=== PATIENT | female | born 1945 | race Caucasian/White ===

== ENCOUNTER → 2017-11-12 | Outpatient (CLI) | payer BC ==
[~2017-11-12] MED LIST: ASPCH81X PO; CALC500T25 PO; CHOL100010 PO; FAMO20TA11 PO; GLUC1500 PO; LISI20TA3 PO; METO50TA16 PO; MOUTLIQ79 PO; OMEG12006 PO; RSTOPS OP; SIMV40TA2 PO
[2017-11-12 13:15] VITALS: BP 150/72; PULSE 60; TEMP 36.4; O2SAT 93
--- NOTE | 2017-11-12 16:39 | Radiation Oncology Follow-Up ---
Radiation Oncology Follow-Up Date of Visit Nov 12, 2017. Reason For Visit 6 month follow up Radiation Completion Date APBI - 04/25/15 Diagnosis (1) Carcinoma in situ of breast Status: Acute Onset Date: 02/09/2015 Stage: 0 Permanent Comment: Abnormal right breast mammogram 12/30/2014 Status post stereotactic biopsy 02/09/2015 revealing DCIS Estrogen receptor positive and progesterone receptor positive Status post right partial mastectomy 03/10/2015 Stage [id number] Status post completion of radiation therapy 04/25/2015 utilizing accelerated partial breast treatment. Received 3850 cGy Last Edited By: Irene Jimenes on May 24, 2015 14:21 History of Present Illness Ms. Ortega has a history of breast cancer. The patient's mother in her late 70s with a history of breast cancer treated with mastectomy. She from a pancreatic cancer. She has been followed with screening mammograms and her most recent was on 12/30/2014. In the right breast a clustered fine pleomorphic linear branching calcifications were present at the 3 o'clock position. Additional views were recommended. On 01/12/2015 a digital diagnostic and magnification view images were taken. This showed greater than 10 clustered pleomorphic, linear and branching calcifications in the upper inner quadrant posteriorly. This was given a BI-RADS Category 4C. On 2014 patient underwent a stereotactic guided biopsy of the right breast lesion. 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 Estrogen receptors were positive (100%, strong intensity) . Progesterone receptors were positive (5%, strong intensity). The size of the DCIS was 1 cm in greatest dimension. Case: [id number]. Patient was seen by Dr. Chon Becerra who discussed treatment options with the patient. The patient opted to proceed with breast conserving therapy. Therefore on 03/10/2015 the patient underwent a needle localized right partial mastectomy. The partial mastectomy specimen confirmed residual ductal carcinoma in situ, solid with comedo necrosis and nuclear grade 3 of 3. The extent of DCIS was estimated at 1.5 cm. The margins were uninvolved by DCIS. The DCIS extended to within 0.6 cm at the superior margin, 0.6 cm of the deep margin and 1 cm from the medial margin. Microcalcifications were present associated with DCIS. No invasive carcinoma was identified. The staging was pTis pNx. Case: [id number]. We were asked to see the patient in referral to discuss with her the role of adjuvant radiation. She return to our office and underwent a CT simulation. She was found to be a good candidate for accelerated partial breast therapy. Interim History She been doing well over the past 6 months. She denies any changes to her breast. She has noted no masses or tenderness and no change of the axilla. She has had no swelling of her arm. She is up-to-date on mammography. She had been a patient of . He has now retired. She is requesting that we order and schedule her follow-up mammography. She had been having her mammograms in [place]. She lives in [place]. She would like to have her mammograms closer to home. Allergies Coded Allergies: No Known Allergies (Unverified , 04/07/15) Home Medications Scheduled Aspirin (Aspirin Chewable), 81 MG PO DAILY Calcium Carbonate (Calcium), 1 TAB PO DAILY Cholecalciferol (Vitamin D), 1,000 INTER.UNIT PO DAILY Cyclosporine (Restasis Eye Drops), 1 DROP OP BID Famotidine (Pepcid), 20 MG PO BID Enfoigrqbqo-Kebkwzfgrdk-Xyh C- (Glucosamine Chondroitin 1), 1 CAP PO BIDM Lisinopril (Prinivil), 1 TAB PO DAILY Metoprolol Tartrate (Lopressor) (Lopressor), 1 TAB PO BID Mouthwashes (Biotene Dry Mouth Mouthwa), 1 APPLN PO 2-3 times daily [place]-3 Fatty Acids ([place] 3), 1 CAP PO BID Simvastatin (Zocor), 40 MG PO QPM Review of Systems Gastrointestinal: Symptoms: WNL Oral: Symptoms: No Problems Respiratory: Symptoms: WNL, SOB With Exertion Other Respiratory: "I run out of air" Urinary: Symptoms: WNL Skin: Symptoms: No Problems Breast: Right Upper Arm Measurement: 25.0 Right Mid Arm Measurement: 23.4 Right Wrist Measurement: 15.1 Left Upper Arm Measurement: 26.0 Left Mid Arm Measurement: 22.8 Left Wrist Measurement: 14.9 Arm Dominence: Right Physical Exam Vital Signs Date Time Temp Pulse Resp B/P (MAP) Pulse Ox O2 Delivery O2 Flow Rate FiO2 11/12/17 13:15 36.4 60 16 150/72 93 Fatigue: None General Appearance: no apparent distress Eyes: normal inspection, EOMI ENT: normal ENT inspection, hearing grossly normal Neck: no adenopathy, thyroid normal Respiratory/Chest: lungs clear, no respiratory distress, no accessory muscle use Breast: Breast examination reveals well-healed incision of the the right breast. There are no masses or tenderness and no axillary adenopathy. She has no skin retractions or nipple changes. Using the Laurens score of cosmesis she has an excellent outcome. The left breast showed no masses or tenderness and no axillary adenopathy. Cardiovascular: regular rate, rhythm, no gallop, no murmur Extremities: non-tender, normal inspection, no pedal edema Neurologic/Psychiatric: no motor/sensory deficits, alert, + depressed affect ( Discussed bereavement. Recently lost her .) Skin: warm/dry Pain Management Patient Reports Pain: No Initial Pain Intensity: 0.0 Pain Management Plan She denies pain therefore requires no pain management. Laboratory Laboratory Results: not applicable Pathology Pathology Results: not applicable Imaging Imaging Studies: were reviewed Imaging Comments She had a mammogram on January 03, 2017. This was performed at [facility]. No evidence of breast malignancy. A diagnostic mammogram is recommended in 12 months. BI-RADS Category 2. Assessment & Plan Plan: Continue with yearly mammography. An order has been written and we are going to call [facility]. She would like to have her mammograms there. She will continue follow-up with her primary care provider. We asked her to return to our office in 1 year. She may call if she has any questions or concerns in the interim. Total Time In Follow-Up I spent 20 minutes speaking to the patient in performing examination. I spent 15 minutes reviewing information and completing this note. Copy To Shannan Block PA-C Problem Qualifiers (1) Carcinoma in situ of breast: Carcinoma in situ of breast type: intraductal Laterality: right Qualified Codes: D05.11 - Intraductal carcinoma in situ of right breast
== END | disposition home or self-care (01) ==
LOC: C.ONC 13:09
PROVIDERS: ATTEND Physician Assistant Medical
DX: Z08 Encounter for follow-up examination after completed treatment for malignant neoplasm (principal); Z92.3 Personal history of irradiation; Z86.000 Personal history of in-situ neoplasm of breast

== ENCOUNTER → 2018-01-01 | Day surgery (SDC) | payer BC ==
[2017-12-23 10:19] VITALS: Ht 162.6 cm; Wt 56.8 kg
[~2018-01-01] VITALS: Ht 162.6 cm; Wt 56.8 kg
[~2018-01-01] MED LIST changes: +AMLO-110 PO; +CALC-51 PO; -CALC500T25 PO; +CYCL0.052 OP; +GLYCOPYRROLATE INJ 0.2 MG/ML VIAL ONE; +LIDOCAINE HCL 2% 2 ML VIAL (20MG/ML) ONE; -LISI20TA3 PO; +LSN40 PO; +MULT-506 PO; +PRAV20TA PO; +PROPOFOL IV EMULSION 10 MG/ML 20 ML VIAL ONE; -RSTOPS OP; -SIMV40TA2 PO
--- NOTE | 2018-01-01 13:36 | Endo History and Physical ---
History & Physical Date of Service: January 01, 2018. Chief Complaint: Hx polyps, abnl CEA Referring Physician: Dr Woody History of Present Illness For colonoscopy Past Medical History Angioplasty/Stent, Osteoporosis, Arthritis, Cancer, High Cholesterol, Heart Disease, Syncopal Episodes, Hypertension Past Surgical History Hx Cardiac Surgery: Yes (CARDIAC STENT X 1 10 YRS AGO) Hx Internal Defibrillator: No Hx Pacemaker: No Hx Abdominal Surgery: No Hx of Implantable Prosthesis: No Hx Cancer Surgery: Yes (REMOVED R BREAST TUMOR) Hx Thoracic Surgery: No Hx Orthopedic: No Hx Urinary Tract Surgery: No Family History None Social History Smoking Status: Former Smoker Hx Substance Use: No Hx Alcohol Use: Yes (Occasional Glass of Wine ) Allergies Coded Allergies: No Known Allergies (Unverified , 12/23/17) Current Medications Reported Home Medications Medications Dose Route/Sig Max Daily Dose Days Date Category Norvasc (Amlodipine Besylate) 5 Mg Tab 5 Mg PO QAM 12/23/17 Reported Pravachol (Pravastatin Sodium) 20 Mg Tab 40 Mg PO QAM 12/23/17 Reported Multivitamin (Multivitamins) Tab 1 Tab PO DAILY 12/23/17 Reported Restasis (Cyclosporine (Ophth)) 0.05 % Emu 1 Drops OP BID 30 12/23/17 Reported Vitamin D (Cholecalciferol) 1,000 Unit Tab 1 Tab PO DAILY 12/23/17 Reported Lisinopril 40 Mg Tab 1 Tab PO QAM 12/23/17 Reported Calcium (Calcium Carbonate-Vitamin D) 1 Tab Tab 1,000 Mg PO DAILY 12/23/17 Reported Biotene Dry Mouth Mouthwa (Mouthwashes) 1 Liq Liq 1 Appln PO 2-3 TIMES DAILY 04/07/15 Reported Aspirin Chewable (Aspirin) 81 Mg Chew 81 Mg PO DAILY 04/07/15 Reported [place] 3 ([place]-3 Fatty Acids) 1 Cap Cap 1 Cap PO BID 04/07/15 Reported Glucosamine Chondroitin 1 (Rktojwiwdlp-Jzttipbkzjk-Eaj C-) 1 Cap Cap 1 Cap PO BIDM 04/07/15 Reported Lopressor (Metoprolol Tartrate) 50 Mg Tab 1 Tab PO BID 30 04/07/15 Reported Pepcid (Famotidine) 20 Mg Tab 20 Mg PO BID 04/07/15 Reported Vital Signs Weight (Kilograms): 56.82 Height (Feet): 5 Height (Inches): 4 Physical Exam General Appearance: + thin Respiratory/Chest: Respiratory effort: no dyspnea Cardiovascular: Heart Auscultation: RRR Abdomen: Inspection & Palpation: soft Assessment and Plan Hx polyps for colonoscopy
--- NOTE | 2018-01-01 14:06 | Discharge Instructions ---
Endoscopy Patient Instructions Date / Procedure(s) Performed January 01, 2018. Colonoscopy Allergy Information Coded Allergies: No Known Allergies (Unverified , 12/23/17) Discharge Date / Findings January 01, 2018. Cecal erosions Medication Instructions Restart Stopped Medication(s): resume meds Reported Home Medications Medications Dose Route/Sig Max Daily Dose Days Date Category Norvasc (Amlodipine Besylate) 5 Mg Tab 5 Mg PO QAM 12/23/17 Reported Pravachol (Pravastatin Sodium) 20 Mg Tab 40 Mg PO QAM 12/23/17 Reported Multivitamin (Multivitamins) Tab 1 Tab PO DAILY 12/23/17 Reported Restasis (Cyclosporine (Ophth)) 0.05 % Emu 1 Drops OP BID 30 12/23/17 Reported Vitamin D (Cholecalciferol) 1,000 Unit Tab 1 Tab PO DAILY 12/23/17 Reported Lisinopril 40 Mg Tab 1 Tab PO QAM 12/23/17 Reported Calcium (Calcium Carbonate-Vitamin D) 1 Tab Tab 1,000 Mg PO DAILY 12/23/17 Reported Biotene Dry Mouth Mouthwa (Mouthwashes) 1 Liq Liq 1 Appln PO 2-3 TIMES DAILY 04/07/15 Reported Aspirin Chewable (Aspirin) 81 Mg Chew 81 Mg PO DAILY 04/07/15 Reported [place] 3 ([place]-3 Fatty Acids) 1 Cap Cap 1 Cap PO BID 04/07/15 Reported Glucosamine Chondroitin 1 (Vldmepccztq-Bvzxetcvovu-Dti C-) 1 Cap Cap 1 Cap PO BIDM 04/07/15 Reported Lopressor (Metoprolol Tartrate) 50 Mg Tab 1 Tab PO BID 30 04/07/15 Reported Pepcid (Famotidine) 20 Mg Tab 20 Mg PO BID 04/07/15 Reported Provider Instructions Activity Restrictions - No exercising or heavy lifting for 24 hours. - Do not drink alcohol the day of the procedure. - Do not drive a car or operate machinery until the day after the procedure. - Do not make any important decisions or sign important papers in 24 hours after the procedure. Following Day: - Return to full activity which may include returning to work/school. Diet Start your diet with liquids and light foods (jello, soup, juice, toast). Then eat your usual diet if not nauseated. Treatment For Common After Affects For mild abdominal pain, bloating, or excessive gas: - Rest - Eat lightly - Lie on right side Follow-Up Information Follow-up with as scheduled Anesthesia Information What You Should Know You have had a procedure that required some medicine to reduce anxiety and discomfort. This treatment is called moderate sedation. After receiving the treatment, you may be sleepy, but you will be able to breathe on your own. The effects of the treatment may last for several hours. Follow these instructions along with Activity/Diet recommendations noted above: * Do NOT do anything where dizziness or clumsiness would be dangerous. * Rest quietly at home today, then you can be up and about tomorrow. * Have a responsible person stay with you the rest of today. * You may have had an I.V. today. If so, you may take the dressing off later today. Recommendations Call your doctor if: * Trouble breathing * Continuous vomiting for more than 24 hours * Temperature above 101 degrees * Severe abdominal pain or bloating * Pain not relieved by pain medicine ordered * There is increased drainage or redness from any incision * A large amount of rectal bleeding greater than 2-3 tablespoons. (If you had a polyp/s removed or have hemorrhoids, a small amount of blood - from the rectum is to be expected.) * You have any unanswered questions or concerns. IN THE EVENT OF A SERIOUS EMERGENCY, GO TO THE NEAREST EMERGENCY ROOM Your discharge instructions were prepared by provider Jong Benson. Patient Instructions Signature Page Nannette Ortega Patient (or Guardian) Signature/Date: I have read and understand the instructions given to me by my caregivers. Caregiver/RN/Doctor Signature/Date: The above-named patient and/or guardian has received patient instructions on this date. + Original Patient Signature Page (only) stays with chart. Please make copy for patient.
--- NOTE | 2018-01-01 14:10 | GI REPORT ---
Patient Name: Nannette Ortega Procedure Date: 01/01/2018 1:32 PM Date of : 1945 Admit Type: Outpatient Age: 72 Gender: Female Attending MD: Jong Benson MD Procedure: Colonoscopy Providers: Jong Benson MD Referring MD: Jong Benson MD Indications: Personal history of colonic polyps, Elevated CEA Medicines: Propofol total dose 140 mg IV, Lidocaine 40 mg IV Complications: No immediate complications. Estimated Blood Loss: Estimated blood loss: none. Procedure: Pre-Anesthesia Assessment: - Prior to the procedure, a History and Physical was performed, and patient medications, allergies and sensitivities were reviewed. The patient's tolerance of previous anesthesia was reviewed. - The risks and benefits of the procedure and the sedation options and risks were discussed with the patient. All questions were answered and informed consent was obtained. After I obtained informed consent, the scope was passed under direct vision. Throughout the procedure, the patient's blood pressure, pulse, and oxygen saturations were monitored continuously. The On-site loaner was introduced through the anus and advanced to the terminal ileum. The colonoscopy was performed without difficulty. The patient tolerated the procedure well. The quality of the bowel preparation was good. Findings: A few localized non-bleeding erosions from aspirin were found in the cecum. No stigmata of recent bleeding were seen. The terminal ileum appeared normal. Impression: - A few erosions in the cecum. - The examined portion of the ileum was normal. - No specimens collected. Recommendation: - Discharge patient to home (ambulatory). - Continue present medications. - Repeat colonoscopy in 5 years for surveillance. - Return to primary care physician PRN. Jong Benson M.D. Jong Benson MD 01/01/2018 2:10:21 PM This report has been signed electronically. Note Initiated On: 01/01/2018 1:32 PM Number of Addenda: 0 I attest to the content of the Intraoperative Record and orders documented therein, exceptions below {[id number]}
--- NOTE | 2018-01-01 14:29 | Anesthesiology Progress Note ---
Anesthesia Post Op Note Date & Time January 01, 2018 at 14:28 Vital Signs Pain Intensity: 0 Vital Signs Past 12 Hours Date Time Temp Pulse Resp B/P (MAP) Pulse Ox O2 Delivery O2 Flow Rate FiO2 01/01/18 13:38 36.5 56 16 112/58 (76) 98 Room Air Notes Mental Status: alert / awake / arousable, participated in evaluation Pt Amnestic to Procedure: Yes Nausea / Vomiting: adequately controlled Pain: adequately controlled Airway Patency, RR, SpO2: stable & adequate BP & HR: stable & adequate Hydration State: stable & adequate Anesthetic Complications: no major complications apparent The patient is awake and her vital signs are stable in recovery.
[2018-01-01 14:40] VITALS: BP 148/72; PULSE 65; O2SAT 100
== END | disposition home or self-care (01) ==
LOC: C.GI 12:59
PROVIDERS: ATTEND Internal Medicine Gastroenterology
DX: Z86.010 Personal history of colon polyps (principal); R97.0 Elevated carcinoembryonic antigen [CEA]; K63.89 Other specified diseases of intestine; I10 Essential (primary) hypertension; Z85.3 Personal history of malignant neoplasm of breast; Z79.899 Other long term (current) drug therapy; Z87.891 Personal history of nicotine dependence; Z79.82 Long term (current) use of aspirin

== ENCOUNTER → 2018-01-21 | Outpatient (CLI) | payer BC ==
[~2018-01-21] MED LIST changes: -GLYCOPYRROLATE INJ 0.2 MG/ML VIAL ONE; -LIDOCAINE HCL 2% 2 ML VIAL (20MG/ML) ONE; -PROPOFOL IV EMULSION 10 MG/ML 20 ML VIAL ONE
--- NOTE | 2018-01-21 13:17 | Discharge Instructions ---
Discharge Instructions Procedure Procedure Date: January 21, 2018. Reason for visit: Clustered Calcs Right Breast, Hx R Breast Ca. Discharge Discharge Date: January 21, 2018. Discharge Diagnosis: post right breast stereotactic guided biopsy Medications Restart Stopped Medication(s): May restart Aspirin and fish oil tomorrow Instructions Activity Recommendations: Additional Limitations (see below) Return to School/Work: no limitations Recommended Home Diet: No Limitations Provider Instructions: ACTIVITY RECOMMENDATIONS: * No lifting, pushing, pulling or exercising the affected side for three days. RETURN TO SCHOOL/WORK: * You may return to work/school after the procedure, but do not perform any strenuous activities for 24 to 48 hours. MEDICATIONS: * Tylenol (two 325 mg) every four to six hours if needed for mild pain (if not allergic to Tylenol). DIET: * Resume previous diet. SPECIAL CARE INSTRUCTIONS: * Keep biopsy site dry for 24 hours. May shower after 24 hours, but do not soak (bathe) incision. * May remove Tegaderm (plastic patch) tomorrow AFTER showering. * Leave the steri-strips on for one week. Allow the steri-strips to fall off by themselves. If not off after one week, you may remove them. You may place a Bandaid crosswise over the strips, if desired. * Apply ice 10 minutes on and 10 minutes off as needed. * Wear a bra at bedtime to sleep more comfortably for 2-3 days. * Your referring physician should have the results after approximately 5 to 7 business days. * Call for unusual bleeding, fever, drainage, etc or if you have any questions call [phone] during normal business hours or after hours call Dr Marie, . FOLLOW UP VISIT: Follow-up with Referring Physician as scheduled. Allergies Coded Allergies: No Known Allergies (Unverified , 12/23/17) Jose Enrique Doll Recommendations: Call your doctor if: * Temperature above 101 degrees * Pain not relieved by pain medicine ordered * There is increased drainage or redness from any incision * You have any unanswered questions or concerns. Your Doctors Instructions noted above were prepared by provider Angela Marie. Patient Signature Section: Patient Instructions Signature Page Nannette Ortega Patient (or Guardian) Signature/Date: I have read and understand the instructions given to me by my caregivers. Caregiver/RN/Doctor Signature/Date: The above-named patient and/or guardian has received patient instructions on this date. + Original Patient Signature Page (only) stays with chart. Please make copy for patient.
--- NOTE | 2018-01-22 14:20 | MAMMOGRAPHY REPORT ---
STEREOTACTIC GUIDED BIOPSY RIGHT BREAST: 01/21/2018 CLINICAL HISTORY: Indeterminate clustered microcalcifications in the 12:00 right breast. Patient pre sents for stereotactic guided biopsy. She has a history of right breast DCIS diagnosed in 2014, stat us post breast conservation treatment. COMPARISON: Comparison is made to exam dated: Bilateral diagnostic mammography including right spot c ompression tomosynthesis and spot magnification views dated 01/06/2018, previous screening mammograms d ated 01/03/2017, specimen radiograph and needle localization performed 03/10/2015, stereotactic guided ri t breast biopsy dated 02/09/2015. PATIENT CONSENT: After explaining the risks, benefits and alternatives of the procedure to the patien t, informed consent was obtained both verbally and in writing. Specific risks include: Bleeding, inf ection, puncture of adjacent structure, pain, nontarget biopsy, sampling error, metal allergy and med ication reaction. PROCEDURE DESCRIPTION: A time-out was performed and the right breast was confirmed as the site of bio psy. The patient was placed prone on the stereotactic biopsy table and the breast was placed in CC fr om above compression. A tomosynthesis neon glass blower image of the right breast was obtained which demonstrates the clustered calcifications in question and they were targeted utilizing the coordinates obtained b y the computer. The skin was prepped with Betadine. 1% Lidocaine with and without epinipherine was ad ministered as local anesthesia. A small skin incision was made. Through the incision, the needle was inserted to the depth determined by the computer. 10 samples were obtained using a [employer] 9-gau FilmLoop vacuum-assisted biopsy device. The specimen radiograph demonstrated several medical sales representative microca lcifications, therefore, a metallic marker was placed at the biopsy site. There was no immediate comp lication. Hemostasis was achieved after several minutes of manual compression. The samples were sent to pathology in two appropriately labeled containers, "with calcifications" and "without calcificati ons". All of the samples were obtained from the same single biopsy site. Postprocedure CC and ML views of the right breast were obtained. There is a new dumbbell-shaped bio psy marker clip and no significant hematoma in the 12:00 middle one third of the right breast at the site of the biopsied microcalcifications based on the postprocedure right MLO view there are 3 cm of inferior displacement of the biopsy marker clip in relation to the air pocket denoting the biopsy cav ity, likely secondary to according affect. IMPRESSION: STEREOTACTIC GUIDED BIOPSY Status post right breast stereotactic tomosynthesis guided biopsy of clustered micro calcifications i n the 12:00 right breast, with biopsy marker placed at the site. The patient will receive notification of the biopsy results from her referring physician. Angela Marie M.D. ay/:01/21/2018 13:58:27 Nursing Tech: Ramya MAYO)(M), [facility]
--- NOTE | 2018-01-22 14:24 | MAMMOGRAPHY REPORT ---
UNILATERAL RIGHT DIGITAL DIAGNOSTIC MAMMOGRAM TOMOSYNTHESIS: 01/21/2018 CLINICAL HISTORY: 72-year-old woman status post right breast stereotactic guided biopsy of clustered micro calcifications in the 12:00 axis. She has a history of right breast DCIS diagnosed in 2015, [facility] post breast conservation treatment. Please refer to the report from right breast stereotactic tomosynthesis guided biopsy performed at e same time for full detail. IMPRESSION: POST PROCEDURE IMAGING FOR MARKER PLACEMENT Please refer to the report from right breast stereotactic tomosynthesis guided biopsy performed at e same time for full detail. Approximately 10% of breast cancers are not detected with mammography. A negative mammographic report should not delay biopsy if a clinically suggestive mass is present. Angela Marie M.D. ay/:01/21/2018 13:54:29 Ice Guard Tester: Ramya ANDERSON(Blanca)([place]), [facility] BI-RADS Code: Post Procedure Imaging For Marker Placement
== END | disposition home or self-care (01) ==
LOC: C.MAMM 12:35
PROVIDERS: ATTEND Physician Assistant Medical
DX: R92.0 Mammographic microcalcification found on diagnostic imaging of breast (principal); Z85.3 Personal history of malignant neoplasm of breast

== ENCOUNTER 2022-08-22 10:39 | Inpatient (IN) ==
--- NOTE | 2022-08-22 10:43 | Emergency Department Note ---
Impression & Plan Acute hyperkalemia, Dementia, Agitation, Acute dehydration, Acute renal failure (ARF) ED Provider Note NAME: CHANA ROSA AGE: 77 SEX: F : 1945 ARRIVES VIA: Ambulance INFORMANT: Patient, ED PROVIDER(S): Chip Will MD Chief Complaint: Lethargy, weakness HPI: Patient presents due to concern for the above symptoms and is presenting from [facility]. Is been ongoing for the last 24 to 48 hours. The patient does have an history of prior dementia. No reported falls or trauma the patient has had increasing lethargy confusion and weakness from her baseline. Patient denies any current symptoms although occasionally will complain of pain but is unable to explain where. Again no reported trauma. History may be limited given the patient's prior history of dementia. Patient's BSG was in the 1 teens. No additional exacerbating or remitting factors. ROS: See HPI for pertinent positives and negatives. A total of 10 systems were reviewed and otherwise negative. May be limited given the patient's history of dementia Past medical history: See below Surgical history: See below Social history: See below Physical Exam: GENERAL: NAD, wearing a mask, non-toxic. Wearing glasses. EYE EXAM: Normal conjunctiva. PERRL, no anisocoria and EOM's grossly intact w/o pain. Head: Normocephalic atraumatic. NECK: Supple, no nuchal rigidity, no adenopathy, non-tender. No signs of meningismus. FROM of the neck with good chin to chest and neck extension. No stridor. No TTP or midline step-offs. LUNGS: Clear to auscultation. Normal chest wall mechanics. HEART: NSR, no MRG. ABDOMEN: Abdomen soft, non-tender, normo-active bowel sounds, no masses, no rebound or guarding. BACK: No CVA TTP. No obvious rashes or bruising. SKIN: No rashes and no bruising. UPPER EXTREMITIES: Upper extremities are grossly normal. No TTP or obvious deformity. LOWER EXTREMITIES: Grossly normal, no edema. No TTP or obvious deformity. NEURO EXAM: Awake and alert can follow some basic commands, cranial nerves II- XII grossly intact, normal speech, moves all 4 extremities. Differential diagnoses: Infection, dehydration, metabolic abnormality, hypo/hyperglycemia, electrolyte disturbance, anemia, hypoxia, cardiac sources, intracerebral event, toxicologic, neurologic, as well as other pathologies. Course: Patient was seen and evaluated the bedside. Full history physical exam was performed. EKG interpreted by me Sinus bradycardia, rate of 59, normal intervals normal axis no ST elevations. No significant change from comparison December 03, 2021. Imaging Studies: See Below Cardiac monitoring: An order was placed for continuous cardiac monitoring. The monitor shows a rate of 62 with sinus rhythm. MDM: Patient presents due to concern for confusion and weakness. Blood work is obtained along with a CT of the head. The patient's blood work showed normal white counts with anemia hemoglobin 9.7. Platelet count is unremarkable. The patient does have an initial potassium of 6.7. Patient was ordered 2 g of calcium gluconate, 10 of IV insulin and 2 A of dextrose as well as albuterol 10 mg to be nebulized. The patient given her dementia thought that she was able to leave and removed an IV. This did delay care. A subsequent IV was placed medications were given. I did ensure the patient did receive 2 A of dextrose. Patient was having increasing agitation did pull out her second IV. The patient was given Zyprexa IM 5 mg. Repeat BMP was pending. Viral panel is negative. Repeat BMP shows potassium of 5.7. I did speak with the on-call hospitalist AUDELIA Tapia and the patient was admitted by Dr. Schmitz. CT of the head was obtained and unremarkable. The patient did have screening chest x-ray as well as bilateral hip x-rays which were negative. The patient did have a CT that pelvis Noncon given patient's acute renal failure showed no urinary calculi or hydro-. Trace bilateral perinephric stranding. Given this patient was ordered Rocephin. No bowel obstruction. Critical Care: I have personally spent 77 minutes of critical care time in direct management of this patient. This includes bedside care, interpretation of diagnostic studies, and testing, discussion with consultants, patient, and family members, and other require inpatient management activities. This 77 minutes is in excess of all separately billable procedures. Past Med/Surg History Medical History Acute kidney injury 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) Dementia Depression GERD (gastroesophageal reflux disease) HTN (hypertension) Hypertension Mixed dyslipidemia Vertigo Surgical History History of cataract surgery Family History Mother Aortic aneurysm, ruptured Breast cancer Skin cancer Pancreatic cancer Father Lung cancer Social History Smoking Status: Former smoker Preferred Language: Latvian Communication Ability: Impaired Upholstery Technician Required: No Beliefs That Will Affect Care: None Current Living Situation: Personal Care Facility Feels Safe at Home: Yes Allergies Allergies Allergy/AdvReac Type Severity Reaction Status Date / Time No Known Allergies Allergy Verified 08/22/22 15:35 Home Meds Home Medications Medication Instructions Recorded Confirmed aspirin 81 mg tablet,delayed 81 mg PO DAILY 06/08/19 08/22/22 release cholecalciferol (vitamin D3) 25 1,000 units PO DAILY 06/08/19 08/22/22 mcg (1,000 unit) capsule lisinopril 40 mg tablet 40 mg PO DAILY #90 tabs 06/08/19 08/22/22 atorvastatin 40 mg tablet 40 mg PO DAILY 04/01/20 08/22/22 calcium carbonate 600 mg calcium 300 mg PO TID 04/01/20 08/22/22 (1,500 mg) tablet cyclosporine 0.05 % eye drops 1 drops ophthalmic (eye) Q12H 04/01/20 08/22/22 (Restasis MultiDose) fluticasone propionate 50 2 sprays intranasal QPM 04/01/20 08/22/22 mcg/actuation nasal spray,suspension (Flonase Allergy Relief) sertraline 25 mg tablet 25 mg PO HS 04/01/20 08/22/22 [id number] C-Mn 500 2 cap PO DAILY 05/31/21 08/22/22 mg-400 mg capsule saliva substitute combo no.9 1 ea mucous membrane BID 05/31/21 08/22/22 (Biotene Dry Mouth Oral Rinse mouthwash) metoprolol tartrate 50 mg tablet 25 mg PO BID 06/05/21 08/22/22 quetiapine 25 mg tablet 25 mg PO HS 12/03/21 08/22/22 acetaminophen 325 mg tablet 650 mg PO Q6 PRN Fever Or Pain 08/22/22 08/22/22 food supplemt, lactose-reduced 1 - 2 ea PO DAILY 08/22/22 08/22/22 guaifenesin 600 mg tablet, 600 mg PO BID PRN cough/congestion 08/22/22 08/22/22 extended release 12 hr (Mucinex) multivitamin (Daily-Marleny tablet) 1 tab PO DAILY 08/22/22 08/22/22 omega-3 fatty acids 500 mg capsule 1,000 mg PO QAM 08/22/22 08/22/22 omeprazole 20 mg capsule,delayed 20 mg PO DAILY 08/22/22 08/22/22 release Previous Rx's Medication Instructions Recorded ketoconazole 2 % shampoo 1 applic topical .COMPLEX #120 mL 08/11/21 rivastigmine 4.6 mg/24 hour 4.6 mg transdermal DAILY #30 ea 11/17/21 transdermal patch betamethasone dipropionate 0.05 % 1 applic topical DAILY #60 mL 06/01/22 lotion Results & Data (ED) Vital Signs Vital Signs - 24 hr 08/22/22 10:49 08/22/22 10:49 08/22/22 10:49 Temperature 36.7 C Temperature Source Axillary Pulse Rate 56 L Pulse Rate [Apical] Pulse Rate from SpO2 Sensor Pulse Rhythm Regular Pulse Rhythm [Apical] Pulse Strength Normal Respiratory Rate 18 18 Respiratory Effort / Characteristics Non-Labored Non-Labored Respiratory Depth Normal Normal Respiratory Pattern Regular Regular Blood Pressure 128/54 L Blood Pressure [Left Arm] Blood Pressure Mean 78 Blood Pressure Mean [Left Arm] Blood Pressure Position Lying Blood Pressure Position [Left Arm] Pulse Oximetry 100 Oxygen Delivery Method Room Air Room Air Oxygen Flow Rate 0 Sepsis Recent Fever Within 48 Hours No Sepsis New/Unexplained Change in Mental Status No Sepsis Action Taken by Nursing No Action Required 08/22/22 11:07 08/22/22 10:49 08/22/22 10:54 Temperature Temperature Source Pulse Rate 56 L 56 L Pulse Rate [Apical] Pulse Rate from SpO2 Sensor 56 L Pulse Rhythm Regular Pulse Rhythm [Apical] Pulse Strength Respiratory Rate 18 25 H Respiratory Effort / Characteristics Respiratory Depth Respiratory Pattern Blood Pressure 128/54 L Blood Pressure [Left Arm] Blood Pressure Mean 78 Blood Pressure Mean [Left Arm] Blood Pressure Position Blood Pressure Position [Left Arm] Pulse Oximetry 100 99 Oxygen Delivery Method Room Air Oxygen Flow Rate Sepsis Recent Fever Within 48 Hours Sepsis New/Unexplained Change in Mental Status Sepsis Action Taken by Nursing 08/22/22 10:54 08/22/22 11:00 08/22/22 11:30 Temperature Temperature Source Pulse Rate 60 58 L 61 Pulse Rate [Apical] Pulse Rate from SpO2 Sensor 61 55 L 61 Pulse Rhythm Pulse Rhythm [Apical] Pulse Strength Respiratory Rate 30 H 14 25 H Respiratory Effort / Characteristics Respiratory Depth Respiratory Pattern Blood Pressure Blood Pressure [Left Arm] Blood Pressure Mean Blood Pressure Mean [Left Arm] Blood Pressure Position Blood Pressure Position [Left Arm] Pulse Oximetry 96 99 100 Oxygen Delivery Method Oxygen Flow Rate Sepsis Recent Fever Within 48 Hours Sepsis New/Unexplained Change in Mental Status Sepsis Action Taken by Nursing 08/22/22 11:48 08/22/22 12:57 08/22/22 12:59 Temperature Temperature Source Pulse Rate Pulse Rate [Apical] Pulse Rate from SpO2 Sensor 69 Pulse Rhythm Pulse Rhythm [Apical] Pulse Strength Respiratory Rate 24 Respiratory Effort / Characteristics Respiratory Depth Respiratory Pattern Blood Pressure 90/39 L Blood Pressure [Left Arm] Blood Pressure Mean 56 Blood Pressure Mean [Left Arm] Blood Pressure Position Blood Pressure Position [Left Arm] Pulse Oximetry 100 Oxygen Delivery Method Oxygen Flow Rate Sepsis Recent Fever Within 48 Hours Sepsis New/Unexplained Change in Mental Status Sepsis Action Taken by Nursing 08/22/22 13:00 08/22/22 13:00 08/22/22 14:46 Temperature Temperature Source Pulse Rate Pulse Rate [Apical] 82 Pulse Rate from SpO2 Sensor 69 Pulse Rhythm Pulse Rhythm [Apical] Regular Pulse Strength Respiratory Rate 18 Respiratory Effort / Characteristics Non-Labored Respiratory Depth Normal Respiratory Pattern Regular Blood Pressure 96/48 L Blood Pressure [Left Arm] 115/57 L Blood Pressure Mean 64 Blood Pressure Mean [Left Arm] 76 Blood Pressure Position Blood Pressure Position [Left Arm] Lying Pulse Oximetry 98 98 Oxygen Delivery Method Room Air Oxygen Flow Rate Sepsis Recent Fever Within 48 Hours Sepsis New/Unexplained Change in Mental Status Sepsis Action Taken by Care Home Medications Current Medication List: was personally reviewed by me Laboratory Data Attestation: I reviewed the patient's lab results. Result diagrams: 08/23/22 04:45 08/23/22 04:45 Lab Results 08/22/22 08/22/22 08/22/22 Range/Units 10:55 10:55 10:55 WBC 6.09 (4.8-10.8) K/ul RBC 3.10 L (3.93-5.22) M/uL Hgb 9.7 L (12.0-16.0) g/dl Hct 29.2 L (34.1-44.9) % MCV 94.2 (80.0-100.0) fL MCH 31.3 (25.0-34.0) pg MCHC 33.2 (32.0-36.0) g/dL RDW Std Deviation 47.6 H (36.4-46.3) fL RDW Coeff of Javier 13.8 (11.5-14.5) % Plt Count 207 (130-400) K/uL MPV 10.5 (9.4-12.3) fL Immature Gran % (Auto) 0.5 % Neut % (Auto) 71.2 % Lymph % (Auto) 14.9 % [place] % (Auto) 9.7 % Eos % (Auto) 3.0 % Baso % (Auto) 0.7 % Neut # (Auto) 4.34 (1.4-6.5) K/uL Lymph # (Auto) 0.91 L (1.2-3.4) K/uL [place] # (Auto) 0.59 (0.24-0.82) K/uL Eos # (Auto) 0.18 (0-0.50) K/uL Baso # (Auto) 0.04 (0-0.2) K/uL Immature Gran # (Auto) 0.03 H (0.00-0.02) K/uL Sodium 135 L (136-145) mmol/L Potassium 6.7 H* (3.5-5.1) mmol/L Chloride 110 H (98-107) mmol/L Carbon Dioxide 17 L (21-32) mmol/L Anion Gap 8 (3-11) BUN 73 H (6-23) mg/dl Creatinine 3.54 H (0.6-1.2) mg/dl Est Cr Clr Drug Dosing 11.2 ml/min Est GFR ( Amer) 13.7 ml/min Est GFR (Non-Af Amer) 11.9 ml/min BUN/Creatinine Ratio 20.6 H (10-20) Glucose 125 H (70-99(Fasting)) mg/dl POC Glucose (70-99) mg/dl Calcium 9.6 (8.5-10.1) mg/dl Total Bilirubin 0.3 (0.2-1.0) mg/dl AST 18 (13-39) U/L ALT 13 (7-52) U/L Alkaline Phosphatase 80 (34-104) U/L Troponin I High Sens 2.9 (0-14) pg/ml Total Protein 7.3 (6.0-8.3) gm/dl Albumin 3.8 (3.4-5.0) gm/dl Globulin 3.5 (2.5-4.0) gm/dl Albumin/Globulin Ratio 1.1 (0.9-2) TSH 2.267 (0.300-4.500) uIu/ml Urine Color Urine Appearance (Clear) Urine pH (4.5-7.5) Ur Specific Hooper (1.000-1.030) Urine Protein (Negative) Urine Glucose (UA) (Negative) Urine Ketones (Negative) Urine Blood (Negative) Urine Nitrite (Negative) Urine Bilirubin (Negative) Urine Urobilinogen (Negative) Ur Leukocyte Esterase (Negative) Urine WBC (Auto) (0-5) /hpf Urine RBC (Auto) (0-4) /hpf U Hyaline Cast (Auto) (0-5) /lpf U Epithel Cells (Auto) (0-5) /lpf Urine Bacteria (Auto) (Negative) Ur Renal Epithelial Cell (0-5) /lpf Urine Osmolality (500-800) mOsm/kg Ur Random Creatinine mg/dl U Random Total Protein (0-11.9) mg/dl Ur Random Sodium mmol/L Protein/Creatinin Ratio (0-0.2) Adenovirus (PCR) (NotDetected) B. pertussis DNA (PCR) (NotDetected) B.parapertussis DNA PCR (NotDetected) C. pneumoniae DNA (PCR) (NotDetected) Coronavirus OC43 (PCR) (NotDetected) Coronavirus HKU1 (PCR) (NotDetected) Coronavirus 229E (PCR) (NotDetected) SARS-CoV-2 (PCR) (NotDetected) Coronavirus NL63 (PCR) (NotDetected) Human Metapneumovir PCR (NotDetected) Influenza Type A (PCR) (NotDetected) Influenza Type B (PCR) (NotDetected) M. pneumoniae (PCR) (NotDetected) Parainfluenza 1 (PCR) (NotDetected) Parainfluenza 2 (PCR) (NotDetected) Parainfluenza 3 (PCR) (NotDetected) Parainfluenza 4 (PCR) (NotDetected) RSV (PCR) (NotDetected) Entero/Rhino (PCR) (NotDetected) 08/22/22 08/22/22 08/22/22 Range/Units 11:10 11:10 11:10 WBC (4.8-10.8) K/ul RBC (3.93-5.22) M/uL Hgb (12.0-16.0) g/dl Hct (34.1-44.9) % MCV (80.0-100.0) fL MCH (25.0-34.0) pg MCHC (32.0-36.0) g/dL RDW Std Deviation (36.4-46.3) fL RDW Coeff of Javier (11.5-14.5) % Plt Count (130-400) K/uL MPV (9.4-12.3) fL Immature Gran % (Auto) % Neut % (Auto) % Lymph % (Auto) % [place] % (Auto) % Eos % (Auto) % Baso % (Auto) % Neut # (Auto) (1.4-6.5) K/uL Lymph # (Auto) (1.2-3.4) K/uL [place] # (Auto) (0.24-0.82) K/uL Eos # (Auto) (0-0.50) K/uL Baso # (Auto) (0-0.2) K/uL Immature Gran # (Auto) (0.00-0.02) K/uL Sodium (136-145) mmol/L Potassium (3.5-5.1) mmol/L Chloride (98-107) mmol/L Carbon Dioxide (21-32) mmol/L Anion Gap (3-11) BUN (6-23) mg/dl Creatinine (0.6-1.2) mg/dl Est Cr Clr Drug Dosing ml/min Est GFR ( Amer) ml/min Est GFR (Non-Af Amer) ml/min BUN/Creatinine Ratio (10-20) Glucose (70-99(Fasting)) mg/dl POC Glucose (70-99) mg/dl Calcium (8.5-10.1) mg/dl Total Bilirubin (0.2-1.0) mg/dl AST (13-39) U/L ALT (7-52) U/L Alkaline Phosphatase (34-104) U/L Troponin I High Sens (0-14) pg/ml Total Protein (6.0-8.3) gm/dl Albumin (3.4-5.0) gm/dl Globulin (2.5-4.0) gm/dl Albumin/Globulin Ratio (0.9-2) TSH (0.300-4.500) uIu/ml Urine Color Yellow Urine Appearance Clear (Clear) Urine pH 6.5 (4.5-7.5) Ur Specific Hooper 1.014 (1.000-1.030) Urine Protein Negative (Negative) Urine Glucose (UA) Negative (Negative) Urine Ketones Negative (Negative) Urine Blood Negative (Negative) Urine Nitrite Negative (Negative) Urine Bilirubin Negative (Negative) Urine Urobilinogen Negative (Negative) Ur Leukocyte Esterase 3+ H (Negative) Urine WBC (Auto) 10-30 H (0-5) /hpf Urine RBC (Auto) 0-4 (0-4) /hpf U Hyaline Cast (Auto) 1-5 (0-5) /lpf U Epithel Cells (Auto) >30 H (0-5) /lpf Urine Bacteria (Auto) Negative (Negative) Ur Renal Epithelial Cell 0-5 (0-5) /lpf Urine Osmolality 431 L (500-800) mOsm/kg Ur Random Creatinine mg/dl U Random Total Protein (0-11.9) mg/dl Ur Random Sodium mmol/L Protein/Creatinin Ratio (0-0.2) Adenovirus (PCR) Not Detected (NotDetected) B. pertussis DNA (PCR) Not Detected (NotDetected) B.parapertussis DNA PCR Not Detected (NotDetected) C. pneumoniae DNA (PCR) Not Detected (NotDetected) Coronavirus OC43 (PCR) Not Detected (NotDetected) Coronavirus HKU1 (PCR) Not Detected (NotDetected) Coronavirus 229E (PCR) Not Detected (NotDetected) SARS-CoV-2 (PCR) Not Detected (NotDetected) Coronavirus NL63 (PCR) Not Detected (NotDetected) Human Metapneumovir PCR Not Detected (NotDetected) Influenza Type A (PCR) Not Detected (NotDetected) Influenza Type B (PCR) Not Detected (NotDetected) M. pneumoniae (PCR) Not Detected (NotDetected) Parainfluenza 1 (PCR) Not Detected (NotDetected) Parainfluenza 2 (PCR) Not Detected (NotDetected) Parainfluenza 3 (PCR) Not Detected (NotDetected) Parainfluenza 4 (PCR) Not Detected (NotDetected) RSV (PCR) Not Detected (NotDetected) Entero/Rhino (PCR) Not Detected (NotDetected) 08/22/22 08/22/22 08/22/22 Range/Units 11:10 14:10 14:26 WBC (4.8-10.8) K/ul RBC (3.93-5.22) M/uL Hgb (12.0-16.0) g/dl Hct (34.1-44.9) % MCV (80.0-100.0) fL MCH (25.0-34.0) pg MCHC (32.0-36.0) g/dL RDW Std Deviation (36.4-46.3) fL RDW Coeff of Javier (11.5-14.5) % Plt Count (130-400) K/uL MPV (9.4-12.3) fL Immature Gran % (Auto) % Neut % (Auto) % Lymph % (Auto) % [place] % (Auto) % Eos % (Auto) % Baso % (Auto) % Neut # (Auto) (1.4-6.5) K/uL Lymph # (Auto) (1.2-3.4) K/uL [place] # (Auto) (0.24-0.82) K/uL Eos # (Auto) (0-0.50) K/uL Baso # (Auto) (0-0.2) K/uL Immature Gran # (Auto) (0.00-0.02) K/uL Sodium 139 (136-145) mmol/L Potassium 5.7 H (3.5-5.1) mmol/L Chloride 115 H (98-107) mmol/L Carbon Dioxide 17 L (21-32) mmol/L Anion Gap 7 (3-11) BUN 74 H (6-23) mg/dl Creatinine 3.20 H D (0.6-1.2) mg/dl Est Cr Clr Drug Dosing 12.4 ml/min Est GFR ( Amer) 15.5 ml/min Est GFR (Non-Af Amer) 13.4 ml/min BUN/Creatinine Ratio 23.1 H (10-20) Glucose 37 L* (70-99(Fasting)) mg/dl POC Glucose 86 (70-99) mg/dl Calcium 9.4 (8.5-10.1) mg/dl Total Bilirubin (0.2-1.0) mg/dl AST (13-39) U/L ALT (7-52) U/L Alkaline Phosphatase (34-104) U/L Troponin I High Sens (0-14) pg/ml Total Protein (6.0-8.3) gm/dl Albumin (3.4-5.0) gm/dl Globulin (2.5-4.0) gm/dl Albumin/Globulin Ratio (0.9-2) TSH (0.300-4.500) uIu/ml Urine Color Urine Appearance (Clear) Urine pH (4.5-7.5) Ur Specific Hooper (1.000-1.030) Urine Protein (Negative) Urine Glucose (UA) (Negative) Urine Ketones (Negative) Urine Blood (Negative) Urine Nitrite (Negative) Urine Bilirubin (Negative) Urine Urobilinogen (Negative) Ur Leukocyte Esterase (Negative) Urine WBC (Auto) (0-5) /hpf Urine RBC (Auto) (0-4) /hpf U Hyaline Cast (Auto) (0-5) /lpf U Epithel Cells (Auto) (0-5) /lpf Urine Bacteria (Auto) (Negative) Ur Renal Epithelial Cell (0-5) /lpf Urine Osmolality (500-800) mOsm/kg Ur Random Creatinine 83.1 mg/dl U Random Total Protein 22.9 H (0-11.9) mg/dl Ur Random Sodium 29 mmol/L Protein/Creatinin Ratio 0.3 H (0-0.2) Adenovirus (PCR) (NotDetected) B. pertussis DNA (PCR) (NotDetected) B.parapertussis DNA PCR (NotDetected) C. pneumoniae DNA (PCR) (NotDetected) Coronavirus OC43 (PCR) (NotDetected) Coronavirus HKU1 (PCR) (NotDetected) Coronavirus 229E (PCR) (NotDetected) SARS-CoV-2 (PCR) (NotDetected) Coronavirus NL63 (PCR) (NotDetected) Human Metapneumovir PCR (NotDetected) Influenza Type A (PCR) (NotDetected) Influenza Type B (PCR) (NotDetected) M. pneumoniae (PCR) (NotDetected) Parainfluenza 1 (PCR) (NotDetected) Parainfluenza 2 (PCR) (NotDetected) Parainfluenza 3 (PCR) (NotDetected) Parainfluenza 4 (PCR) (NotDetected) RSV (PCR) (NotDetected) Entero/Rhino (PCR) (NotDetected) Administered Medications Fluticasone Propionate (Fluticasone Propionate Na Spr 16 Gm Btl) 2 sprays ECHO QPM [facility] Stop: 09/21/22 20:59 Last Admin: 08/22/22 20:15 Dose: 2 sprays Documented By: NABILA Sodium Bicarbonate 150 meq/ (Dextrose) 1,150 mls @ 75 mls/hr IV .[id number] [facility] Stop: 08/23/22 18:29 Last Admin: 08/23/22 05:17 Dose: 75 mls/hr Documented By: Infusion: 08/23/22 05:17 Dose: 75 mls/hr Documented By: Admin: 08/22/22 20:30 Dose: 75 mls/hr Documented By: NABILA Metoprolol Tartrate (Metoprolol Tartrate 25 Mg Tab) 25 mg PO BID [facility] Stop: 09/21/22 20:59 Last Admin: 08/23/22 08:34 Dose: 25 mg Documented By: Admin: 08/22/22 21:12 Dose: 25 mg Documented By: NABILA Miscellaneous (*Betamethasone*Order Awaiting Action) 1 each N/A QS [facility] Stop: 09/22/22 00:00 Last Admin: 08/23/22 08:33 Dose: Not Given Documented By: Admin: 08/23/22 00:16 Dose: Not Given Documented By: NABILA Powell (*Restasis*Order Awaiting Action) 1 each N/A QS [facility] Stop: 09/22/22 00:00 Last Admin: 08/23/22 08:33 Dose: Not Given Documented By: Admin: 08/23/22 00:16 Dose: Not Given Documented By: NABILA Powell (*Rivastigmine*Order Awaiting Action) 1 each N/A QS [facility] Stop: 09/22/22 00:00 Last Admin: 08/23/22 08:33 Dose: Not Given Documented By: Admin: 08/23/22 00:17 Dose: Not Given Documented By: NABILA Olanzapine (Olanzapine Zydis 5 Mg Orally Dis. Tab) 2.5 mg PO Q12 PRN PRN Reason: Agitation Stop: 09/21/22 17:25 Last Admin: 08/22/22 20:17 Dose: 2.5 mg Documented By: NABILA Quetiapine Fumarate (Quetiapine Fumarate 25 Mg Tablet) 25 mg PO [facility] Stop: 09/21/22 20:59 Last Admin: 08/22/22 20:16 Dose: 25 mg Documented By: NABILA Sertraline HCl (Sertraline Hcl 50 Mg Tablet) 25 mg PO [facility] Stop: 09/21/22 20:59 Last Admin: 08/22/22 20:16 Dose: 25 mg Documented By: NABILA Discontinued Medications Albuterol (Albuterol 0.083% Nebu Soln 3 Ml Vial) 10 mg NEB NOW STA; Protocol Stop: 08/22/22 11:58 Last Admin: 08/22/22 14:12 Dose: 10 mg Documented By: Dextrose (Dextrose 50% 50 Ml Syringe) 50 ml IV NOW ONE Stop: 08/22/22 11:58 Last Admin: 08/22/22 12:45 Dose: 50 ml Documented By: HOWARD Dextrose (Dextrose 50% 50 Ml Syringe) 50 ml IV NOW STA Stop: 08/22/22 11:58 Last Admin: 08/22/22 12:45 Dose: 50 ml Documented By: HOWARD Dextrose (Dextrose 50% 50 Ml Syringe) 50 ml IV NOW ONE Stop: 08/22/22 15:58 Last Admin: 08/22/22 16:04 Dose: 50 ml Documented By: MMZ Sodium Chloride (Nss 1000ml) 1,000 mls @ 999 mls/hr IV .Q1H1M [facility] Stop: 08/22/22 12:15 Last Infusion: 08/22/22 13:11 Dose: 0 mls/hr Documented By: Admin: 08/22/22 11:23 Dose: 999 mls/hr Documented By: SR Calcium Gluconate () 1,000 mg in 60 mls @ 240 mls/hr IV NOW STA Stop: 08/22/22 12:11 Last Infusion: 08/22/22 13:14 Dose: 0 mls/hr Documented By: Admin: 08/22/22 12:45 Dose: 240 mls/hr Documented By: KEYONW Sodium Chloride (Nss 1000ml) 1,000 mls @ 999 mls/hr IV .Q1H1M ONE Stop: 08/22/22 14:39 Last Infusion: 08/22/22 18:52 Dose: 0 mls/hr Documented By: Admin: 08/22/22 15:09 Dose: 999 mls/hr Documented By: SR Ceftriaxone Sodium (Rocephin) 2,000 mg in 70 mls @ 140 mls/hr IV NOW STA Stop: 08/22/22 14:27 Last Infusion: 08/22/22 16:09 Dose: 0 mls/hr Documented By: Admin: 08/22/22 15:08 Dose: 140 mls/hr Documented By: SR Calcium Gluconate 1,000 mg/ (Dextrose) 60 mls @ 240 mls/hr IV NOW ONE Stop: 08/22/22 17:06 Last Infusion: 08/22/22 18:52 Dose: 0 mls/hr Documented By: Admin: 08/22/22 18:00 Dose: 240 mls/hr Documented By: MMZ Sodium Bicarbonate 150 meq/ (Dextrose) 1,150 mls @ 999 mls/hr IV .Q1H10M [facility] Stop: 08/22/22 18:30 Last Infusion: 08/22/22 20:30 Dose: 0 mls/hr Documented By: Admin: 08/22/22 20:14 Dose: 999 mls/hr Documented By: BRA Insulin Human Regular (Novolin-R Insulin Per Unit Charge) 10 units IV NOW STA Stop: 08/22/22 11:58 Last Admin: 08/22/22 12:45 Dose: 10 units Documented By: HOWARD Co-signed By: THOR Olanzapine (Olanzapine 10 Mg/2.1 Ml Sdv) 5 mg IM NOW STA Stop: 08/22/22 13:39 Last Admin: 08/22/22 13:43 Dose: 5 mg Documented By: Olanzapine (Olanzapine 10 Mg/2.1 Ml Sdv) 2.5 mg IM NOW STA Stop: 08/22/22 20:47 Last Admin: 08/22/22 20:58 Dose: 2.5 mg Documented By: NABILA Imaging Data Radiologist's Impression: Chest X-Ray 08/22/22 11:07 XR chest 1V portable CLINICAL HISTORY: weakness COMPARISON STUDY: Chest radiograph December 03, 2021. FINDINGS: Lung volumes are normal. Lungs are clear. There is no pneumothorax or pleural effusion. Cardiac size is normal. Mediastinal contours are normal. There is no evidence for pulmonary edema. Mild interstitial thickening is unchanged and likely chronic IMPRESSION: No acute cardiopulmonary findings. No significant change in appearance of the chest. Interstitial thickening, likely chronic. ACT 112: Negative or not required by law. Electronically signed by: Yuval Arredondo M.D. 08/22/2022 11:[address] 08/22/22 11:07 CT OF THE HEAD WITHOUT CONTRAST CLINICAL HISTORY: Confusion. COMPARISON STUDY: Head CT December 03, 2021 and MRI of the brain June 21, 2017. TECHNIQUE: Helical axial images of the head were obtained without IV contrast. Automated exposure control was utilized for the study. A dose lowering technique was utilized adhering to the principles of ALARA. FINDINGS: No acute intracranial hemorrhage, midline shift or mass effect is present. The bladder hypodensity suggests small vessel disease. The appearance of brain is unchanged. The ventricular system is unremarkable. The basal cisterns are patent. No extra-axial collections are present. There are no findings to suggest acute dural sinus thrombosis or acute territorial infarct. No significant calvarial abnormalities are present. Visualized portions of the sinuses and mastoid air cells are clear. Multiple sites of venous gas are noted. IMPRESSION: No acute intracranial findings. ACT 112: Negative or not required by law. Electronically signed by: Yuval Arredondo M.D. 08/22/2022 1:32 PM Hip/Pelvis X-Ray 08/22/22 11:07 XR hips DASHAWN 1v w pelvis CLINICAL HISTORY: ?fall COMPARISON: Pelvis radiograph December 04, 2021. FINDINGS: Sacroiliac joints and symphysis pubis are intact. There is no acute fracture within the pelvis or hips. Hip joint spaces are preserved. IMPRESSION: No acute fracture within the pelvis or hips. ACT 112: Negative or not required by law. Electronically signed by: Yuval Arredondo M.D. 08/22/2022 11:42 AM Abdomen/Pelvis CT 08/22/22 11:59 CT OF THE ABDOMEN AND PELVIS WITHOUT CONTRAST CLINICAL HISTORY: Acute renal failure. COMPARISON STUDY: No previous studies for comparison. TECHNIQUE: Axial images of the abdomen and pelvis were obtained without IV cont rast. Images were reviewed in the axial, sagittal, and coronal planes. Automated exposure control was utilized for the study. A dose lowering technique was utilized adhering to the principles of ALARA. FINDINGS: Postoperative findings within the right breast are noted. This exam is mildly compromised by artifact. No pneumatosis, free air or portal venous gas is present. A 1.2 cm water attenuation lateral segment hepatic lesion favors a cyst. There is no biliary or pancreatic ductal dilatation dictation. Unenhanced images of the spleen, adrenal glands and pancreas are unremarkable. There is no hydronephrosis. No urinary calculi are present. There is trace bilateral perinephric stranding. There is no evidence for a bowel obstruction. No ascites or lymphadenopathy is present. There are no acute fractures within the visualized skeletal structures. Moderate plaque of the abdominal aorta and branch vessels is present. IMPRESSION: 1. No urinary calculi or hydronephrosis. Trace bilateral perinephric stranding which could be correlated with urinalysis. 2. No acute process within the abdomen or pelvis on unenhanced exam. Exam mildly compromised by artifact. 3. No bowel obstruction. ACT 112: Negative or not required by law. Electronically signed by: Yuval Arredondo M.D. 08/22/2022 1:38 PM Discharge Plan Visit Data Chief Complaint: Confusion Stated Complaint: AMS ED Provider: Chip Will Discharge Problem: Acute hyperkalemia, Dementia, Agitation, Acute dehydration, Acute renal failure (ARF) Patient Disposition: Admitted As Inpatient Discharge Instructions Interventions: ED Discharge Assessment Last Done: 08/22/22 17:44
[2022-08-22] MEDS ORDERED: SODIUM CHLORIDE 0.9% 1000ML 1,000 ML IV SCH (11:15)
[2022-08-22 11:27] LABS: Basophils # (auto) 0.04 K/uL (0-0.2); Basophils % (auto) 0.7 %; Eosinophils # (auto) 0.18 K/uL (0-0.50); Hematocrit (blood only) 29.2 % (34.1-44.9); Hemoglobin 9.7 g/dl (12.0-16.0); Immature Granulocytes # (auto) 0.03 K/uL (0.00-0.02); Immature Granulocytes % (auto) 0.5 %; Lymphocytes # (auto) 0.91 K/uL (1.2-3.4); Lymphocytes % (auto) 14.9 %; Mean Corpuscular Hemoglobin 31.3 pg (25.0-34.0); Mean Corpuscular Hgb Conc 33.2 g/dL (32.0-36.0); Mean Corpuscular Volume 94.2 fL (80.0-100.0); Mean Platelet Volume 10.5 fL (9.4-12.3); Monocytes # (auto) 0.59 K/uL (0.24-0.82); Monocytes % (auto) 9.7 %; Neutrophils # (auto) 4.34 K/uL (1.4-6.5); Neutrophils % (auto) 71.2 %; Platelet Count 207 K/uL (130-400); RDW Coefficient of Variation 13.8 % (11.5-14.5); RDW Standard Deviation 47.6 fL (36.4-46.3); White Blood Count 6.09 K/ul (4.8-10.8)
[2022-08-22 11:30] LABS: Appearance Urine Clear (Clear); Bacteria Urine Automated Negative (Negative); Bilirubin Urine Negative (Negative); Blood Urine Negative (Negative); Color Urine Yellow; Epithelial Cell Urine Auto >30 /lpf (0-5); Glucose Urine UA Negative (Negative); Ketones Urine Negative (Negative); Leukocyte Esterase Urine 3+ (Negative); Nitrite Urine Negative (Negative); Protein Urine Negative (Negative); RBC Urine Automated 0-4 /hpf (0-4); Specific Gravity Urine 1.014 (1.000-1.030); Urobilinogen Urine Negative (Negative); pH Urine 6.5 (4.5-7.5)
--- NOTE | 2022-08-22 11:42 | XRay Report ---
XR chest 1V portable CLINICAL HISTORY: weakness COMPARISON STUDY: Chest radiograph December 03, 2021. FINDINGS: Lung volumes are normal. Lungs are clear. There is no pneumothorax or pleural effusion. Car diac size is normal. Mediastinal contours are normal. There is no evidence for pulmonary edema. Mild interstitial thickening is unchanged and likely chronic IMPRESSION: No acute cardiopulmonary findings. No significant change in appearance of the chest. Int erstitial thickening, likely chronic. ACT 112: Negative or not required by law. Electronically signed by: Yuval Arredondo M.D. 08/22/2022 11:41 AM
--- NOTE | 2022-08-22 11:43 | XRay Report ---
XR hips DASHAWN 1v w pelvis CLINICAL HISTORY: ?fall COMPARISON: Pelvis radiograph December 04, 2021. FINDINGS: Sacroiliac joints and symphysis pubis are intact. There is no acute fracture within the pe lvis or hips. Hip joint spaces are preserved. IMPRESSION: No acute fracture within the pelvis or hips. ACT 112: Negative or not required by law. Electronically signed by: Yuval Arredondo M.D. 08/22/2022 11:42 AM
[2022-08-22 11:44] LABS: Renal Epithelial Cells Urine 0-5 /lpf (0-5)
[2022-08-22 11:50] LABS: Albumin Globulin Ratio 1.1 (0.9-2); Albumin Level 3.8 gm/dl (3.4-5.0); BUN Creatinine Ratio 20.6 (10-20); Bilirubin,Total 0.3 mg/dl (0.2-1.0); Calcium 9.6 mg/dl (8.5-10.1); Creatinine Clr Calc Pharmacy 11.2 ml/min; Est GFR (African American) 13.7 ml/min; Est GFR (Non-African American) 11.9 ml/min; Globulin 3.5 gm/dl (2.5-4.0); Potassium 6.7 mmol/L (3.5-5.1); Total Protein 7.3 gm/dl (6.0-8.3); Troponin I High Sensitivity 2.9 pg/ml (0-14)
[2022-08-22] MEDS ORDERED: DEXTROSE 50% 50 ML SYRINGE IV STA (11:57)
[2022-08-22] MEDS ORDERED: ALBUTEROL 0.083% NEBU SOLN 3 ML VIAL NEB STA (11:57)
[2022-08-22] MEDS ORDERED: NovoLIN-R INSULIN PER UNIT CHARGE IV STA (11:57)
[2022-08-22] MEDS ORDERED: CALCIUM GLUCONATE 1,000 MG/60 ML BAG IV STA (11:57)
[2022-08-22] MEDS ORDERED: DEXTROSE 50% 50 ML SYRINGE IV ONE ×2 (11:57→15:57)
[2022-08-22 12:30] LABS: Adenovirus PCR Not Detected (NotDetected); Bordetella parapertussis PCR Not Detected (NotDetected); Bordetella pertussis PCR Not Detected (NotDetected); Chlamydia pneumoniae PCR Not Detected (NotDetected); Coronavirus 229E PCR Not Detected (NotDetected); Coronavirus CoV-2 (COVID19)PCR Not Detected (NotDetected); Coronavirus HKU1 PCR Not Detected (NotDetected); Coronavirus NL63 PCR Not Detected (NotDetected); Coronavirus OC43PCR Not Detected (NotDetected); Human Metapneumovirus PCR Not Detected (NotDetected); Influenza A PCR Not Detected (NotDetected); Influenza B PCR Not Detected (NotDetected); Mycoplasma pneumoniae PCR Not Detected (NotDetected); Parainfluenza Virus 1 PCR Not Detected (NotDetected); Parainfluenza Virus 2 PCR Not Detected (NotDetected); Parainfluenza Virus 3 PCR Not Detected (NotDetected); Parainfluenza Virus 4 PCR Not Detected (NotDetected); Respiratory Syncytial VirusPCR Not Detected (NotDetected); Rhinovirus/Enterovirus PCR Not Detected (NotDetected)
--- NOTE | 2022-08-22 13:34 | CT Scan Report ---
CT OF THE HEAD WITHOUT CONTRAST CLINICAL HISTORY: Confusion. COMPARISON STUDY: Head CT December 03, 2021 and MRI of the brain June 21, 2017. TECHNIQUE: Helical axial images of the head were obtained without IV contrast. Automated exposure con trol was utilized for the study. A dose lowering technique was utilized adhering to the principles o f ALARA. FINDINGS: No acute intracranial hemorrhage, midline shift or mass effect is present. The bladder hypo density suggests small vessel disease. The appearance of brain is unchanged. The ventricular system i s unremarkable. The basal cisterns are patent. No extra-axial collections are present. There are no f indings to suggest acute dural sinus thrombosis or acute territorial infarct. No significant calvaria l abnormalities are present. Visualized portions of the sinuses and mastoid air cells are clear. Mult iple sites of venous gas are noted. IMPRESSION: No acute intracranial findings. ACT 112: Negative or not required by law. Electronically signed by: Yuval Arredondo M.D. 08/22/2022 1:32 PM
[2022-08-22] MEDS ORDERED: OLANZapine 10 MG/2.1 ML SDV IM STA ×2 (13:38→20:46)
[2022-08-22] MEDS ORDERED: SODIUM CHLORIDE 0.9% 1000ML 1,000 ML IV ONE (13:39)
--- NOTE | 2022-08-22 13:40 | CT Scan Report ---
CT OF THE ABDOMEN AND PELVIS WITHOUT CONTRAST CLINICAL HISTORY: Acute renal failure. COMPARISON STUDY: No previous studies for comparison. TECHNIQUE: Axial images of the abdomen and pelvis were obtained without IV contrast. Images were revi ewed in the axial, sagittal, and coronal planes. Automated exposure control was utilized for the chon dy. A dose lowering technique was utilized adhering to the principles of ALARA. FINDINGS: Postoperative findings within the right breast are noted. This exam is mildly compromised b y artifact. No pneumatosis, free air or portal venous gas is present. A 1.2 cm water attenuation late ral segment hepatic lesion favors a cyst. There is no biliary or pancreatic ductal dilatation dictati on. Unenhanced images of the spleen, adrenal glands and pancreas are unremarkable. There is no hydron ephrosis. No urinary calculi are present. There is trace bilateral perinephric stranding. There is no evidence for a bowel obstruction. No ascites or lymphadenopathy is present. There are no acute fract ures within the visualized skeletal structures. Moderate plaque of the abdominal aorta and branch ves sels is present. IMPRESSION: 1. No urinary calculi or hydronephrosis. Trace bilateral perinephric stranding which could be correla deanne with urinalysis. 2. No acute process within the abdomen or pelvis on unenhanced exam. Exam mildly compromised by artif act. 3. No bowel obstruction. ACT 112: Negative or not required by law. Electronically signed by: Yuval Arredondo M.D. 08/22/2022 1:38 PM
[2022-08-22] MEDS ORDERED: cefTRIAXone SODIUM 2,000 MG/70 ML BAG IV STA (13:58)
--- NOTE | 2022-08-22 14:54 | History & Physical Report ---
Date of Service August 22, 2022 Assessment & Plan (1) Acute kidney injury: (2) Dementia: (3) HTN (hypertension): (4) GERD (gastroesophageal reflux disease): (5) Depression: Plan 77-year-old presents from long-term retirement with altered mental status. Potassium 6.7, creatinine 3.54. Baseline creatinine from -1.[address] on HCO3 gtt as recommended by Nephrology. Acute kidney injury: Dehydration: Abdominal CT negative Creatinine 6.7; received 10 units insulin, 2 g calcium gluconate and dextrose x2; repeat BMP creatinine 5.7; additional 1 g calcium ordered Baseline creatinine per resident's home 02/22/2022 creatinine 1.20, K+ 4.6 baseline hold all nephrotoxic medications Q6 BMP; recheck at 2300 Nephrology consult placed; D5W + HCO3 150mEq 500mL bolus followed by 75mL/hour x 10 hours. Dementia with behavioral disturbance: Per resident home overall decline since January both cognitively and functionally Patient is able to ambulate and eat independently at baseline, but unsure on in take Resident home indicates patient is becoming more incontinent and having decreased oral intake Fast score up to 6c Takes rivastigmine; continue Takes Seroquel nightly related to behavioral disturbance; consider increasing dose based on her progression HTN: Takes Metoprolol and Lisinopril; hold Lisinopril for now as nephrotoxic GERD: Takes Omeprazole; continue Depression: Takes Sertraline; continue Disposition: PCP: Janet Zuluaga/Dr. Kendrick CODE STATUS: DNR/DNI Next of Kin: Shannon Christianson (niece) [phone] VTE prophylaxis: Teds and SCDs for now I personally was able to review all current laboratory work and diagnostic images obtained in the ED. Additionally, I was able to review the patients past medication reconciliation and history with direct visualization in the patients chart. Plan of care was collaborated with Dr. Schmitz. Please see her addendum for further details. History of Present Illness Chief Complaint: Confusion Primary Care Provider: JUANA KENDRICK Ms. Ortega is a 77-year-old female that was transferred to [facility] from [facility] after experiencing some altered mental status that was noticed by staff. It is unclear whether or not she had a fall. Additional past medical history includes HTN, HLD, senile degeneration of the brain, and ductal carcinoma in situ of breast. In the ED, K+ was 6.7, creatinine 3.54 (baseline in [facility] from a few years ago 1.2-1.3). Patient received 10 units insulin, dextrose x2 and 2 g IV calcium gluconate. Head CT was negative, chest x-ray negative, hip/pelvic CT negative, abdominal CT without SBO and otherwise unremarkable. Patient quite restless in the ED received 1 dose IM Zyprexa prior to admission and was placed on soft mitt restraints as she was causing self-harm by pulling out multiple IVs. Patient sister is at bedside at the moment and I was able to speak with her. Additionally I was able to speak with the residents home health clinician Janay who stated that at baseline the patient is ambulatory however has declined both cognitively and functionally over the last 6 months. She does eat independently but overall intake has been decreased. She has become more incontinent of urine lately. Patient does look at me when her name is spoken however is not able to participate in any meaningful conversation including decision making or CODE STATUS. Patient's POA/brother just had a stroke and is currently inpatient at the [facility] and POA has been transitioned to the patients nieceShannon ([phone]) .who I was able to speak with on the phone. She stated that over the last 6 months she has generally declined. She does think that she has a living well but is going to look for it tomorrow. She stated that patient would not want her aerobic measures taken in the event of cardiac or respiratory arrest; will reflect DNR/DNI. Repeat BNP shows downward trend of potassium 5.7, creatinine 3.20. Will administer an additional gram of calcium gluconate. Discussed on the phone with nephrology who suggested a HCO3 drip with a 500 mL bolus followed by maintenance of 75 mL/h until the morning. Will recheck BMP at 2300. Anticipate that MYKEL is related to dehydration due to over all progression of dementia. Patient will be admitted for further evaluation and management. PLease see A/P for further details. Allergies Allergy/AdvReac Type Severity Reaction Status Date / Time No Known Allergies Allergy Verified 08/22/22 15:35 Home Medications Medication Instructions Recorded Confirmed Type aspirin 81 mg tablet,delayed 81 mg PO DAILY 06/08/19 08/22/22 History release cholecalciferol (vitamin D3) 25 1,000 units PO DAILY 06/08/19 08/22/22 History mcg (1,000 unit) capsule lisinopril 40 mg tablet 40 mg PO DAILY #90 tabs 06/08/19 08/22/22 History atorvastatin 40 mg tablet 40 mg PO DAILY 04/01/20 08/22/22 History calcium carbonate 600 mg calcium 300 mg PO TID 04/01/20 08/22/22 History (1,500 mg) tablet cyclosporine 0.05 % eye drops 1 drops ophthalmic (eye) Q12H 04/01/20 08/22/22 History (Restasis MultiDose) fluticasone propionate 50 2 sprays intranasal QPM 04/01/20 08/22/22 History mcg/actuation nasal spray,suspension (Flonase Allergy Relief) sertraline 25 mg tablet 25 mg PO HS 04/01/20 08/22/22 History [id number] C-Mn 500 2 cap PO DAILY 05/31/21 08/22/22 History mg-400 mg capsule saliva substitute combo no.9 1 ea mucous membrane BID 05/31/21 08/22/22 History (Biotene Dry Mouth Oral Rinse mouthwash) metoprolol tartrate 50 mg tablet 25 mg PO BID 06/05/21 08/22/22 History ketoconazole 2 % shampoo 1 applic topical .COMPLEX #120 mL 08/11/21 08/22/22 Rx rivastigmine 4.6 mg/24 hour 4.6 mg transdermal DAILY #30 ea 11/17/21 08/22/22 Rx transdermal patch quetiapine 25 mg tablet 25 mg PO HS 12/03/21 08/22/22 History betamethasone dipropionate 0.05 % 1 applic topical DAILY #60 mL 06/01/22 08/22/22 Rx lotion acetaminophen 325 mg tablet 650 mg PO Q6 PRN Fever Or Pain 08/22/22 08/22/22 History food supplemt, lactose-reduced 1 - 2 ea PO DAILY 08/22/22 08/22/22 History guaifenesin 600 mg tablet, 600 mg PO BID PRN cough/congestion 08/22/22 08/22/22 History extended release 12 hr (Mucinex) multivitamin (Daily-Marleny tablet) 1 tab PO DAILY 08/22/22 08/22/22 History omega-3 fatty acids 500 mg capsule 1,000 mg PO QAM 08/22/22 08/22/22 History omeprazole 20 mg capsule,delayed 20 mg PO DAILY 08/22/22 08/22/22 History release Past Med/Surg History Medical History Acute kidney injury 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) Dementia Depression GERD (gastroesophageal reflux disease) HTN (hypertension) Hypertension Mixed dyslipidemia Vertigo Surgical History History of cataract surgery Family History Mother Aortic aneurysm, ruptured Breast cancer Skin cancer Pancreatic cancer Father Lung cancer Social History Smoking Status: Former smoker Preferred Language: Sami Communication Ability: Impaired Gate Watchman Required: No Beliefs That Will Affect Care: None Current Living Situation: Personal Care Facility Feels Safe at Home: Yes Review of Systems Review of Systems: Unobtainable due to cognitive status Physical Exam Physical Exam: Neuro: AAOx1, PERRLA, no aphagia, memory changes, CNII-XII grossly intact HEENT: head normocephalic, moist mucus membranes CV: S1/S2, (-) M/G/R, (-) edema, cap refill < 3 seconds Resp: Lungs CTA in all sheets. On RA GI: Abdomen S/NT/ND, Ax4 bowel sounds, (-) CVA tenderness Musculoskeletal: Does not follow those commands Skin: (-) rashes , (-) erythema. Psych: euthymic mood Results & Data Results & Data ([facility]) Vital Signs (Past 12 Hours) Vital Signs Temp Pulse Pulse Resp BP BP Pulse Ox 08/22/22 14:46 82 18 115/57 L 98 08/22/22 13:00 98 08/22/22 13:00 96/48 L 08/22/22 12:59 100 08/22/22 12:57 90/39 L 08/22/22 11:48 24 08/22/22 11:30 61 25 H 100 08/22/22 11:00 58 L 14 99 08/22/22 10:54 60 30 H 96 08/22/22 10:54 128/54 L 08/22/22 10:49 56 L 25 H 99 08/22/22 11:07 56 L 18 100 08/22/22 10:49 18 08/22/22 10:49 08/22/22 10:49 36.7 C 56 L 18 128/54 L 100 O2 Del Method O2 Flow Rate 08/22/22 14:46 Room Air 08/22/22 13:00 08/22/22 13:00 08/22/22 12:59 08/22/22 12:57 08/22/22 11:48 08/22/22 11:30 08/22/22 11:00 08/22/22 10:54 08/22/22 10:54 08/22/22 10:49 08/22/22 11:07 Room Air 08/22/22 10:49 08/22/22 10:49 Room Air 0 08/22/22 10:49 Room Air Laboratory Results Short CBC 08/22/22 Range/Units 10:55 WBC 6.09 (4.8-10.8) K/ul Hgb 9.7 L (12.0-16.0) g/dl Hct 29.2 L (34.1-44.9) % Plt Count 207 (130-400) K/uL BMP 08/22/22 10:55 Sodium 135 L Potassium 6.7 H* Chloride 110 H Carbon Dioxide 17 L BUN 73 H Creatinine 3.54 H Glucose 125 H Calcium 9.6 Liver Function 08/22/22 Range/Units 10:55 Total Bilirubin 0.3 (0.2-1.0) mg/dl AST 18 (13-39) U/L ALT 13 (7-52) U/L Alkaline Phosphatase 80 (34-104) U/L Albumin 3.8 (3.4-5.0) gm/dl Urine 08/22/22 Range/Units 11:10 Urine Color Yellow Urine Appearance Clear (Clear) Urine pH 6.5 (4.5-7.5) Ur Specific [place] 1.014 (1.000-1.030) Urine Protein Negative (Negative) Urine Glucose (UA) Negative (Negative) Diagnostic Findings Chest X-Ray 08/22/22 11:07 XR chest 1V portable CLINICAL HISTORY: weakness COMPARISON STUDY: Chest radiograph December 03, 2021. FINDINGS: Lung volumes are normal. Lungs are clear. There is no pneumothorax or pleural effusion. Cardiac size is normal. Mediastinal contours are normal. There is no evidence for pulmonary edema. Mild interstitial thickening is unchanged and likely chronic IMPRESSION: No acute cardiopulmonary findings. No significant change in appearance of the chest. Interstitial thickening, likely chronic. ACT 112: Negative or not required by law. Electronically signed by: Yuval Arredondo M.D. 08/22/2022 11:[address] 08/22/22 11:07 CT OF THE HEAD WITHOUT CONTRAST CLINICAL HISTORY: Confusion. COMPARISON STUDY: Head CT December 03, 2021 and MRI of the brain June 21, 2017. TECHNIQUE: Helical axial images of the head were obtained without IV contrast. Automated exposure control was utilized for the study. A dose lowering technique was utilized adhering to the principles of ALARA. FINDINGS: No acute intracranial hemorrhage, midline shift or mass effect is present. The bladder hypodensity suggests small vessel disease. The appearance of brain is unchanged. The ventricular system is unremarkable. The basal cisterns are patent. No extra-axial collections are present. There are no findings to suggest acute dural sinus thrombosis or acute territorial infarct. No significant calvarial abnormalities are present. Visualized portions of the sinuses and mastoid air cells are clear. Multiple sites of venous gas are noted. IMPRESSION: No acute intracranial findings. ACT 112: Negative or not required by law. Electronically signed by: Yuval Arredondo M.D. 08/22/2022 1:32 PM Hip/Pelvis X-Ray 08/22/22 11:07 XR hips DASHAWN 1v w pelvis CLINICAL HISTORY: ?fall COMPARISON: Pelvis radiograph December 04, 2021. FINDINGS: Sacroiliac joints and symphysis pubis are intact. There is no acute fracture within the pelvis or hips. Hip joint spaces are preserved. IMPRESSION: No acute fracture within the pelvis or hips. ACT 112: Negative or not required by law. Electronically signed by: Yuval Arredondo M.D. 08/22/2022 11:42 AM Abdomen/Pelvis CT 08/22/22 11:59 CT OF THE ABDOMEN AND PELVIS WITHOUT CONTRAST CLINICAL HISTORY: Acute renal failure. COMPARISON STUDY: No previous studies for comparison. TECHNIQUE: Axial images of the abdomen and pelvis were obtained without IV contrast. Images were reviewed in the axial, sagittal, and coronal planes. Automated exposure control was utilized for the study. A dose lowering te chnique was utilized adhering to the principles of ALARA. FINDINGS: Postoperative findings within the right breast are noted. This exam is mildly compromised by artifact. No pneumatosis, free air or portal venous gas is present. A 1.2 cm water attenuation lateral segment hepatic lesion favors a cyst. There is no biliary or pancreatic ductal dilatation dictation. Unenhanced images of the spleen, adrenal glands and pancreas are unremarkable. There is no hydronephrosis. No urinary calculi are present. There is trace bilateral perinephric stranding. There is no evidence for a bowel obstruction. No ascites or lymphadenopathy is present. There are no acute fractures within the visualized skeletal structures. Moderate plaque of the abdominal aorta and branch vessels is present. IMPRESSION: 1. No urinary calculi or hydronephrosis. Trace bilateral perinephric stranding which could be correlated with urinalysis. 2. No acute process within the abdomen or pelvis on unenhanced exam. Exam mildly compromised by artifact. 3. No bowel obstruction. ACT 112: Negative or not required by law. Electronically signed by: Yuval Arredondo M.D. 08/22/2022 1:38 PM Code Status & VTE Plan Code Status DNR/DNI in the event of cardiac or respiratory arrest VTE Prophylaxis Plan VTE Prophylaxis will be ordered: Yes Supervising Physician Co-Signing Physician Notes The patient is 77-year-old female who is a transfer from [facility] after experiencing altered mental status. It appears from the history that she had a gradual decline. Sister at the bedside says that she had her to her home for Thanksgiving and she was not oriented to place or time and frequently required a repeat of each conversation because her short-term memory was impaired. It is not clear if she has been eating or not. She arrived with a potassium of 6.7 and a creatinine of 3.54. She received insulin, dextrose and calcium for treatment of hyperkalemia. As a result of insulin she became hypoglycemic with a glucose of 37; this was treated and improved to 138. Repeat potassium was 5.7. For the kidney dysfunction she received IV fluids. She was combative and removing medical devices so was placed on restraints and given olanzapine. This worked temporarily. She was continually placed on mitts for restraint in the ER which were somewhat unsuccessful as she could remove them fairly easily. On physical exam she was intermittently able to follow instructions and was oriented to self only. She did not understand where she was nor did she know the year. She could not reiterate where she lived. She was in no acute distress but would focus and fixate on doing something such as getting her mitts off. Cardiac exam revealed S1-S2 with no murmurs gallops or rubs. She had no evidence of peripheral edema and was clinically euvolemic. Lungs were clear to auscultation bilaterally. She had a abdomen that was soft nontender nondistended. She had no gross focal deficits from a neurologic or muscular standpoint. Skin was warm and dry. Work-up in the ER revealed a CBC with normal white blood cell count and a H&H of 9.7/29.2. This is down from December H&H of 11.8/35.1. Platelets were within normal limits. BMP revealed a sodium of 135, potassium 6.7, chloride of 110, bicarb of 17, normal anion gap of 8, BUN of 73, creatinine 3.54. Respiratory viral panel was negative. Imaging including a chest x-ray revealed no acute cardiopulmonary findings. A CT of the head without contrast was normal. A bilateral hip x-ray revealed no acute fracture in the pelvis or hips and a CT abdomen pelvis without contrast revealed trace bilateral perinephric stranding with no acute process in the abdomen or pelvis on unenhanced exam. No evidence of bowel obstruction was present. An EKG revealed sinus bradycardia with no ST changes to indicate ischemia. Overall this is 77-year-old female with dementia that has progressed who presents with acute metabolic encephalopathy secondary to acute renal failure with electrolyte changes. Hyperkalemia was treated in the ER and is 5.7. Nephrology was consulted and is now instituting us bicarb drip overnight. We will hold her lisinopril. We will ensure a low potassium diet is given. Overall her baseline potassium from record review reveals 4.9-5, so she is high normal at base. We will need to perform a bedside swallow study to ensure she can safely rehydrate by mouth. Urine studies are pending. Urinalysis reveals 3+ leuk esterase with 10-30 white blood cells per high-power field, however this appears to be a contaminated sample. Given her clinical picture of confusion and evidence of perinephric stranding on CT, will continue Rocephin for possible UTI (started in ER) pending clinical improvement and urine culture results. She has dementia and is on quetiapine (antipsychotic) at baseline. Would continue that along with olanzapine for breakthrough delirium/agitation for now along with soft restraints PRN. Sitter is at the bedside. I was able to explain the situation to the sister who was at bedside and all questions were answered. Cont plan as outlined above . Nadir, DO
[2022-08-22] MEDS ORDERED: MAGNESIUM HYDROXIDE SUSP 30 ML UDC PO PRN (14:57)
[2022-08-22] MEDS ORDERED: POLYETHYLENE (MIRALAX) 17 GM PACK PO PRN (14:57)
[2022-08-22] MEDS ORDERED: ACETAMINOPHEN 325 MG TAB PO PRN (14:57)
[2022-08-22] MEDS ORDERED: ONDANSETRON INJ 2 MG/ML 2 ML VIAL IV PRN (14:57)
[2022-08-22] MEDS ORDERED: ALUMINUM/MAGNESIUM SUSP 30 ML UDC PO PRN (14:57)
[2022-08-22 16:00] LABS: BUN Creatinine Ratio 23.1 (10-20); Calcium 9.4 mg/dl (8.5-10.1); Creatinine Clr Calc Pharmacy 12.4 ml/min; Est GFR (African American) 15.5 ml/min; Est GFR (Non-African American) 13.4 ml/min; Potassium 5.7 mmol/L (3.5-5.1)
[2022-08-22] MEDS ORDERED: CALCIUM GLUCONATE 10% 1,000 MG in DEXTROSE 5% 50 ML IV ONE (16:52)
[2022-08-22] MEDS ORDERED: STAT IV STA ×3 (16:52→17:58)
[2022-08-22] MEDS ORDERED: SODIUM ZIRCONIUM CYCLOSILICATE 10 GM PACKET PO ONE (16:59)
[2022-08-22] MEDS ORDERED: SODIUM BICARBONATE 8.4% 150 MEQ in DEXTROSE 5% 1,000 ML IV SCH (18:00)
[2022-08-22] MEDS: FLUTICASONE PROPIONATE NA SPR 16 GM BTL NAE SCH (20:15)
[2022-08-22] MEDS: SERTRALINE HCL 50 MG TABLET PO SCH (20:16)
[2022-08-22] MEDS: QUEtiapine FUMARATE 25 MG TABLET PO SCH (20:16)
[2022-08-22] MEDS: OLANZapine ZYDIS 5 MG ORALLY DIS. TAB PO PRN (20:17)
[2022-08-22] MEDS: SODIUM BICARBONATE 8.4% 150 MEQ in DEXTROSE 5% 1,000 ML IV SCH (20:30)
[2022-08-22] MEDS: METOPROLOL TARTRATE 25 MG TAB PO SCH (21:12)
[2022-08-23 00:11] LABS: Creatinine Urine Random 83.1 mg/dl; Protein Creatinine Ratio Urine 0.3 (0-0.2); Total Protein Urine Random 22.9 mg/dl (0-11.9)
[2022-08-23] MEDS: *RESTASIS*ORDER AWAITING ACTION SCH ×3 (00:16→15:14)
[2022-08-23 00:22] LABS: BUN Creatinine Ratio 22.4 (10-20); Calcium 9.4 mg/dl (8.5-10.1); Creatinine Clr Calc Pharmacy 14.6 ml/min; Est GFR (African American) 18.9 ml/min; Est GFR (Non-African American) 16.3 ml/min; Potassium 4.7 mmol/L (3.5-5.1)
[2022-08-23 05:11] LABS: Hematocrit (blood only) 28.5 % (34.1-44.9); Hemoglobin 9.7 g/dl (12.0-16.0); Mean Corpuscular Volume 91.1 fL (80.0-100.0); Mean Platelet Volume 10.1 fL (9.4-12.3); Platelet Count 201 K/uL (130-400); RDW Coefficient of Variation 13.4 % (11.5-14.5); Red Blood Count 3.13 M/uL (3.93-5.22); White Blood Count 6.85 K/ul (4.8-10.8)
[2022-08-23] MEDS: SODIUM BICARBONATE 8.4% 150 MEQ in DEXTROSE 5% 1,000 ML IV SCH (05:17)
--- NOTE | 2022-08-23 05:37 | Electrocardiogram Report ---
Test Reason : Blood Pressure : / mmHG Vent. Rate : 059 BPM Atrial Rate : 059 BPM P-R Int : 164 ms QRS Dur : 086 ms QT Int : 384 ms P-R-T Axes : 063 047 064 degrees QTc Int : 380 ms Poor data quality, interpretation may be adversely affected Sinus bradycardia Otherwise normal ECG When compared with ECG of 03-DEC-2021 11:47, No significant change was found Confirmed by Arnulfo Olvera ([id number]) on 08/23/2022 5:36:34 AM Referred By: Confirmed By:Arnulfo Olvera
[2022-08-23 05:43] LABS: BUN Creatinine Ratio 21.4 (10-20); Calcium 9.4 mg/dl (8.5-10.1); Est GFR (African American) 21.1 ml/min; Est GFR (Non-African American) 18.2 ml/min; Phosphorus 3.4 mg/dl (2.5-4.9); Potassium 4.6 mmol/L (3.5-5.1)
[2022-08-23] MEDS: METOPROLOL TARTRATE 25 MG TAB PO SCH (08:34)
--- NOTE | 2022-08-23 08:40 | Nephrology Consultation ---
Date of Consultation August 23, 2022 Assessment & Plan (1) Acute renal failure (ARF): improving prerenal nonoliguric Stage 2 MYKEL on CKD 3B; baseline creatinine 1.2 as of January 2022; presented w/ creatinine 3.5 will change IVF to D51/2 NS and monitor cont to hold ACEI daily bmp reasonable from neph standpoint to d/c hull (2) Hyperkalemia: resolved w/ medical therapy cont to hold acei for now removed low K parameters from diet order History of Present Illness Reason for Consultation: mykel, K 6.7 Requesting Physician: Dr Schmitz Attending Physician: Phillip Jacques MD History of Present Illness 77 y/o F whom I'm asked to see for MYKEL and K 6.7 was admitted yesterday for MYKEL and hyperkalemia in the setting of altered mental status. PMH includes dementia which has progressed significantly since January 2022, CKD 3B, HTN, GERD, HL. She is a resident at [facility]. Presenting creatinine was 3.5 w/ K 6.7. She received IV insulin on presentation 10 units and NS. F/U labs w/ creatinine 3.2 and K 5.7. Her OP lisinopril was held. I reviewed admission profile w/ team and we bolused her then started standing bicarb gtt. This AM the K is 4.6, creat 2.5. Allergies Allergy/AdvReac Type Severity Reaction Status Date / Time No Known Allergies Allergy Verified 08/22/22 15:35 Home Medications Medication Instructions Recorded Confirmed Type aspirin 81 mg tablet,delayed 81 mg PO DAILY 06/08/19 08/22/22 History release cholecalciferol (vitamin D3) 25 1,000 units PO DAILY 06/08/19 08/22/22 History mcg (1,000 unit) capsule lisinopril 40 mg tablet 40 mg PO DAILY #90 tabs 06/08/19 08/22/22 History atorvastatin 40 mg tablet 40 mg PO DAILY 04/01/20 08/22/22 History calcium carbonate 600 mg calcium 300 mg PO TID 04/01/20 08/22/22 History (1,500 mg) tablet cyclosporine 0.05 % eye drops 1 drops ophthalmic (eye) Q12H 04/01/20 08/22/22 History (Restasis MultiDose) fluticasone propionate 50 2 sprays intranasal QPM 04/01/20 08/22/22 History mcg/actuation nasal spray,suspension (Flonase Allergy Relief) sertraline 25 mg tablet 25 mg PO HS 04/01/20 08/22/22 History [id number]-[id number]-ykn C-Mn 500 2 cap PO DAILY 05/31/21 08/22/22 History mg-400 mg capsule saliva substitute combo no.9 1 ea mucous membrane BID 05/31/21 08/22/22 History (Biotene Dry Mouth Oral Rinse mouthwash) metoprolol tartrate 50 mg tablet 25 mg PO BID 06/05/21 08/22/22 History ketoconazole 2 % shampoo 1 applic topical .COMPLEX #120 mL 08/11/21 08/22/22 Rx rivastigmine 4.6 mg/24 hour 4.6 mg transdermal DAILY #30 ea 11/17/21 08/22/22 Rx transdermal patch quetiapine 25 mg tablet 25 mg PO HS 12/03/21 08/22/22 History betamethasone dipropionate 0.05 % 1 applic topical DAILY #60 mL 06/01/22 08/22/22 Rx lotion acetaminophen 325 mg tablet 650 mg PO Q6 PRN Fever Or Pain 08/22/22 08/22/22 History food supplemt, lactose-reduced 1 - 2 ea PO DAILY 08/22/22 08/22/22 History guaifenesin 600 mg tablet, 600 mg PO BID PRN cough/congestion 08/22/22 08/22/22 History extended release 12 hr (Mucinex) multivitamin (Daily-Marleny tablet) 1 tab PO DAILY 08/22/22 08/22/22 History omega-3 fatty acids 500 mg capsule 1,000 mg PO QAM 08/22/22 08/22/22 History omeprazole 20 mg capsule,delayed 20 mg PO DAILY 08/22/22 08/22/22 History release Patient History Medical History Acute kidney injury 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) CKD (chronic kidney disease) stage 3, GFR 30-59 ml/min Dementia Depression GERD (gastroesophageal reflux disease) HTN (hypertension) Hypertension Mixed dyslipidemia Vertigo Surgical History History of cataract surgery Family History Mother Aortic aneurysm, ruptured Breast cancer Skin cancer Pancreatic cancer Father Lung cancer Social History Smoking Status: Former smoker Preferred Language: [place] Communication Ability: Unable Parts Clerk Required: No Beliefs That Will Affect Care: None Current Living Situation: Personal Care Facility Feels Safe at Home: Yes Assistive Devices: None Review of Systems Review of Systems: Unobtainable due to cognitive status Physical Exam Constitutional: well developed, well nourished, + frail appearing and comfortable; no acute distress Eyes: EOM intact bilaterally ENMT: Ears: + hearing impairment; no external ear abnormality Nose: no external nose abnormality Mouth: + dry oral mucous membranes Neck: no nuchal rigidity Respiratory: normal respiratory effort Auscultation: + diminished lung sounds Cardiovascular: Rate/Rhythm: regular rate and regular rhythm Extremities: no edema Gastrointestinal (Abdomen): Inspection/Auscultation: normal bowel sounds Percussion/Palpation: abdomen soft; abdomen nontender Musculoskeletal: Extremities: strength 5/5 throughout Skin: no rashes, warm and dry Neurologic: mishra, appropriate but very limited speech, no tremor Psychiatric: Orientation: oriented to person; + not oriented to place and + not oriented to time Insight: + poor insight Judgement: + poor judgement Genitourinary: hull w/ ample light urine Results & Data ([facility]) Vital Signs (Past 12 Hours) Vital Signs Temp Pulse Resp BP Pulse Ox O2 Del Method 08/23/22 04:00 36.6 C 89 18 126/84 99 Room Air 08/23/22 00:00 37.2 C 113 H 16 110/88 100 Room Air Laboratory Results 08/23/22 04:45 08/23/22 04:45 UA reviewed > inflamed but no bacteria, ketones, dipstick protein, blood
[2022-08-23] MEDS: D5W AND 1/2NSS 1,000 ML IV SCH ×2 (09:02→20:17)
--- NOTE | 2022-08-23 10:41 | Hospitalist Progress Note ---
Date of Service August 23, 2022 Assessment & Plan (1) Acute kidney injury: (2) Dementia: (3) HTN (hypertension): (4) GERD (gastroesophageal reflux disease): (5) Depression: Plan 77-year-old presents from long-term retirement with altered mental status. Potassium 6.7, creatinine 3.54. Baseline creatinine from -. nephrology consult. Will place on HCO3 gtt as recommended by Nephrology. Pre-Renal Acute kidney injury: Hyperkalemia Dehydration: Presented from long-term retirement with altered mental status. Creatinine found to be 3.5. Baseline creatinine of 1.2 in January. Potassium was 6.7 on admission; received calcium gluconate and insulin. FENa of 0.9% suggestive of prerenal cause Creatinine down trended with IV hydration Urine output of 2 L. Potassium normalized Plan; -Nephrology on board; recommend fluid to be changed from bicarb drip to D5 half NS -Continue to hold YOU -Avoid nephrotoxic agent -Daily BMP Possible urinary tract infection Urinalysis shows 3+ leukocyte esterase, WBC count of 10-30 Urinalysis culture pending Continue on ceftriaxone for now Dementia with behavioral disturbance: Per resident home overall decline since January both cognitively and functionally Patient is able to ambulate and eat independently at baseline, but unsure on intake Resident home indicates patient is becoming more incontinent and having decreased oral intake Takes rivastigmine; continue Takes Seroquel nightly related to behavioral disturbance; consider increasing dose based on her progression Monitor calorie intake HTN: Takes Metoprolol and Lisinopril; hold Lisinopril given MYKEL. GERD: Takes Omeprazole; continue Depression: Takes Sertraline; continue Disposition: PCP: Janet Zuluaga/Dr. Kendrick CODE STATUS: DNR/DNI Next of Kin: Shannon Christianson (niece) [phone] VTE prophylaxis: Heparin Admission and Anticipated Discharge Date Admission Date: August 22, 2022 Subjective Patient seen and examined at bedside. She is sitting up on the chair; not in any distress. She is oriented to self but is not able to tell her she is. Jackson in place draining clear urine. Urine output of 2 L in last 24 hours. Review of Systems Review of Systems: Unobtainable due to cognitive status Physical Exam Physical Exam: Constitutional: WD/WN, vitals as above, NAD, sitting up in bed, pleasant, conversing easily Respiratory: normal respiratory effort, lungs clear to auscultation, no wheeze, rales, rhonchi. Normal insp/exp effort, no accessory muscle use Cardiovascular: RRR, no murmur, no edema Vessels: no JVD or carotid bruit Chest: normal inspection of chest Abdomen: normal bowel sounds, soft, nontender, no hepatosplenomegaly Musculoskeletal: no cyanosis or clubbing, extremities motor strength 5/5 Skin: no rashes, warm and dry normal turgor Neurologic: PERRL, EOMI, accommodation nl, no face palsy, no dysarthria CN's II- XI intact bilaterally and moves all extremities Psychiatric: A+Ox3, euthymic affect Lymphatic: no cervical or axillary lymphadenopathy : deferred Results & Data Results & Data ([facility]) Vital Signs (Past 12 Hours) Vital Signs Temp Pulse Resp BP Pulse Ox O2 Del Method 08/23/22 09:22 67 14 129/67 98 Room Air 08/23/22 04:00 36.6 C 89 18 126/84 99 Room Air 08/23/22 00:00 37.2 C 113 H 16 110/88 100 Room Air Laboratory Results Laboratory Results WBC 6.85 K/ul (4.8-10.8) 08/23/22 04:45 RBC 3.13 M/uL (3.93-5.22) L 08/23/22 04:45 Hgb 9.7 g/dl (12.0-16.0) L 08/23/22 04:45 Hct 28.5 % (34.1-44.9) L 08/23/22 04:45 MCV 91.1 fL (80.0-100.0) 08/23/22 04:45 MCH 31.0 pg (25.0-34.0) 08/23/22 04:45 MCHC 34.0 g/dL (32.0-36.0) 08/23/22 04:45 RDW Std Deviation 44.0 fL (36.4-46.3) 08/23/22 04:45 RDW Coeff of Javier 13.4 % (11.5-14.5) 08/23/22 04:45 Plt Count 201 K/uL (130-400) 08/23/22 04:45 MPV 10.1 fL (9.4-12.3) 08/23/22 04:45 Immature Gran % (Auto) 0.5 % 08/22/22 10:55 Neut % (Auto) 71.2 % 08/22/22 10:55 Lymph % (Auto) 14.9 % 08/22/22 10:55 Centre % (Auto) 9.7 % 08/22/22 10:55 Eos % (Auto) 3.0 % 08/22/22 10:55 Baso % (Auto) 0.7 % 08/22/22 10:55 Neut # (Auto) 4.34 K/uL (1.4-6.5) 08/22/22 10:55 Lymph # (Auto) 0.91 K/uL (1.2-3.4) L 08/22/22 10:55 Centre # (Auto) 0.59 K/uL (0.24-0.82) 08/22/22 10:55 Eos # (Auto) 0.18 K/uL (0-0.50) 08/22/22 10:55 Baso # (Auto) 0.04 K/uL (0-0.2) 08/22/22 10:55 Immature Gran # (Auto) 0.03 K/uL (0.00-0.02) H 08/22/22 10:55 Sodium 142 mmol/L (136-145) 08/23/22 04:45 Potassium 4.6 mmol/L (3.5-5.1) 08/23/22 04:45 Chloride 110 mmol/L (98-107) H 08/23/22 04:45 Carbon Dioxide 23 mmol/L (21-32) 08/23/22 04:45 Anion Gap 9 (3-11) 08/23/22 04:45 BUN 53 mg/dl (6-23) H 08/23/22 04:45 Creatinine 2.48 mg/dl (0.6-1.2) H 08/23/22 04:45 Est Cr Clr Drug Dosing 16.0 ml/min 08/23/22 04:45 Est GFR ( Amer) 21.1 ml/min 08/23/22 04:45 Est GFR (Non-Af Amer) 18.2 ml/min 08/23/22 04:45 BUN/Creatinine Ratio 21.4 (10-20) H 08/23/22 04:45 Glucose 96 mg/dl (70-99(Fasting)) 08/23/22 04:45 POC Glucose 138 mg/dl (70-99) H 08/22/22 16:24 Calcium 9.4 mg/dl (8.5-10.1) 08/23/22 04:45 Phosphorus 3.4 mg/dl (2.5-4.9) 08/23/22 04:45 Magnesium 2.0 mg/dl (1.7-2.4) 08/23/22 04:45 Total Bilirubin 0.3 mg/dl (0.2-1.0) 08/22/22 10:55 AST 18 U/L (13-39) 08/22/22 10:55 ALT 13 U/L (7-52) 08/22/22 10:55 Alkaline Phosphatase 80 U/L (34-104) 08/22/22 10:55 Troponin I High Sens 2.9 pg/ml (0-14) 08/22/22 10:55 Total Protein 7.3 gm/dl (6.0-8.3) 08/22/22 10:55 Albumin 3.8 gm/dl (3.4-5.0) 08/22/22 10:55 Globulin 3.5 gm/dl (2.5-4.0) 08/22/22 10:55 Albumin/Globulin Ratio 1.1 (0.9-2) 08/22/22 10:55 Procalcitonin 0.13 ng/ml (0-0.5) 08/23/22 04:45 TSH 2.267 uIu/ml (0.300-4.500) 08/22/22 10:55 Urine Color Yellow 08/22/22 11:10 Urine Appearance Clear (Clear) 08/22/22 11:10 Urine pH 6.5 (4.5-7.5) 08/22/22 11:10 Ur Specific Miller 1.014 (1.000-1.030) 08/22/22 11:10 Urine Protein Negative (Negative) 08/22/22 11:10 Urine Glucose (UA) Negative (Negative) 08/22/22 11:10 Urine Ketones Negative (Negative) 08/22/22 11:10 Urine Blood Negative (Negative) 08/22/22 11:10 Urine Nitrite Negative (Negative) 08/22/22 11:10 Urine Bilirubin Negative (Negative) 08/22/22 11:10 Urine Urobilinogen Negative (Negative) 08/22/22 11:10 Ur Leukocyte Esterase 3+ (Negative) H 08/22/22 11:10 Urine WBC (Auto) 10-30 /hpf (0-5) H 08/22/22 11:10 Urine RBC (Auto) 0-4 /hpf (0-4) 08/22/22 11:10 U Hyaline Cast (Auto) 1-5 /lpf (0-5) 08/22/22 11:10 U Epithel Cells (Auto) >30 /lpf (0-5) H 08/22/22 11:10 Urine Bacteria (Auto) Negative (Negative) 08/22/22 11:10 Ur Renal Epithelial Cell 0-5 /lpf (0-5) 08/22/22 11:10 Urine Osmolality 431 mOsm/kg (500-800) L 08/22/22 11:10 Ur Random Creatinine 83.1 mg/dl 08/22/22 11:10 U Random Total Protein 22.9 mg/dl (0-11.9) H 08/22/22 11:10 Ur Random Sodium 29 mmol/L 08/22/22 11:10 Protein/Creatinin Ratio 0.3 (0-0.2) H 08/22/22 11:10 Nasal Screen MRSA (PCR) Negative (Negative) 08/22/22 19:00 Adenovirus (PCR) Not Detected (NotDetected) 08/22/22 11:10 B. pertussis DNA (PCR) Not Detected (NotDetected) 08/22/22 11:10 B.parapertussis DNA PCR Not Detected (NotDetected) 08/22/22 11:10 C. pneumoniae DNA (PCR) Not Detected (NotDetected) 08/22/22 11:10 Coronavirus OC43 (PCR) Not Detected (NotDetected) 08/22/22 11:10 Coronavirus HKU1 (PCR) Not Detected (NotDetected) 08/22/22 11:10 Coronavirus 229E (PCR) Not Detected (NotDetected) 08/22/22 11:10 SARS-CoV-2 (PCR) Not Detected (NotDetected) 08/22/22 11:10 Coronavirus NL63 (PCR) Not Detected (NotDetected) 08/22/22 11:10 Human Metapneumovir PCR Not Detected (NotDetected) 08/22/22 11:10 Influenza Type A (PCR) Not Detected (NotDetected) 08/22/22 11:10 Influenza Type B (PCR) Not Detected (NotDetected) 08/22/22 11:10 M. pneumoniae (PCR) Not Detected (NotDetected) 08/22/22 11:10 Parainfluenza 1 (PCR) Not Detected (NotDetected) 08/22/22 11:10 Parainfluenza 2 (PCR) Not Detected (NotDetected) 08/22/22 11:10 Parainfluenza 3 (PCR) Not Detected (NotDetected) 08/22/22 11:10 Parainfluenza 4 (PCR) Not Detected (NotDetected) 08/22/22 11:10 RSV (PCR) Not Detected (NotDetected) 08/22/22 11:10 Entero/Rhino (PCR) Not Detected (NotDetected) 08/22/22 11:10 Impressions Chest X-Ray 08/22/22 11:07 XR chest 1V portable CLINICAL HISTORY: weakness COMPARISON STUDY: Chest radiograph December 03, 2021. FINDINGS: Lung volumes are normal. Lungs are clear. There is no pneumothorax or pleural effusion. Cardiac size is normal. Mediastinal contours are normal. There is no evidence for pulmonary edema. Mild interstitial thickening is unchanged and likely chronic IMPRESSION: No acute cardiopulmonary findings. No significant change in appearance of the chest. Interstitial thickening, likely chronic. ACT 112: Negative or not required by law. Electronically signed by: Yuval Arredondo M.D. 08/22/2022 11:[address] 08/22/22 11:07 CT OF THE HEAD WITHOUT CONTRAST CLINICAL HISTORY: Confusion. COMPARISON STUDY: Head CT December 03, 2021 and MRI of the brain June 21, 2017. TECHNIQUE: Helical axial images of the head were obtained without IV contrast. Automated exposure control was utilized for the study. A dose lowering technique was utilized adhering to the principles of ALARA. FINDINGS: No acute intracranial hemorrhage, midline shift or mass effect is present. The bladder hypodensity suggests small vessel disease. The appearance of brain is unchanged. The ventricular system is unremarkable. The basal cisterns are patent. No extra-axial collections are present. There are no findings to suggest acute dural sinus thrombosis or acute territorial infarct. No significant calvarial abnormalities are present. Visualized portions of the sinuses and mastoid air cells are clear. Multiple sites of venous gas are noted. IMPRESSION: No acute intracranial findings. ACT 112: Negative or not required by law. Electronically signed by: Yuval Arredondo M.D. 08/22/2022 1:32 PM Hip/Pelvis X-Ray 08/22/22 11:07 XR hips DASHAWN 1v w pelvis CLINICAL HISTORY: ?fall COMPARISON: Pelvis radiograph December 04, 2021. FINDINGS: Sacroiliac joints and symphysis pubis are intact. There is no acute fracture within the pelvis or hips. Hip joint spaces are preserved. IMPRESSION: No acute fracture within the pelvis or hips. ACT 112: Negative or not required by law. Electronically signed by: Yuval Arredondo M.D. 08/22/2022 11:42 AM Abdomen/Pelvis CT 08/22/22 11:59 CT OF THE ABDOMEN AND PELVIS WITHOUT CONTRAST CLINICAL HISTORY: Acute renal failure. COMPARISON STUDY: No previous studies for comparison. TECHNIQUE: Axial images of the abdomen and pelvis were obtained without IV contrast. Images were reviewed in the axial, sagittal, and coronal planes. Automated exposure control was utilized for the study. A dose lowering technique was utilized adhering to the principles of ALARA. FINDINGS: Postoperative findings within the right breast are noted. This exam is mildly compromised by artifact. No pneumatosis, free air or portal venous gas is present. A 1.2 cm water attenuation lateral segment hepatic lesion favors a cyst. There is no biliary or pancreatic ductal dilatation dictation. Unenhanced images of the spleen, adrenal glands and pancreas are unremarkable. There is no hydronephrosis. No urinary calculi are present. There is trace bilateral perinephric stranding. There is no evidence for a bowel obstruction. No ascites or lymphadenopathy is present. There are no acute fractures within the visualized skeletal structures. Moderate plaque of the abdominal aorta and branch vessels is present. IMPRESSION: 1. No urinary calculi or hydronephrosis. Trace bilateral perinephric stranding which could be correlated with urinalysis. 2. No acute process within the abdomen or pelvis on unenhanced exam. Exam mildly compromised by artifact. 3. No bowel obstruction. ACT 112: Negative or not required by law. Electronically signed by: Yuval Arredondo M.D. 08/22/2022 1:38 PM
[2022-08-23] MEDS ORDERED: cefTRIAXone SODIUM 1,000 MG in DEXTROSE 5% AD-VAN 50 ML IV SCH (13:00)
[2022-08-23] MEDS: FLUTICASONE PROPIONATE NA SPR 16 GM BTL NAE SCH (20:12)
[2022-08-23] MEDS: QUEtiapine FUMARATE 25 MG TABLET PO SCH (20:13)
[2022-08-23] MEDS: HEPARIN SOD 5,000 UNIT/0.5 ML VIAL SQ SCH (20:13)
[2022-08-23] MEDS: SERTRALINE HCL 50 MG TABLET PO SCH (20:14)
[2022-08-24] MEDS: *RESTASIS*ORDER AWAITING ACTION SCH ×4 (01:00→23:48)
[2022-08-24 06:10] LABS: Basophils # (auto) 0.03 K/uL (0-0.2); Basophils % (auto) 0.5 %; Eosinophils # (auto) 0.18 K/uL (0-0.50); Eosinophils % (auto) 2.8 %; Hemoglobin 9.2 g/dl (12.0-16.0); Immature Granulocytes # (auto) 0.02 K/uL (0.00-0.02); Immature Granulocytes % (auto) 0.3 %; Lymphocytes # (auto) 1.37 K/uL (1.2-3.4); Lymphocytes % (auto) 21.6 %; Mean Corpuscular Hemoglobin 30.9 pg (25.0-34.0); Mean Corpuscular Hgb Conc 32.9 g/dL (32.0-36.0); Mean Platelet Volume 10.1 fL (9.4-12.3); Monocytes # (auto) 0.62 K/uL (0.24-0.82); Monocytes % (auto) 9.8 %; Neutrophils # (auto) 4.13 K/uL (1.4-6.5); Platelet Count 174 K/uL (130-400); RDW Coefficient of Variation 13.6 % (11.5-14.5); RDW Standard Deviation 46.4 fL (36.4-46.3); Red Blood Count 2.98 M/uL (3.93-5.22); White Blood Count 6.35 K/ul (4.8-10.8)
[2022-08-24 06:42] LABS: Albumin Globulin Ratio 1.1 (0.9-2); Albumin Level 3.4 gm/dl (3.4-5.0); BUN Creatinine Ratio 15.7 (10-20); Bilirubin,Total 0.3 mg/dl (0.2-1.0); Calcium 8.6 mg/dl (8.5-10.1); Creatinine Clr Calc Pharmacy 16.8 ml/min; Est GFR (African American) 22.4 ml/min; Est GFR (Non-African American) 19.4 ml/min; Globulin 3.1 gm/dl (2.5-4.0); Potassium 4.7 mmol/L (3.5-5.1); Total Protein 6.5 gm/dl (6.0-8.3)
[2022-08-24] MEDS: HEPARIN SOD 5,000 UNIT/0.5 ML VIAL SQ SCH ×2 (09:31→20:02)
[2022-08-24] MEDS: D5W AND 1/2NSS 1,000 ML IV SCH ×2 (09:32→19:26)
--- NOTE | 2022-08-24 10:28 | Nephrology Progress Note ---
Date of Service August 24, 2022 Assessment & Plan (1) Acute renal failure (ARF): Plan: improving prerenal nonoliguric Stage 2 MYKEL on CKD 3B; baseline creatinine 1.2 as of January 2022; presented w/ creatinine 3.5 cont D51/2 NS but increased rate to 125 ml/hr cont to hold ACEI daily bmp reasonable from neph standpoint to d/c della (2) Hyperkalemia: Plan: resolved w/ medical therapy cont to hold acei for now already removed low K parameters from diet order Admission and Anticipated Discharge Date Admission Date: August 22, 2022 Subjective no interval events. still on 1:1; very lethargic, not interactive today w/ me though aide assures me pt was awake earlier this am, took a few sips of breakfast; then asked to go to bank; then sleeping since Review of Systems Review of Systems: Unobtainable due to cognitive status Physical Exam Constitutional: well developed, well nourished, + frail appearing and comfortable; no acute distress Eyes: EOM intact bilaterally ENMT: Ears: no external ear abnormality Nose: no external nose abnormality Mouth: + dry oral mucous membranes Neck: no nuchal rigidity Respiratory: normal respiratory effort Auscultation: + diminished lung sounds Cardiovascular: Rate/Rhythm: regular rate and regular rhythm Extremities: no edema Gastrointestinal (Abdomen): Inspection/Auscultation: normal bowel sounds Percussion/Palpation: abdomen soft; abdomen nontender Musculoskeletal: Extremities: strength 5/5 throughout Skin: no rashes, warm and dry Psychiatric: Insight: + poor insight Judgement: + poor judgement Results & Data ([facility] [place]) Vital Signs (Past 12 Hours) Vital Signs Temp Pulse Pulse Resp BP Pulse Ox O2 Del Method 08/24/22 08:00 66 08/24/22 03:25 36.4 C L 70 16 154/82 H 99 Room Air 08/24/22 00:00 55 L 15 97 08/23/22 23:00 58 L 17 97 Laboratory Results 08/24/22 05:40 08/24/22 05:40
--- NOTE | 2022-08-24 12:03 | Hospitalist Progress Note ---
Date of Service August 24, 2022 Assessment & Plan (1) Acute kidney injury: (2) Dementia: (3) HTN (hypertension): (4) GERD (gastroesophageal reflux disease): (5) Depression: Plan 77-year-old presents from long-term residential with altered mental status. Potassium 6.7, creatinine 3.54. Baseline creatinine from -. nephrology consult. Will place on HCO3 gtt as recommended by Nephrology. Pre-Renal Acute kidney injury: Hyperkalemia Dehydration: Presented from long-term residential with altered mental status. Creatinine found to be 3.5. Baseline creatinine of 1.2 in January. Potassium was 6.7 on admission; received calcium gluconate and insulin. FENa of 0.9% suggestive of prerenal cause Creatinine down trending Urine output of 2 L. Potassium normalized Plan; -Nephrology on board; currently on D5 half NS at 80 cc/h. -Continue to hold YOU -Avoid nephrotoxic agent -Daily BMP Possible urinary tract infection Urinalysis shows 3+ leukocyte esterase, WBC count of 10-30 Urinalysis culture gram-positive cocci with 8000 colonies per high-power field DC antibiotic Dementia with behavioral disturbance: Per resident home overall decline since January both cognitively and functionally Patient is able to ambulate and eat independently at baseline, but unsure on intake Resident home indicates patient is becoming more incontinent and having decreased oral intake Takes rivastigmine; continue Takes Seroquel nightly related to behavioral disturbance; HTN: Lisinopril on hold due to MYKEL Metoprolol currently on hold due to sinus bradycardia. Will start on amlodipine if she continues to be hypotensive. GERD: Takes Omeprazole; continue Depression: Takes Sertraline; continue Disposition: PCP: Janet Zuluaga/Dr. Kendrick CODE STATUS: DNR/DNI Next of Kin: Shannon Christianson (niece) [phone] VTE prophylaxis: Heparin Admission and Anticipated Discharge Date Admission Date: August 22, 2022 Subjective Patient seen and examined at bedside. She is sleepy; awake able via voice. As per nursing, patient will intermittently wake up and is impulsive. Jackson shows pinkish urine. Review of Systems Review of Systems: All systems reviewed & are unremarkable except as noted in Subjective Physical Exam Physical Exam: Constitutional: Sleepy but awake able by voice; not in distress. Respiratory: normal respiratory effort, lungs clear to auscultation, no wheeze, rales, rhonchi. Normal insp/exp effort, no accessory muscle use Cardiovascular: RRR, no murmur, no edema Vessels: no JVD or carotid bruit Chest: normal inspection of chest Abdomen: normal bowel sounds, soft, nontender, no hepatosplenomegaly Musculoskeletal: no cyanosis or clubbing, extremities motor strength 5/5 Skin: no rashes, warm and dry normal turgor Neurologic: PERRL, EOMI, accommodation nl, no face palsy, no dysarthria CN's II- XI intact bilaterally and moves all extremities Psychiatric: Has history of dementia. Needs frequent redirection. Lymphatic: no cervical or axillary lymphadenopathy : deferred Results & Data Results & Data ([facility]) Vital Signs (Past 12 Hours) Vital Signs Temp Pulse Pulse Resp BP Pulse Ox O2 Del Method 08/24/22 08:00 66 08/24/22 03:25 36.4 C L 70 16 154/82 H 99 Room Air
[2022-08-24] MEDS: BETAMETHASONE DIPROPIONATE 0.05% EXT SCH (13:06)
[2022-08-24] MEDS: OLANZapine 10 MG/2.1 ML SDV IM PRN (18:40)
[2022-08-24] MEDS: FLUTICASONE PROPIONATE NA SPR 16 GM BTL NAE SCH (20:02)
[2022-08-24] MEDS: SERTRALINE HCL 50 MG TABLET PO SCH (20:03)
[2022-08-24] MEDS: QUEtiapine FUMARATE 25 MG TABLET PO SCH (20:03)
[2022-08-25] MEDS: D5W AND 1/2NSS 1,000 ML IV SCH ×2 (03:54→11:40)
[2022-08-25] MEDS: BETAMETHASONE DIPROPIONATE 0.05% EXT SCH (09:10)
[2022-08-25] MEDS: HEPARIN SOD 5,000 UNIT/0.5 ML VIAL SQ SCH ×2 (09:10→21:15)
[2022-08-25] MEDS: SODIUM CHLORIDE 5% OP SOLN 15 ML BTL OP PRN (09:10)
[2022-08-25] MEDS: *RESTASIS*ORDER AWAITING ACTION SCH ×3 (09:21→23:34)
[2022-08-25] MEDS: RIVASTIGMINE REMOVE SCH (09:22)
[2022-08-25 10:40] LABS: Albumin Globulin Ratio 1.1 (0.9-2); Albumin Level 3.5 gm/dl (3.4-5.0); BUN Creatinine Ratio 10.4 (10-20); Bilirubin,Total 0.4 mg/dl (0.2-1.0); Calcium 8.9 mg/dl (8.5-10.1); Creatinine Clr Calc Pharmacy 21.8 ml/min; Est GFR (African American) 30.7 ml/min; Est GFR (Non-African American) 26.5 ml/min; Globulin 3.2 gm/dl (2.5-4.0); Potassium 3.9 mmol/L (3.5-5.1); Total Protein 6.7 gm/dl (6.0-8.3)
--- NOTE | 2022-08-25 11:38 | Hospitalist Progress Note ---
Date of Service August 25, 2022 Assessment & Plan (1) Acute kidney injury: (2) Dementia: (3) HTN (hypertension): (4) GERD (gastroesophageal reflux disease): (5) Depression: Plan 77-year-old presents from long-term retirement with altered mental status. Potassium 6.7, creatinine 3.54. Baseline creatinine from -. nephrology consult. Will place on HCO3 gtt as recommended by Nephrology. Pre-Renal Acute kidney injury: Hyperkalemia Dehydration: Presented from long-term retirement with altered mental status. Creatinine found to be 3.5. Baseline creatinine of 1.2 in January. Potassium was 6.7 on admission; received calcium gluconate and insulin. FENa of 0.9% suggestive of prerenal cause Creatinine down trending with reassuring urine output Potassium normalized Plan; -Nephrology on board; currently on D5 half NS at 125 cc/h. -Jackson discontinued. -Continue to hold YOU -Avoid nephrotoxic agent -Daily BMP Possible urinary tract infection Urinalysis shows 3+ leukocyte esterase, WBC count of 10-30 Urinalysis culture gram-positive cocci with 8000 colonies per high-power field DC antibiotic Dementia with behavioral disturbance: Per resident home overall decline since January both cognitively and functionally Patient is able to ambulate and eat independently at baseline, but unsure on intake Resident home indicates patient is becoming more incontinent and having decreased oral intake Takes rivastigmine; continue Takes Seroquel nightly related to behavioral disturbance; Plan; Currently on oral Zyprexa 2.5 as needed twice daily. IM Zyprexa to be given if patient is agitated and does not respond to oral Zyprexa. -- She is also on one-to-one observation due to increased impulsiveness and fall risks. HTN: Lisinopril on hold due to MYKEL Metoprolol currently on hold due to sinus bradycardia. Will start on amlodipine if she continues to be hypertensive. GERD: Takes Omeprazole; continue Depression: Takes Sertraline; continue Disposition: PCP: Janet Zuluaga/Dr. Kendrick CODE STATUS: DNR/DNI Next of Kin: Shannon Christianson (niece) [phone] VTE prophylaxis: Heparin Admission and Anticipated Discharge Date Admission Date: August 22, 2022 Subjective Patient seen and examined at bedside. She is lying in the bed; not in any distress. She opens her eyes to verbal stimuli. She is not oriented to time place or person. Last evening, patient required IM Zyprexa due to increased agitation. Review of Systems Review of Systems: Unobtainable due to cognitive status Physical Exam Physical Exam: Constitutional: Sleepy but awake able by voice; not in distress. Respiratory: normal respiratory effort, lungs clear to auscultation, no wheeze, rales, rhonchi. Normal insp/exp effort, no accessory muscle use Cardiovascular: RRR, no murmur, no edema Vessels: no JVD or carotid bruit Chest: normal inspection of chest Abdomen: normal bowel sounds, soft, nontender, no hepatosplenomegaly Musculoskeletal: no cyanosis or clubbing, extremities motor strength 5/5 Skin: no rashes, warm and dry normal turgor Neurologic: PERRL, EOMI, accommodation nl, no face palsy, no dysarthria CN's II- XI intact bilaterally and moves all extremities Psychiatric: Has history of dementia. Needs frequent redirection. Lymphatic: no cervical or axillary lymphadenopathy : deferred Results & Data Results & Data ([facility]) Vital Signs (Past 12 Hours) Vital Signs Temp Pulse Pulse Resp BP BP Pulse Ox 08/25/22 10:53 36.7 C 80 20 138/65 99 08/25/22 09:36 69 08/25/22 07:04 36.7 C 86 18 156/81 H 98 08/25/22 03:57 36.9 C 77 16 121/90 99 08/24/22 23:52 36.9 C 76 18 143/76 H 100 O2 Del Method 08/25/22 10:53 Room Air 08/25/22 09:36 08/25/22 07:04 Room Air 08/25/22 03:57 Room Air 08/24/22 23:52 Room Air Laboratory Results Laboratory Results WBC 6.35 K/ul (4.8-10.8) 08/24/22 05:40 RBC 2.98 M/uL (3.93-5.22) L 08/24/22 05:40 Hgb 9.2 g/dl (12.0-16.0) L 08/24/22 05:40 Hct 28.0 % (34.1-44.9) L 08/24/22 05:40 MCV 94.0 fL (80.0-100.0) 08/24/22 05:40 MCH 30.9 pg (25.0-34.0) 08/24/22 05:40 MCHC 32.9 g/dL (32.0-36.0) 08/24/22 05:40 RDW Std Deviation 46.4 fL (36.4-46.3) H 08/24/22 05:40 RDW Coeff of Javier 13.6 % (11.5-14.5) 08/24/22 05:40 Plt Count 174 K/uL (130-400) 08/24/22 05:40 MPV 10.1 fL (9.4-12.3) 08/24/22 05:40 Immature Gran % (Auto) 0.3 % 08/24/22 05:40 Neut % (Auto) 65.0 % 08/24/22 05:40 Lymph % (Auto) 21.6 % 08/24/22 05:40 [place] % (Auto) 9.8 % 08/24/22 05:40 Eos % (Auto) 2.8 % 08/24/22 05:40 Baso % (Auto) 0.5 % 08/24/22 05:40 Neut # (Auto) 4.13 K/uL (1.4-6.5) 08/24/22 05:40 Lymph # (Auto) 1.37 K/uL (1.2-3.4) 08/24/22 05:40 [place] # (Auto) 0.62 K/uL (0.24-0.82) 08/24/22 05:40 Eos # (Auto) 0.18 K/uL (0-0.50) 08/24/22 05:40 Baso # (Auto) 0.03 K/uL (0-0.2) 08/24/22 05:40 Immature Gran # (Auto) 0.02 K/uL (0.00-0.02) 08/24/22 05:40 Sodium 143 mmol/L (136-145) 08/25/22 09:58 Potassium 3.9 mmol/L (3.5-5.1) 08/25/22 09:58 Chloride 113 mmol/L (98-107) H 08/25/22 09:58 Carbon Dioxide 21 mmol/L (21-32) 08/25/22 09:58 Anion Gap 9 (3-11) 08/25/22 09:58 BUN 19 mg/dl (6-23) 08/25/22 09:58 Creatinine 1.82 mg/dl (0.6-1.2) H D 08/25/22 09:58 Est Cr Clr Drug Dosing 21.8 ml/min 08/25/22 09:58 Est GFR ( Amer) 30.7 ml/min 08/25/22 09:58 Est GFR (Non-Af Amer) 26.5 ml/min 08/25/22 09:58 BUN/Creatinine Ratio 10.4 (10-20) 08/25/22 09:58 Glucose 118 mg/dl (70-99(Fasting)) H 08/25/22 09:58 POC Glucose 138 mg/dl (70-99) H 08/22/22 16:24 Calcium 8.9 mg/dl (8.5-10.1) 08/25/22 09:58 Phosphorus 3.4 mg/dl (2.5-4.9) 08/23/22 04:45 Magnesium 2.0 mg/dl (1.7-2.4) 08/23/22 04:45 Total Bilirubin 0.4 mg/dl (0.2-1.0) 08/25/22 09:58 AST 57 U/L (13-39) H 08/25/22 09:58 ALT 24 U/L (7-52) 08/25/22 09:58 Alkaline Phosphatase 72 U/L (34-104) 08/25/22 09:58 Troponin I High Sens 2.9 pg/ml (0-14) 08/22/22 10:55 Total Protein 6.7 gm/dl (6.0-8.3) 08/25/22 09:58 Albumin 3.5 gm/dl (3.4-5.0) 08/25/22 09:58 Globulin 3.2 gm/dl (2.5-4.0) 08/25/22 09:58 Albumin/Globulin Ratio 1.1 (0.9-2) 08/25/22 09:58 Procalcitonin 0.13 ng/ml (0-0.5) 08/23/22 04:45 TSH 2.267 uIu/ml (0.300-4.500) 08/22/22 10:55 Urine Color Yellow 08/22/22 11:10 Urine Appearance Clear (Clear) 08/22/22 11:10 Urine pH 6.5 (4.5-7.5) 08/22/22 11:10 Ur Specific [place] 1.014 (1.000-1.030) 08/22/22 11:10 Urine Protein Negative (Negative) 08/22/22 11:10 Urine Glucose (UA) Negative (Negative) 08/22/22 11:10 Urine Ketones Negative (Negative) 08/22/22 11:10 Urine Blood Negative (Negative) 08/22/22 11:10 Urine Nitrite Negative (Negative) 08/22/22 11:10 Urine Bilirubin Negative (Negative) 08/22/22 11:10 Urine Urobilinogen Negative (Negative) 08/22/22 11:10 Ur Leukocyte Esterase 3+ (Negative) H 08/22/22 11:10 Urine WBC (Auto) 10-30 /hpf (0-5) H 08/22/22 11:10 Urine RBC (Auto) 0-4 /hpf (0-4) 08/22/22 11:10 U Hyaline Cast (Auto) 1-5 /lpf (0-5) 08/22/22 11:10 U Epithel Cells (Auto) >30 /lpf (0-5) H 08/22/22 11:10 Urine Bacteria (Auto) Negative (Negative) 08/22/22 11:10 Ur Renal Epithelial Cell 0-5 /lpf (0-5) 08/22/22 11:10 Urine Osmolality 431 mOsm/kg (500-800) L 08/22/22 11:10 Ur Random Creatinine 83.1 mg/dl 08/22/22 11:10 U Random Total Protein 22.9 mg/dl (0-11.9) H 08/22/22 11:10 Ur Random Sodium 29 mmol/L 08/22/22 11:10 Protein/Creatinin Ratio 0.3 (0-0.2) H 08/22/22 11:10 Nasal Screen MRSA (PCR) Negative (Negative) 08/22/22 19:00 Adenovirus (PCR) Not Detected (NotDetected) 08/22/22 11:10 B. pertussis DNA (PCR) Not Detected (NotDetected) 08/22/22 11:10 B.parapertussis DNA PCR Not Detected (NotDetected) 08/22/22 11:10 C. pneumoniae DNA (PCR) Not Detected (NotDetected) 08/22/22 11:10 Coronavirus OC43 (PCR) Not Detected (NotDetected) 08/22/22 11:10 Coronavirus HKU1 (PCR) Not Detected (NotDetected) 08/22/22 11:10 Coronavirus 229E (PCR) Not Detected (NotDetected) 08/22/22 11:10 SARS-CoV-2 (PCR) Not Detected (NotDetected) 08/22/22 11:10 Coronavirus NL63 (PCR) Not Detected (NotDetected) 08/22/22 11:10 Human Metapneumovir PCR Not Detected (NotDetected) 08/22/22 11:10 Influenza Type A (PCR) Not Detected (NotDetected) 08/22/22 11:10 Influenza Type B (PCR) Not Detected (NotDetected) 08/22/22 11:10 M. pneumoniae (PCR) Not Detected (NotDetected) 08/22/22 11:10 Parainfluenza 1 (PCR) Not Detected (NotDetected) 08/22/22 11:10 Parainfluenza 2 (PCR) Not Detected (NotDetected) 08/22/22 11:10 Parainfluenza 3 (PCR) Not Detected (NotDetected) 08/22/22 11:10 Parainfluenza 4 (PCR) Not Detected (NotDetected) 08/22/22 11:10 RSV (PCR) Not Detected (NotDetected) 08/22/22 11:10 Entero/Rhino (PCR) Not Detected (NotDetected) 08/22/22 11:10 Impressions Chest X-Ray 08/22/22 11:07 XR chest 1V portable CLINICAL HISTORY: weakness COMPARISON STUDY: Chest radiograph December 03, 2021. FINDINGS: Lung volumes are normal. Lungs are clear. There is no pneumothorax or pleural effusion. Cardiac size is normal. Mediastinal contours are normal. There is no evidence for pulmonary edema. Mild interstitial thickening is unchanged and likely chronic IMPRESSION: No acute cardiopulmonary findings. No significant change in appearance of the chest. Interstitial thickening, likely chronic. ACT 112: Negative or not required by law. Electronically signed by: Yuval Arredondo M.D. 08/22/2022 11:[address] 08/22/22 11:07 CT OF THE HEAD WITHOUT CONTRAST CLINICAL HISTORY: Confusion. COMPARISON STUDY: Head CT December 03, 2021 and MRI of the brain June 21, 2017. TECHNIQUE: Helical axial images of the head were obtained without IV contrast. Automated exposure control was utilized for the study. A dose lowering technique was utilized adhering to the principles of ALARA. FINDINGS: No acute intracranial hemorrhage, midline shift or mass effect is present. The bladder hypodensity suggests small vessel disease. The appearance of brain is unchanged. The ventricular system is unremarkable. The basal cisterns are patent. No extra-axial collections are present. There are no findings to suggest acute dural sinus thrombosis or acute territorial infarct. No significant calvarial abnormalities are present. Visualized portions of the sinuses and mastoid air cells are clear. Multiple sites of venous gas are noted. IMPRESSION: No acute intracranial findings. ACT 112: Negative or not required by law. Electronically signed by: Yuval Arredondo M.D. 08/22/2022 1:32 PM Hip/Pelvis X-Ray 08/22/22 11:07 XR hips DASHAWN 1v w pelvis CLINICAL HISTORY: ?fall COMPARISON: Pelvis radiograph December 04, 2021. FINDINGS: Sacroiliac joints and symphysis pubis are intact. There is no acute fracture within the pelvis or hips. Hip joint spaces are preserved. IMPRESSION: No acute fracture within the pelvis or hips. ACT 112: Negative or not required by law. Electronically signed by: Yuval Arredondo M.D. 08/22/2022 11:42 AM Abdomen/Pelvis CT 08/22/22 11:59 CT OF THE ABDOMEN AND PELVIS WITHOUT CONTRAST CLINICAL HISTORY: Acute renal failure. COMPARISON STUDY: No previous studies for comparison. TECHNIQUE: Axial images of the abdomen and pelvis were obtained without IV contrast. Images were reviewed in the axial, sagittal, and coronal planes. Automated exposure control was utilized for the study. A dose lowering technique was utilized adhering to the principles of ALARA. FINDINGS: Postoperative findings within the right breast are noted. This exam is mildly compromised by artifact. No pneumatosis, free air or portal venous gas is present. A 1.2 cm water attenuation lateral segment hepatic lesion favors a cyst. There is no biliary or pancreatic ductal dilatation dictation. Unenhanced images of the spleen, adrenal glands and pancreas are unremarkable. There is no hydronephrosis. No urinary calculi are present. There is trace bilateral perinephric stranding. There is no evidence for a bowel obstruction. No ascites or lymphadenopathy is present. There are no acute fractures within the visualized skeletal structures. Moderate plaque of the abdominal aorta and branch vessels is present. IMPRESSION: 1. No urinary calculi or hydronephrosis. Trace bilateral perinephric stranding which could be correlated with urinalysis. 2. No acute process within the abdomen or pelvis on unenhanced exam. Exam mildly compromised by artifact. 3. No bowel obstruction. ACT 112: Negative or not required by law. Electronically signed by: Yuval Arredondo M.D. 08/22/2022 1:38 PM
--- NOTE | 2022-08-25 18:35 | Nephrology Progress Note ---
Date of Service August 25, 2022 Assessment & Plan (1) Acute renal failure (ARF): Plan: further improving prerenal nonoliguric Stage 2 MYKEL on CKD 3B; baseline creatin ine 1.2 as of January 2022; presented w/ creatinine 3.5 cont D51/2 NS at 125 ml/hr cont to hold ACEI daily bmp reasonable from neph standpoint to d/c hull Will sign off; pls call if further ?; no specific nephro f/u recs; care coordinated w/ Dr Jacques (2) Hyperkalemia: Plan: resolved w/ medical therapy cont to hold acei for now already removed low K parameters from diet order Admission and Anticipated Discharge Date Admission Date: August 22, 2022 Subjective seen on rounds at about 1300; remains on 1:1 and minimally interactive. does c/o feeling cold when I wake her. Review of Systems Review of Systems: Unobtainable due to cognitive status Physical Exam Constitutional: well developed, well nourished, + frail appearing and comfortable; no acute distress Eyes: EOM intact bilaterally ENMT: Ears: + hearing impairment; no external ear abnormality Nose: no external nose abnormality Mouth: + dry oral mucous membranes Neck: no nuchal rigidity Respiratory: normal respiratory effort Auscultation: + diminished lung sounds Cardiovascular: Rate/Rhythm: regular rate and regular rhythm Extremities: no edema Gastrointestinal (Abdomen): Inspection/Auscultation: normal bowel sounds Percussion/Palpation: abdomen soft; abdomen nontender Musculoskeletal: Extremities: strength 5/5 throughout Skin: no rashes, warm and dry Psychiatric: Orientation: oriented to person; + not oriented to place and + not oriented to time Insight: + poor insight Judgement: + poor judgement Results & Data ([facility]) Vital Signs (Past 12 Hours) Vital Signs Temp Pulse Pulse Resp BP BP Pulse Ox 08/25/22 15:31 36.3 C L 102 H 20 153/88 H 100 08/25/22 10:53 36.7 C 80 20 138/65 99 08/25/22 09:36 69 08/25/22 07:04 36.7 C 86 18 156/81 H 98 O2 Del Method 08/25/22 15:31 Room Air 08/25/22 10:53 Room Air 08/25/22 09:36 08/25/22 07:04 Room Air Laboratory Results 08/24/22 05:40 12/24/22 09:58
[2022-08-25] MEDS: QUEtiapine FUMARATE 25 MG TABLET PO SCH (21:14)
[2022-08-25] MEDS: FLUTICASONE PROPIONATE NA SPR 16 GM BTL NAE SCH (21:14)
[2022-08-25] MEDS: SERTRALINE HCL 50 MG TABLET PO SCH (21:15)
[2022-08-26] MEDS: OLANZapine ZYDIS 5 MG ORALLY DIS. TAB PO PRN (01:09)
[2022-08-26] MEDS: D5W AND 1/2NSS 1,000 ML IV SCH ×2 (01:17→20:15)
[2022-08-26] MEDS: *RESTASIS*ORDER AWAITING ACTION SCH ×2 (07:08→14:39)
[2022-08-26 07:23] LABS: Basophils # (auto) 0.05 K/uL (0-0.2); Basophils % (auto) 0.7 %; Eosinophils # (auto) 0.17 K/uL (0-0.50); Eosinophils % (auto) 2.3 %; Hematocrit (blood only) 29.1 % (34.1-44.9); Hemoglobin 9.7 g/dl (12.0-16.0); Immature Granulocytes # (auto) 0.02 K/uL (0.00-0.02); Immature Granulocytes % (auto) 0.3 %; Lymphocytes # (auto) 0.97 K/uL (1.2-3.4); Lymphocytes % (auto) 13.3 %; Mean Corpuscular Hemoglobin 31.4 pg (25.0-34.0); Mean Corpuscular Hgb Conc 33.3 g/dL (32.0-36.0); Mean Corpuscular Volume 94.2 fL (80.0-100.0); Mean Platelet Volume 10.2 fL (9.4-12.3); Monocytes # (auto) 0.73 K/uL (0.24-0.82); Neutrophils # (auto) 5.38 K/uL (1.4-6.5); Neutrophils % (auto) 73.4 %; Platelet Count 197 K/uL (130-400); RDW Coefficient of Variation 13.6 % (11.5-14.5); RDW Standard Deviation 46.6 fL (36.4-46.3); Red Blood Count 3.09 M/uL (3.93-5.22); White Blood Count 7.32 K/ul (4.8-10.8)
[2022-08-26 07:50] LABS: BUN Creatinine Ratio 9.6 (10-20); Calcium 8.9 mg/dl (8.5-10.1); Creatinine Clr Calc Pharmacy 23.8 ml/min; Est GFR (African American) 34.3 ml/min; Est GFR (Non-African American) 29.6 ml/min; Potassium 3.6 mmol/L (3.5-5.1)
[2022-08-26] MEDS: OLANZapine 10 MG/2.1 ML SDV IM PRN (08:45)
[2022-08-26] MEDS: SODIUM CHLORIDE 5% OP SOLN 15 ML BTL OP PRN (08:48)
[2022-08-26] MEDS: BETAMETHASONE DIPROPIONATE 0.05% EXT SCH (08:48)
[2022-08-26] MEDS: HEPARIN SOD 5,000 UNIT/0.5 ML VIAL SQ SCH ×2 (08:49→20:45)
[2022-08-26] MEDS: RIVASTIGMINE REMOVE SCH (08:49)
--- NOTE | 2022-08-26 10:25 | Hospitalist Progress Note ---
Date of Service August 26, 2022 Assessment & Plan (1) Acute kidney injury: (2) Dementia: (3) HTN (hypertension): (4) GERD (gastroesophageal reflux disease): (5) Depression: Plan 77-year-old presents from long-term group home with altered mental status. Potassium 6.7, creatinine 3.54. Baseline creatinine from -.[address] on HCO3 gtt as recommended by Nephrology. Pre-Renal Acute kidney injury: Hyperkalemia Dehydration: Presented from long-term group home with altered mental status. Creatinine found to be 3.5. Baseline creatinine of 1.2 in January. Potassium was 6.7 on admission; received calcium gluconate and insulin. FENa of 0.9% suggestive of prerenal cause Creatinine down trending with reassuring urine output Potassium normalized Plan; -Nephrology on board; currently on D5 half NS at 60 cc/h. -Jackson discontinued. -Continue to hold YOU -Avoid nephrotoxic agent -Daily BMP Possible urinary tract infection Urinalysis shows 3+ leukocyte esterase, WBC count of 10-30 Urinalysis culture gram-positive cocci with 8000 colonies per high-power field DC antibiotics Dementia with behavioral disturbance: Per resident home overall decline since January both cognitively and functionally Patient is able to ambulate and eat independently at baseline, but unsure on intake Resident home indicates patient is becoming more incontinent and having decreased oral intake Takes rivastigmine; continue Takes Seroquel nightly related to behavioral disturbance; Plan; Currently on oral Zyprexa 2.5 as needed twice daily. IM Zyprexa to be given if patient is agitated and does not respond to oral Zyprexa. -- Changed from one-to-one observation to every 15 checks We will consult psychiatry for management of dementia with behavioral disturbance. HTN: Lisinopril on hold due to MYKEL Metoprolol currently on hold due to sinus bradycardia. Will start on amlodipine if she continues to be hypertensive. GERD: Takes Omeprazole; continue Depression: Takes Sertraline; continue Disposition: PCP: Janet Zuluaga/Dr. Kendrick CODE STATUS: DNR/DNI Next of Kin: Shannon Christianson (niece) [phone]; updated over the phone on 08/25. VTE prophylaxis: Heparin Dispositionpatient came from long-term rehab. In order to get discharged back, patient needs to be able to be back to her baseline status ADL mo. We will obtain PT OT evaluation to assess. Also, try to triate her psych medications as recommended by psych to control her behavioral disturbances. Admission and Anticipated Discharge Date Admission Date: August 22, 2022 Subjective Patient seen and examined at bedside. She had periods of agitation last evening required IM Zyprexa. Review of Systems Review of Systems: Unobtainable due to mental health condition Physical Exam Physical Exam: Constitutional: Sleepy but awake able by voice; not in distress. Respiratory: normal respiratory effort, lungs clear to auscultation, no wheeze, rales, rhonchi. Normal insp/exp effort, no accessory muscle use Cardiovascular: RRR, no murmur, no edema Vessels: no JVD or carotid bruit Chest: normal inspection of chest Abdomen: normal bowel sounds, soft, nontender, no hepatosplenomegaly Musculoskeletal: no cyanosis or clubbing, extremities motor strength 5/5 Skin: no rashes, warm and dry normal turgor Neurologic: PERRL, EOMI, accommodation nl, no face palsy, no dysarthria CN's II- XI intact bilaterally and moves all extremities Psychiatric: Has history of dementia. Needs frequent redirection. Lymphatic: no cervical or axillary lymphadenopathy : deferred Results & Data Results & Data ([facility]) Vital Signs (Past 12 Hours) Vital Signs Temp Pulse Resp BP Pulse Ox O2 Del Method 08/26/22 07:00 36.9 C 92 H 18 145/85 H 94 Room Air 08/26/22 02:16 37.1 C 88 18 140/85 99 Room Air Laboratory Results Laboratory Results WBC 7.32 K/ul (4.8-10.8) 08/26/22 06:29 RBC 3.09 M/uL (3.93-5.22) L 08/26/22 06:29 Hgb 9.7 g/dl (12.0-16.0) L 08/26/22 06:29 Hct 29.1 % (34.1-44.9) L 08/26/22 06:29 MCV 94.2 fL (80.0-100.0) 08/26/22 06:29 MCH 31.4 pg (25.0-34.0) 08/26/22 06:29 MCHC 33.3 g/dL (32.0-36.0) 08/26/22 06: RDW Std Deviation 46.6 fL (36.4-46.3) H 08/26/22 06: RDW Coeff of Javier 13.6 % (11.5-14.5) 08/26/22 06: Plt Count 197 K/uL (130-400) 08/26/22 06: MPV 10.2 fL (9.4-12.3) 08/26/22 06: Immature Gran % (Auto) 0.3 % 08/26/22 06: Neut % (Auto) 73.4 % 08/26/22 06: Lymph % (Auto) 13.3 % 08/26/22 06: Armstrong % (Auto) 10.0 % 08/26/22 06: Eos % (Auto) 2.3 % 08/26/22 06: Baso % (Auto) 0.7 % 08/26/22 06: Neut # (Auto) 5.38 K/uL (1.4-6.5) 08/26/22 06:29 Lymph # (Auto) 0.97 K/uL (1.2-3.4) L 08/26/22 06: Armstrong # (Auto) 0.73 K/uL (0.24-0.82) 08/26/22 06:29 Eos # (Auto) 0.17 K/uL (0-0.50) 08/26/22 06: Baso # (Auto) 0.05 K/uL (0-0.2) 08/26/22 06: Immature Gran # (Auto) 0.02 K/uL (0.00-0.02) 08/26/22 06:29 Sodium 145 mmol/L (136-145) 08/26/22 06: Potassium 3.6 mmol/L (3.5-5.1) 08/26/22 06: Chloride 115 mmol/L (98-107) H 08/26/22 06:29 Carbon Dioxide 21 mmol/L (21-32) 08/26/22 06:29 Anion Gap 9 (3-11) 08/26/22 06:29 BUN 16 mg/dl (6-23) 08/26/22 06:29 Creatinine 1.66 mg/dl (0.6-1.2) H 08/26/22 06:29 Est Cr Clr Drug Dosing 23.8 ml/min 08/26/22 06:29 Est GFR ( Amer) 34.3 ml/min 08/26/22 06:29 Est GFR (Non-Af Amer) 29.6 ml/min 08/26/22 06:29 BUN/Creatinine Ratio 9.6 (10-20) L 08/26/22 06:29 Glucose 92 mg/dl (70-99(Fasting)) 08/26/22 06:29 POC Glucose 138 mg/dl (70-99) H 08/22/22 16:24 Calcium 8.9 mg/dl (8.5-10.1) 08/26/22 06:29 Phosphorus 3.4 mg/dl (2.5-4.9) 08/23/22 04:45 Magnesium 2.0 mg/dl (1.7-2.4) 08/23/22 04:45 Total Bilirubin 0.4 mg/dl (0.2-1.0) 08/25/22 09:58 AST 57 U/L (13-39) H 08/25/22 09:58 ALT 24 U/L (7-52) 08/25/22 09:58 Alkaline Phosphatase 72 U/L (34-104) 08/25/22 09:58 Troponin I High Sens 2.9 pg/ml (0-14) 08/22/22 10:55 Total Protein 6.7 gm/dl (6.0-8.3) 08/25/22 09:58 Albumin 3.5 gm/dl (3.4-5.0) 08/25/22 09:58 Globulin 3.2 gm/dl (2.5-4.0) 08/25/22 09:58 Albumin/Globulin Ratio 1.1 (0.9-2) 08/25/22 09:58 Procalcitonin 0.13 ng/ml (0-0.5) 08/23/22 04:45 TSH 2.267 uIu/ml (0.300-4.500) 08/22/22 10:55 Urine Color Yellow 08/22/22 11:10 Urine Appearance Clear (Clear) 08/22/22 11:10 Urine pH 6.5 (4.5-7.5) 08/22/22 11:10 Ur Specific [place] 1.014 (1.000-1.030) 08/22/22 11:10 Urine Protein Negative (Negative) 08/22/22 11:10 Urine Glucose (UA) Negative (Negative) 08/22/22 11:10 Urine Ketones Negative (Negative) 08/22/22 11:10 Urine Blood Negative (Negative) 08/22/22 11:10 Urine Nitrite Negative (Negative) 08/22/22 11:10 Urine Bilirubin Negative (Negative) 08/22/22 11:10 Urine Urobilinogen Negative (Negative) 08/22/22 11:10 Ur Leukocyte Esterase 3+ (Negative) H 08/22/22 11:10 Urine WBC (Auto) 10-30 /hpf (0-5) H 08/22/22 11:10 Urine RBC (Auto) 0-4 /hpf (0-4) 08/22/22 11:10 U Hyaline Cast (Auto) 1-5 /lpf (0-5) 08/22/22 11:10 U Epithel Cells (Auto) >30 /lpf (0-5) H 08/22/22 11:10 Urine Bacteria (Auto) Negative (Negative) 08/22/22 11:10 Ur Renal Epithelial Cell 0-5 /lpf (0-5) 08/22/22 11:10 Urine Osmolality 431 mOsm/kg (500-800) L 08/22/22 11:10 Ur Random Creatinine 83.1 mg/dl 08/22/22 11:10 U Random Total Protein 22.9 mg/dl (0-11.9) H 08/22/22 11:10 Ur Random Sodium 29 mmol/L 08/22/22 11:10 Protein/Creatinin Ratio 0.3 (0-0.2) H 08/22/22 11:10 Nasal Screen MRSA (PCR) Negative (Negative) 08/22/22 19:00 Adenovirus (PCR) Not Detected (NotDetected) 08/22/22 11:10 B. pertussis DNA (PCR) Not Detected (NotDetected) 08/22/22 11:10 B.parapertussis DNA PCR Not Detected (NotDetected) 08/22/22 11:10 C. pneumoniae DNA (PCR) Not Detected (NotDetected) 08/22/22 11:10 Coronavirus OC43 (PCR) Not Detected (NotDetected) 08/22/22 11:10 Coronavirus HKU1 (PCR) Not Detected (NotDetected) 08/22/22 11:10 Coronavirus 229E (PCR) Not Detected (NotDetected) 08/22/22 11:10 SARS-CoV-2 (PCR) Not Detected (NotDetected) 08/22/22 11:10 Coronavirus NL63 (PCR) Not Detected (NotDetected) 08/22/22 11:10 Human Metapneumovir PCR Not Detected (NotDetected) 08/22/22 11:10 Influenza Type A (PCR) Not Detected (NotDetected) 08/22/22 11:10 Influenza Type B (PCR) Not Detected (NotDetected) 08/22/22 11:10 M. pneumoniae (PCR) Not Detected (NotDetected) 08/22/22 11:10 Parainfluenza 1 (PCR) Not Detected (NotDetected) 08/22/22 11:10 Parainfluenza 2 (PCR) Not Detected (NotDetected) 08/22/22 11:10 Parainfluenza 3 (PCR) Not Detected (NotDetected) 08/22/22 11:10 Parainfluenza 4 (PCR) Not Detected (NotDetected) 08/22/22 11:10 RSV (PCR) Not Detected (NotDetected) 08/22/22 11:10 Entero/Rhino (PCR) Not Detected (NotDetected) 08/22/22 11:10 Impressions Chest X-Ray 08/22/22 11:07 XR chest 1V portable CLINICAL HISTORY: weakness COMPARISON STUDY: Chest radiograph December 03, 2021. FINDINGS: Lung volumes are normal. Lungs are clear. There is no pneumothorax or pleural effusion. Cardiac size is normal. Mediastinal contours are normal. There is no evidence for pulmonary edema. Mild interstitial thickening is unchanged and likely chronic IMPRESSION: No acute cardiopulmonary findings. No significant change in appearance of the chest. Interstitial thickening, likely chronic. ACT 112: Negative or not required by law. Electronically signed by: Yuval Arredondo M.D. 08/22/2022 11:[address] 08/22/22 11:07 CT OF THE HEAD WITHOUT CONTRAST CLINICAL HISTORY: Confusion. COMPARISON STUDY: Head CT December 03, 2021 and MRI of the brain June 21, 2017. TECHNIQUE: Helical axial images of the head were obtained without IV contrast. Automated exposure control was utilized for the study. A dose lowering technique was utilized adhering to the principles of ALARA. FINDINGS: No acute intracranial hemorrhage, midline shift or mass effect is present. The bladder hypodensity suggests small vessel disease. The appearance of brain is unchanged. The ventricular system is unremarkable. The basal cisterns are patent. No extra-axial collections are present. There are no findings to suggest acute dural sinus thrombosis or acute territorial infarct. No significant calvarial abnormalities are present. Visualized portions of the sinuses and mastoid air cells are clear. Multiple sites of venous gas are noted. IMPRESSION: No acute intracranial findings. ACT 112: Negative or not required by law. Electronically signed by: Yuval Arredondo M.D. 08/22/2022 1:32 PM Hip/Pelvis X-Ray 08/22/22 11:07 XR hips DASHAWN 1v w pelvis CLINICAL HISTORY: ?fall COMPARISON: Pelvis radiograph December 04, 2021. FINDINGS: Sacroiliac joints and symphysis pubis are intact. There is no acute fracture within the pelvis or hips. Hip joint spaces are preserved. IMPRESSION: No acute fracture within the pelvis or hips. ACT 112: Negative or not required by law. Electronically signed by: Yuval Arredondo M.D. 08/22/2022 11:42 AM Abdomen/Pelvis CT 08/22/22 11:59 CT OF THE ABDOMEN AND PELVIS WITHOUT CONTRAST CLINICAL HISTORY: Acute renal failure. COMPARISON STUDY: No previous studies for comparison. TECHNIQUE: Axial images of the abdomen and pelvis were obtained without IV contrast. Images were reviewed in the axial, sagittal, and coronal planes. Automated exposure control was utilized for the study. A dose lowering tech nique was utilized adhering to the principles of ALARA. FINDINGS: Postoperative findings within the right breast are noted. This exam is mildly compromised by artifact. No pneumatosis, free air or portal venous gas is present. A 1.2 cm water attenuation lateral segment hepatic lesion favors a cyst. There is no biliary or pancreatic ductal dilatation dictation. Unenhanced images of the spleen, adrenal glands and pancreas are unremarkable. There is no hydronephrosis. No urinary calculi are present. There is trace bilateral perinephric stranding. There is no evidence for a bowel obstruction. No ascites or lymphadenopathy is present. There are no acute fractures within the visualized skeletal structures. Moderate plaque of the abdominal aorta and branch vessels is present. IMPRESSION: 1. No urinary calculi or hydronephrosis. Trace bilateral perinephric stranding which could be correlated with urinalysis. 2. No acute process within the abdomen or pelvis on unenhanced exam. Exam mildly compromised by artifact. 3. No bowel obstruction. ACT 112: Negative or not required by law. Electronically signed by: Yuval Arredondo M.D. 08/22/2022 1:38 PM
--- NOTE | 2022-08-26 11:53 | Psychiatric Consultation ---
Date of Consultation August 26, 2022 Impression / Recommendations Impression Diagnostically consistent with likely encephalopathy/delirium superimposed on dementia with behavioral disturbance. Goal in dementia is to avoid medication management of behaviors if possible by maximizing non-pharmacologic strategies for behavioral management. However, given worsening agitation/aggression and already on scheduled seroquel at bedtime it's felt that risk/benefit profile continues to favor antipsychotic use. Note all antipsychotic medications carry black box warning for increased risk of all-cause mortality in setting of dementia. Doses felt to be safe even in context of kidney function changes given limited renal clearance. Will attempt use of haldol for behavioral emergencies given limited benefit/response to olanzapine so far. 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 Psychiatry consulted for increased agitation. Chief Complaint sleeping History of Present Illness Nannette is on seroquel 25mg qhs in outpatient setting for dementia with behavioral disturbance admitted for increased confusion in context of decreased po intake with MYKEL and elevated potassium. Has become increasingly agitated in inpatient setting requiring IM olanzapine and ODT olanzapine on the , and then again this morning but with limited benefit. Oriented only to self and at times not even to that. Requiring 1-on-1 due to confusion and agitation. Sleeping this morning and not felt therapeutic to attempt to wake her given agitation all morning. Allergies Allergy/AdvReac Type Severity Reaction Status Date / Time No Known Allergies Allergy Verified 08/22/22 15:35 Home Medications Medication Instructions Recorded Confirmed Type aspirin 81 mg tablet,delayed 81 mg PO DAILY 06/08/19 08/22/22 History release cholecalciferol (vitamin D3) 25 1,000 units PO DAILY 06/08/19 08/22/22 History mcg (1,000 unit) capsule lisinopril 40 mg tablet 40 mg PO DAILY #90 tabs 06/08/19 08/22/22 History atorvastatin 40 mg tablet 40 mg PO DAILY 04/01/20 08/22/22 History calcium carbonate 600 mg calcium 300 mg PO TID 04/01/20 08/22/22 History (1,500 mg) tablet cyclosporine 0.05 % eye drops 1 drops ophthalmic (eye) Q12H 04/01/20 08/22/22 History (Restasis MultiDose) fluticasone propionate 50 2 sprays intranasal QPM 04/01/20 08/22/22 History mcg/actuation nasal spray,suspension (Flonase Allergy Relief) sertraline 25 mg tablet 25 mg PO HS 04/01/20 08/22/22 History [id number]-ljy C-Mn 500 2 cap PO DAILY 05/31/21 08/22/22 History mg-400 mg capsule saliva substitute combo no.9 1 ea mucous membrane BID 05/31/21 08/22/22 History (Biotene Dry Mouth Oral Rinse mouthwash) metoprolol tartrate 50 mg tablet 25 mg PO BID 06/05/21 08/22/22 History ketoconazole 2 % shampoo 1 applic topical .COMPLEX #120 mL 08/11/21 08/22/22 Rx rivastigmine 4.6 mg/24 hour 4.6 mg transdermal DAILY #30 ea 11/17/21 08/22/22 Rx transdermal patch quetiapine 25 mg tablet 25 mg PO HS 12/03/21 08/22/22 History betamethasone dipropionate 0.05 % 1 applic topical DAILY #60 mL 06/01/22 08/22/22 Rx lotion acetaminophen 325 mg tablet 650 mg PO Q6 PRN Fever Or Pain 08/22/22 08/22/22 History food supplemt, lactose-reduced 1 - 2 ea PO DAILY 08/22/22 08/22/22 History guaifenesin 600 mg tablet, 600 mg PO BID PRN cough/congestion 08/22/22 08/22/22 History extended release 12 hr (Mucinex) multivitamin (Daily-Marleny tablet) 1 tab PO DAILY 08/22/22 08/22/22 History omega-3 fatty acids 500 mg capsule 1,000 mg PO QAM 08/22/22 08/22/22 History omeprazole 20 mg capsule,delayed 20 mg PO DAILY 08/22/22 08/22/22 History release Personal History Living Arrangements: Personal Care Facility Beliefs That Will Affect Care: None Patient History Medical History Acute kidney injury 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) CKD (chronic kidney disease) stage 3, GFR 30-59 ml/min Dementia Depression GERD (gastroesophageal reflux disease) HTN (hypertension) Hypertension Mixed dyslipidemia Vertigo Surgical History History of cataract surgery Family History Mother Aortic aneurysm, ruptured Breast cancer Skin cancer Pancreatic cancer Father Lung cancer Social History Smoking Status: Former smoker Preferred Language: Luxembourgish Communication Ability: Unable Jig Bore Tool Maker Required: No Beliefs That Will Affect Care: None Current Living Situation: Personal Care Facility Feels Safe at Home: Yes Assistive Devices: None Physical Exam Psychiatric: Orientation: + not alert, + not oriented to place and + not oriented to time Apperance: + disheveled Eye Contact: + poor eye contact Motor Behavior: no abnormal motor movements Speech: + mute Affect: + labile affect Mood: + irritable mood Thought Process: + looseness of associations Thought Content: + preoccupation Suicidal Thoughts: denies suicidal thoughts Homicidal Thoughts: denies homicidal thoughts Hallucinations: no auditory hallucinations and no visual hallucinations Cognition: language grossly intact; + recent memory not intact and + attention not intact Insight: + severely impaired insight Judgement: + severely impaired judgement Vital Signs (Past 24 Hours): Last Vital Signs Temp 36.6 C 08/26/22 11:46 Pulse 90 08/26/22 11:46 Resp 18 08/26/22 11:46 BP 153/94 H 08/26/22 11:46 Pulse Ox 99 08/26/22 11:46 O2 Del Method 08/26/22 11:46 O2 Flow Rate 0 08/22/22 10:49 Review of Systems Unobtainable due to cognitive status Results & Data (PSY) Laboratory Results CMP reviewed, Na+ and K+ now nml Diagnostic Findings QTc 380ms on EKG 08/22/22 Medications Administered Acetaminophen (Acetaminophen 325 Mg Tab) 650 mg PO Q4H PRN PRN Reason: Pain or Fever Stop: 09/21/22 14:56 Last Admin: 08/26/22 04:01 Dose: 650 mg Documented By: JOSUÉ Betamethasone Dipropionate (Betamethasone Dipropionate Lotion 0.05% 60 Ml Btl) 1 appln EXT DAILY [facility] Stop: 09/23/22 12:39 Last Admin: 08/26/22 08:48 Dose: 1 appln Documented By: Admin: 08/25/22 09:10 Dose: 1 appln Documented By: Admin: 08/24/22 13:06 Dose: Not Given Documented By: ZULEMA Fluticasone Propionate (Fluticasone Propionate Na Spr 16 Gm Btl) 2 sprays ECHO QPM [facility] Stop: 09/21/22 20:59 Last Admin: 08/25/22 21:14 Dose: 2 sprays Documented By: Admin: 08/24/22 20:02 Dose: 2 sprays Documented By: Admin: 08/23/22 20:12 Dose: 2 sprays Documented By: Admin: 08/22/22 20:15 Dose: 2 sprays Documented By: NABILA Heparin Sodium (Porcine) (Heparin Sod 5,000 Unit/0.5 Ml Vial) 5,000 units SQ Q12 [facility] Stop: 09/22/22 20:59 Last Admin: 08/26/22 08:49 Dose: 5,000 units Documented By: Admin: 08/25/22 21:15 Dose: 5,000 units Documented By: Admin: 08/25/22 09:10 Dose: 5,000 units Documented By: Admin: 08/24/22 20:02 Dose: 5,000 units Documented By: Admin: 08/24/22 09:31 Dose: 5,000 units Documented By: Admin: 08/23/22 20:13 Dose: 5,000 units Documented By: RONNIE Dextrose/Sodium Chloride (D5w And 1/2nss) 1,000 mls @ 60 mls/hr IV .[id number] [facility] Stop: 09/22/22 08:59 Last Infusion: 08/26/22 09:55 Dose: 0 mls/hr Documented By: Admin: 08/26/22 01:17 Dose: 60 mls/hr Documented By: Infusion: 08/26/22 01:16 Dose: 0 mls/hr Documented By: Infusion: 08/25/22 15:16 Dose: 60 mls/hr Documented By: Admin: 08/25/22 11:40 Dose: 125 mls/hr Documented By: Infusion: 08/25/22 11:40 Dose: 125 mls/hr Documented By: Admin: 08/25/22 03:54 Dose: 125 mls/hr Documented By: Infusion: 08/25/22 03:32 Dose: 0 mls/hr Documented By: Infusion: 08/24/22 21:16 Dose: 125 mls/hr Documented By: Admin: 08/24/22 19:26 Dose: 125 mls/hr Documented By: Infusion: 08/24/22 19:26 Dose: 80 mls/hr Documented By: Admin: 08/24/22 09:32 Dose: 80 mls/hr Documented By: AMBeka Infusion: 08/24/22 08:47 Dose: 80 mls/hr Documented By: Admin: 08/23/22 20:17 Dose: 80 mls/hr Documented By: Infusion: 08/23/22 20:17 Dose: 80 mls/hr Documented By: Admin: 08/23/22 09:02 Dose: 80 mls/hr Documented By: KERWIN Metoprolol Tartrate (Metoprolol Tartrate 25 Mg Tab) 25 mg PO BID [facility] Stop: 09/21/22 20:59 Last Admin: 08/23/22 08:34 Dose: 25 mg Documented By: Admin: 08/22/22 21:12 Dose: 25 mg Documented By: NABILA Miscellaneous (*Restasis*Order Awaiting Action) 1 each N/A QS [facility] Stop: 09/22/22 00:00 Last Admin: 08/26/22 07:08 Dose: Not Given Documented By: AMBeka Admin: 08/25/22 23:34 Dose: 1 each Documented By: Admin: 08/25/22 18:03 Dose: Not Given Documented By: AMBeka Admin: 08/25/22 09:21 Dose: Not Given Documented By: Admin: 08/24/22 23:48 Dose: Not Given Documented By: Admin: 08/24/22 13:22 Dose: Not Given Documented By: Admin: 08/24/22 13:07 Dose: Not Given Documented By: Admin: 08/24/22 01:00 Dose: Not Given Documented By: Admin: 08/23/22 15:14 Dose: Not Given Documented By: Admin: 08/23/22 08:33 Dose: Not Given Documented By: Admin: 08/23/22 00:16 Dose: Not Given Documented By: NABILA Miscellaneous (Rivastigmine~Remove Patch) 1 each N/A DAILY@0859 [facility] Stop: 09/24/22 08:58 Last Admin: 08/26/22 08:49 Dose: 1 each Documented By: Admin: 08/25/22 09:22 Dose: Not Given Documented By: ZULEMA Olanzapine (Olanzapine Zydis 5 Mg Orally Dis. Tab) 2.5 mg PO Q12 PRN PRN Reason: Agitation Stop: 09/21/22 17:25 Last Admin: 08/26/22 01:09 Dose: 2.5 mg Documented By: Admin: 08/22/22 20:17 Dose: 2.5 mg Documented By: NABILA Olanzapine (Olanzapine 10 Mg/2.1 Ml Sdv) 5 mg IM Q6H PRN PRN Reason: Agitation Stop: 09/23/22 17:59 Last Admin: 08/26/22 08:45 Dose: 5 mg Documented By: Admin: 08/24/22 18:40 Dose: 5 mg Documented By: ZULEMA Quetiapine Fumarate (Quetiapine Fumarate 25 Mg Tablet) 25 mg PO HS [facility] Stop: 09/21/22 20:59 Last Admin: 08/25/22 21:14 Dose: 25 mg Documented By: Admin: 08/24/22 20:03 Dose: 25 mg Documented By: Admin: 08/23/22 20:13 Dose: 25 mg Documented By: Admin: 08/22/22 20:16 Dose: 25 mg Documented By: NABILA Rivastigmine (Rivastigmine 4.6 Mg/24 Hr Patch) 1 patch TD DAILY [facility] Stop: 09/23/22 12:39 Last Admin: 08/26/22 08:48 Dose: 1 patch Documented By: Admin: 08/25/22 09:10 Dose: 1 patch Documented By: Admin: 08/24/22 13:06 Dose: Not Given Documented By: ZULEMA Sertraline HCl (Sertraline Hcl 50 Mg Tablet) 25 mg PO HS [facility] Stop: 09/21/22 20:59 Last Admin: 08/25/22 21:15 Dose: 25 mg Documented By: Admin: 08/24/22 20:03 Dose: 25 mg Documented By: Admin: 08/23/22 20:14 Dose: 25 mg Documented By: Admin: 08/22/22 20:16 Dose: 25 mg Documented By: NABILA Sodium Chloride (Sodium Chloride 5% Op Soln 15 Ml Btl) 1 drops OP BID PRN PRN Reason: PAIN CONTROL Stop: 09/23/22 12:39 Last Admin: 08/26/22 08:48 Dose: 1 drops Documented By: Admin: 08/25/22 09:10 Dose: 1 drops Documented By: ZULEMA Coding Level of Care Code 52711 Inpt Consult Level 3 Diagnoses Dementia with behavioral disturbance F03.918 Acute kidney injury N17.9
[2022-08-26] MEDS ORDERED: HALOPERIDOL LACTATE 5 MG/ML 1 ML VIAL IM PRN (12:54)
[2022-08-26] MEDS ORDERED: LORazepam 2 MG/1 ML VIAL IM PRN (12:54)
[2022-08-26] MEDS: FLUTICASONE PROPIONATE NA SPR 16 GM BTL NAE SCH (20:16)
[2022-08-26] MEDS: QUEtiapine FUMARATE 25 MG TABLET PO SCH (20:16)
[2022-08-26] MEDS: SERTRALINE HCL 50 MG TABLET PO SCH (20:45)
[2022-08-27] MEDS: *RESTASIS*ORDER AWAITING ACTION SCH ×3 (00:15→14:04)
[2022-08-27 06:41] LABS: Basophils # (auto) 0.03 K/uL (0-0.2); Basophils % (auto) 0.5 %; Eosinophils # (auto) 0.22 K/uL (0-0.50); Hematocrit (blood only) 26.5 % (34.1-44.9); Hemoglobin 8.9 g/dl (12.0-16.0); Immature Granulocytes # (auto) 0.02 K/uL (0.00-0.02); Immature Granulocytes % (auto) 0.4 %; Lymphocytes # (auto) 0.94 K/uL (1.2-3.4); Mean Corpuscular Hemoglobin 31.3 pg (25.0-34.0); Mean Corpuscular Hgb Conc 33.6 g/dL (32.0-36.0); Mean Corpuscular Volume 93.3 fL (80.0-100.0); Mean Platelet Volume 9.5 fL (9.4-12.3); Monocytes # (auto) 0.56 K/uL (0.24-0.82); Monocytes % (auto) 10.1 %; Neutrophils # (auto) 3.75 K/uL (1.4-6.5); Platelet Count 181 K/uL (130-400); RDW Coefficient of Variation 13.3 % (11.5-14.5); RDW Standard Deviation 45.6 fL (36.4-46.3); Red Blood Count 2.84 M/uL (3.93-5.22); White Blood Count 5.52 K/ul (4.8-10.8)
[2022-08-27 07:17] LABS: Albumin Globulin Ratio 1.2 (0.9-2); Albumin Level 3.4 gm/dl (3.4-5.0); BUN Creatinine Ratio 10.8 (10-20); Bilirubin,Total 0.5 mg/dl (0.2-1.0); Calcium 8.8 mg/dl (8.5-10.1); Creatinine Clr Calc Pharmacy 26.8 ml/min; Est GFR (African American) 39.5 ml/min; Globulin 2.9 gm/dl (2.5-4.0); Potassium 2.8 mmol/L (3.5-5.1); Total Protein 6.3 gm/dl (6.0-8.3)
[2022-08-27] MEDS ORDERED: POTASSIUM CHLORIDE CRTAB 20 MEQ TABCR PO SCH (09:00)
[2022-08-27] MEDS: POTASSIUM CHLORIDE / WTR 10 MEQ/100 ML PLCT IV SCH ×4 (09:43→12:34)
[2022-08-27] MEDS: HEPARIN SOD 5,000 UNIT/0.5 ML VIAL SQ SCH ×2 (09:47→20:43)
[2022-08-27] MEDS: BETAMETHASONE DIPROPIONATE 0.05% EXT SCH (09:48)
[2022-08-27] MEDS: RIVASTIGMINE REMOVE SCH (09:48)
[2022-08-27] MEDS: SODIUM CHLORIDE 5% OP SOLN 15 ML BTL OP PRN (09:48)
--- NOTE | 2022-08-27 10:21 | Hospitalist Progress Note ---
Date of Service August 27, 2022 Assessment & Plan (1) Acute kidney injury: (2) Dementia: (3) HTN (hypertension): (4) GERD (gastroesophageal reflux disease): (5) Depression: Plan 77-year-old presents from long-term long-term with altered mental status. Potassium 6.7, creatinine 3.54. Baseline creatinine from -. nephrology consult. Will place on HCO3 gtt as recommended by Nephrology. Pre-Renal Acute kidney injury: Hyperkalemia Dehydration: Presented from long-term long-term with altered mental status. Creatinine found to be 3.5. Baseline creatinine of 1.2 in January. Potassium was 6.7 on admission; received calcium gluconate and insulin. FENa of 0.9% suggestive of prerenal cause Creatinine down trending with reassuring urine output Potassium normalized Plan; -Cr downtrended near to baseline; fluids stopped. patient has poor oral intake; will monitor BMP daily. -Jackson discontinued; voiding by herself. -Continue to hold YOU -Avoid nephrotoxic agent Possible urinary tract infection Urinalysis shows 3+ leukocyte esterase, WBC count of 10-30 Urinalysis culture gram-positive cocci with 8000 colonies per high-power field DC antibiotics Dementia with behavioral disturbance: Per resident home overall decline since January both cognitively and functionally Patient was able to ambulate and eat independently at baseline, but unsure on intake Resident home indicates patient is becoming more incontinent and having decreased oral intake TSH wnl Vitamin B12 wnl Plan; Psych consulted; appreciate reccs. Seroquel dose increased at night, seroquel 25mg added in am. - Also on im haldol as needed. - currently 1:1 HTN: Lisinopril on hold due to MYKEL Metoprolol currently on hold due to sinus bradycardia. Will start on amlodipine if she continues to be hypertensive. GERD: Takes Omeprazole; continue Depression: Takes Sertraline; continue Disposition: PCP: Janet Zuluaga/Dr. Kendrick CODE STATUS: DNR/DNI Next of Kin: Shannon Christianson (niece) [phone]; updated over the phone on 08/25. VTE prophylaxis: Heparin Dispositionpatient came from long-term rehab. In order to get discharged back, patient needs to be able to be back to her baseline status ADL mo. We will obtain PT OT evaluation to assess. Also, try to triate her psych medications as recommended by psych to control her behavioral disturbances. Admission and Anticipated Discharge Date Admission Date: August 22, 2022 Subjective Patient comfortable sleeping in the morning. She continues to have periods of agitation; required im haldol yesterday. Review of Systems Review of Systems: Unobtainable due to cognitive status Physical Exam Physical Exam: Constitutional: Sleepy but awake able by voice; not in distress. Respiratory: normal respiratory effort, lungs clear to auscultation, no wheeze, rales, rhonchi. Normal insp/exp effort, no accessory muscle use Cardiovascular: RRR, no murmur, no edema Vessels: no JVD or carotid bruit Chest: normal inspection of chest Abdomen: normal bowel sounds, soft, nontender, no hepatosplenomegaly Musculoskeletal: no cyanosis or clubbing, extremities motor strength 5/5 Skin: no rashes, warm and dry normal turgor Neurologic: PERRL, EOMI, accommodation nl, no face palsy, no dysarthria CN's II- XI intact bilaterally and moves all extremities Psychiatric: Has history of dementia. Needs frequent redirection. Lymphatic: no cervical or axillary lymphadenopathy : deferred Results & Data Results & Data ([facility]) Vital Signs (Past 12 Hours) Vital Signs Temp Pulse Resp BP BP Pulse Ox O2 Del Method 08/27/22 07:30 36.4 C L 80 18 137/85 96 Room Air 08/27/22 02:53 37.0 C 88 18 168/89 H 98 Room Air Laboratory Results Laboratory Results WBC 5.52 K/ul (4.8-10.8) 08/27/22 06:25 RBC 2.84 M/uL (3.93-5.22) L 08/27/22 06:25 Hgb 8.9 g/dl (12.0-16.0) L 08/27/22 06:25 Hct 26.5 % (34.1-44.9) L 08/27/22 06:25 MCV 93.3 fL (80.0-100.0) 08/27/22 06:25 MCH 31.3 pg (25.0-34.0) 08/27/22 06:25 MCHC 33.6 g/dL (32.0-36.0) 08/27/22 06:25 RDW Std Deviation 45.6 fL (36.4-46.3) 08/27/22 06:25 RDW Coeff of Javier 13.3 % (11.5-14.5) 08/27/22 06:25 Plt Count 181 K/uL (130-400) 08/27/22 06:25 MPV 9.5 fL (9.4-12.3) 08/27/22 06:25 Immature Gran % (Auto) 0.4 % 08/27/22 06:25 Neut % (Auto) 68.0 % 08/27/22 06:25 Lymph % (Auto) 17.0 % 08/27/22 06:25 [place] % (Auto) 10.1 % 08/27/22 06:25 Eos % (Auto) 4.0 % 08/27/22 06:25 Baso % (Auto) 0.5 % 08/27/22 06:25 Neut # (Auto) 3.75 K/uL (1.4-6.5) 08/27/22 06:25 Lymph # (Auto) 0.94 K/uL (1.2-3.4) L 08/27/22 06:25 [place] # (Auto) 0.56 K/uL (0.24-0.82) 08/27/22 06:25 Eos # (Auto) 0.22 K/uL (0-0.50) 08/27/22 06:25 Baso # (Auto) 0.03 K/uL (0-0.2) 08/27/22 06:25 Immature Gran # (Auto) 0.02 K/uL (0.00-0.02) 08/27/22 06:25 Sodium 143 mmol/L (136-145) 08/27/22 06:25 Potassium 2.8 mmol/L (3.5-5.1) L D 08/27/22 06:25 Chloride 114 mmol/L (98-107) H 08/27/22 06:25 Carbon Dioxide 23 mmol/L (21-32) 08/27/22 06:25 Anion Gap 6 (3-11) 08/27/22 06:25 BUN 16 mg/dl (6-23) 08/27/22 06:25 Creatinine 1.48 mg/dl (0.6-1.2) H 08/27/22 06:25 Est Cr Clr Drug Dosing 26.8 ml/min 08/27/22 06:25 Est GFR ( Amer) 39.5 ml/min 08/27/22 06:25 Est GFR (Non-Af Amer) 34.0 ml/min 08/27/22 06:25 BUN/Creatinine Ratio 10.8 (10-20) 08/27/22 06:25 Glucose 105 mg/dl (70-99(Fasting)) H 08/27/22 06:25 POC Glucose 138 mg/dl (70-99) H 08/22/22 16:24 Calcium 8.8 mg/dl (8.5-10.1) 08/27/22 06:25 Phosphorus 3.4 mg/dl (2.5-4.9) 08/23/22 04:45 Magnesium 2.0 mg/dl (1.7-2.4) 08/23/22 04:45 Total Bilirubin 0.5 mg/dl (0.2-1.0) 08/27/22 06:25 AST 69 U/L (13-39) H 08/27/22 06:25 ALT 36 U/L (7-52) 08/27/22 06:25 Alkaline Phosphatase 71 U/L (34-104) 08/27/22 06:25 Troponin I High Sens 2.9 pg/ml (0-14) 08/22/22 10:55 Total Protein 6.3 gm/dl (6.0-8.3) 08/27/22 06:25 Albumin 3.4 gm/dl (3.4-5.0) 08/27/22 06:25 Globulin 2.9 gm/dl (2.5-4.0) 08/27/22 06:25 Albumin/Globulin Ratio 1.2 (0.9-2) 08/27/22 06:25 Vitamin B12 963 pg/ml (180-914) H 08/27/22 06:25 Procalcitonin 0.13 ng/ml (0-0.5) 08/23/22 04:45 TSH 3.150 uIu/ml (0.300-4.500) 08/27/22 06:25 Urine Color Yellow 08/22/22 11:10 Urine Appearance Clear (Clear) 08/22/22 11:10 Urine pH 6.5 (4.5-7.5) 08/22/22 11:10 Ur Specific [place] 1.014 (1.000-1.030) 08/22/22 11:10 Urine Protein Negative (Negative) 08/22/22 11:10 Urine Glucose (UA) Negative (Negative) 08/22/22 11:10 Urine Ketones Negative (Negative) 08/22/22 11:10 Urine Blood Negative (Negative) 08/22/22 11:10 Urine Nitrite Negative (Negative) 08/22/22 11:10 Urine Bilirubin Negative (Negative) 08/22/22 11:10 Urine Urobilinogen Negative (Negative) 08/22/22 11:10 Ur Leukocyte Esterase 3+ (Negative) H 08/22/22 11:10 Urine WBC (Auto) 10-30 /hpf (0-5) H 08/22/22 11:10 Urine RBC (Auto) 0-4 /hpf (0-4) 08/22/22 11:10 U Hyaline Cast (Auto) 1-5 /lpf (0-5) 08/22/22 11:10 U Epithel Cells (Auto) >30 /lpf (0-5) H 08/22/22 11:10 Urine Bacteria (Auto) Negative (Negative) 08/22/22 11:10 Ur Renal Epithelial Cell 0-5 /lpf (0-5) 08/22/22 11:10 Urine Osmolality 431 mOsm/kg (500-800) L 08/22/22 11:10 Ur Random Creatinine 83.1 mg/dl 08/22/22 11:10 U Random Total Protein 22.9 mg/dl (0-11.9) H 08/22/22 11:10 Ur Random Sodium 29 mmol/L 08/22/22 11:10 Protein/Creatinin Ratio 0.3 (0-0.2) H 08/22/22 11:10 Nasal Screen MRSA (PCR) Negative (Negative) 08/22/22 19:00 Adenovirus (PCR) Not Detected (NotDetected) 08/22/22 11:10 B. pertussis DNA (PCR) Not Detected (NotDetected) 08/22/22 11:10 B.parapertussis DNA PCR Not Detected (NotDetected) 08/22/22 11:10 C. pneumoniae DNA (PCR) Not Detected (NotDetected) 08/22/22 11:10 Coronavirus OC43 (PCR) Not Detected (NotDetected) 08/22/22 11:10 Coronavirus HKU1 (PCR) Not Detected (NotDetected) 08/22/22 11:10 Coronavirus 229E (PCR) Not Detected (NotDetected) 08/22/22 11:10 SARS-CoV-2 (PCR) Not Detected (NotDetected) 08/22/22 11:10 Coronavirus NL63 (PCR) Not Detected (NotDetected) 08/22/22 11:10 Human Metapneumovir PCR Not Detected (NotDetected) 08/22/22 11:10 Influenza Type A (PCR) Not Detected (NotDetected) 08/22/22 11:10 Influenza Type B (PCR) Not Detected (NotDetected) 08/22/22 11:10 M. pneumoniae (PCR) Not Detected (NotDetected) 08/22/22 11:10 Parainfluenza 1 (PCR) Not Detected (NotDetected) 08/22/22 11:10 Parainfluenza 2 (PCR) Not Detected (NotDetected) 08/22/22 11:10 Parainfluenza 3 (PCR) Not Detected (NotDetected) 08/22/22 11:10 Parainfluenza 4 (PCR) Not Detected (NotDetected) 08/22/22 11:10 RSV (PCR) Not Detected (NotDetected) 08/22/22 11:10 Entero/Rhino (PCR) Not Detected (NotDetected) 08/22/22 11:10 Impressions Chest X-Ray 08/22/22 11:07 XR chest 1V portable CLINICAL HISTORY: weakness COMPARISON STUDY: Chest radiograph December 03, 2021. FINDINGS: Lung volumes are normal. Lungs are clear. There is no pneumothorax or pleural effusion. Cardiac size is normal. Mediastinal contours are normal. There is no evidence for pulmonary edema. Mild interstitial thickening is unchanged and likely chronic IMPRESSION: No acute cardiopulmonary findings. No significant change in appearance of the chest. Interstitial thickening, likely chronic. ACT 112: Negative or not required by law. Electronically signed by: Yuval Arredondo M.D. 08/22/2022 11:[address] 08/22/22 11:07 CT OF THE HEAD WITHOUT CONTRAST CLINICAL HISTORY: Confusion. COMPARISON STUDY: Head CT December 03, 2021 and MRI of the brain June 21, 2017. TECHNIQUE: Helical axial images of the head were obtained without IV contrast. Automated exposure control was utilized for the study. A dose lowering technique was utilized adhering to the principles of ALARA. FINDINGS: No acute intracranial hemorrhage, midline shift or mass effect is present. The bladder hypodensity suggests small vessel disease. The appearance of brain is unchanged. The ventricular system is unremarkable. The basal cisterns are patent. No extra-axial collections are present. There are no findi ngs to suggest acute dural sinus thrombosis or acute territorial infarct. No significant calvarial abnormalities are present. Visualized portions of the sinuses and mastoid air cells are clear. Multiple sites of venous gas are noted. IMPRESSION: No acute intracranial findings. ACT 112: Negative or not required by law. Electronically signed by: Yuval Arredondo M.D. 08/22/2022 1:32 PM Hip/Pelvis X-Ray 08/22/22 11:07 XR hips DASHAWN 1v w pelvis CLINICAL HISTORY: ?fall COMPARISON: Pelvis radiograph December 04, 2021. FINDINGS: Sacroiliac joints and symphysis pubis are intact. There is no acute fracture within the pelvis or hips. Hip joint spaces are preserved. IMPRESSION: No acute fracture within the pelvis or hips. ACT 112: Negative or not required by law. Electronically signed by: Yuval Arredondo M.D. 08/22/2022 11:42 AM Abdomen/Pelvis CT 08/22/22 11:59 CT OF THE ABDOMEN AND PELVIS WITHOUT CONTRAST CLINICAL HISTORY: Acute renal failure. COMPARISON STUDY: No previous studies for comparison. TECHNIQUE: Axial images of the abdomen and pelvis were obtained without IV contrast. Images were reviewed in the axial, sagittal, and coronal planes. Automated exposure control was utilized for the study. A dose lowering technique was utilized adhering to the principles of ALARA. FINDINGS: Postoperative findings within the right breast are noted. This exam is mildly compromised by artifact. No pneumatosis, free air or portal venous gas is present. A 1.2 cm water attenuation lateral segment hepatic lesion favors a cyst. There is no biliary or pancreatic ductal dilatation dictation. Unenhanced images of the spleen, adrenal glands and pancreas are unremarkable. There is no hydronephrosis. No urinary calculi are present. There is trace bilateral perinephric stranding. There is no evidence for a bowel obstruction. No ascites or lymphadenopathy is present. There are no acute fractures within the visualized skeletal structures. Moderate plaque of the abdominal aorta and branch vessels is present. IMPRESSION: 1. No urinary calculi or hydronephrosis. Trace bilateral perinephric stranding which could be correlated with urinalysis. 2. No acute process within the abdomen or pelvis on unenhanced exam. Exam mildly compromised by artifact. 3. No bowel obstruction. ACT 112: Negative or not required by law. Electronically signed by: Yuval Arredondo M.D. 08/22/2022 1:38 PM
[2022-08-27] MEDS ORDERED: OLANZapine ZYDIS 5 MG ORALLY DIS. TAB PO PRN (10:29)
[2022-08-27] MEDS ORDERED: OLANZapine 10 MG/2.1 ML SDV IM PRN (10:29)
--- NOTE | 2022-08-27 10:29 | Psychiatric Progress Note ---
Date of Service August 27, 2022 Impression / Recommendations Impression Diagnostically consistent with likely encephalopathy/delirium superimposed on dementia with behavioral disturbance. Goal in dementia is to avoid medication management of behaviors if possible by maximizing non-pharmacologic strategies for behavioral management. However, given worsening agitation/aggression and already on scheduled seroquel at bedtime it's felt that risk/benefit profile continues to favor antipsychotic use. Note all antipsychotic medications carry black box warning for increased risk of all-cause mortality in setting of dementia. Doses felt to be safe even in context of kidney function changes given limited renal clearance. 08/27/22: Ongoing confusion and refusing all po, suggests likely progression of dementia. Encourage palliative care involvement and/or discussion with family/POA regarding goals of care. Switch back to olanzapine for behavioral emergency. Tolerating higher dose of seroquel well with improved sleep, may also improve appetite. (1) Dementia with behavioral disturbance: (2) Acute kidney injury: Plan -agree with 1-on-1 as needed given level of agitation and confusion -c/w seroquel to 50mg qhs and 25mg qAM -Encourage discussion with family/palliative care regarding goals of care given progressive natue of dementia -Continue medical workup to rule out and treat any underlying causes contributing to potential delirium, avoid or limit use of deliriogenic medications (benzodiazepines, opioids, anticholinergics) -For behavioral emergency: olanzapine 2.5mg ODT and IM ordered for acute agita tion Interval History Identifying Information 77 yo woman with 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 Psychiatry consulted for increased agitation. Chief Complaint mute Review of Systems Notes slept overnight after about 2am, not eating Subjective Subjective Patient was seen & assessed and interval progress reviewed and discussed with her RN. Remains very confused when awake, often not even oriented to self. Took higher dose of po seroquel last night and did not need any IM medications overnight. Sleeping this morning and not woken given agitation when awake. Per RN she seemed to respond better to olanzapine than haldol/ativan. Physical Exam Psychiatric Orientation: oriented to person; + not alert, + not oriented to place and + not oriented to time Apperance: + disheveled Eye Contact: + poor eye contact Motor Behavior: no abnormal motor movements Speech: + mute Affect: + labile affect Mood: + irritable mood Thought Process: + looseness of associations Thought Content: + preoccupation Hallucinations: no auditory hallucinations and no visual hallucinations Cognition: language grossly intact; + recent memory not intact and + attention not intact Insight: + severely impaired insight Judgement: + severely impaired judgement Vital Signs (Past 24 Hours) Last Vital Signs Temp 36.4 C L 08/27/22 07:30 Pulse 80 08/27/22 07:30 Resp 18 08/27/22 07:30 BP 137/85 08/27/22 07:30 Pulse Ox 96 08/27/22 07:30 O2 Del Method 08/27/22 07:30 O2 Flow Rate 0 08/22/22 10:49 Results & Data ([facility]) Laboratory Results Laboratory Results - last 24 hr 08/27/22 08/27/22 08/27/22 06:25 06:25 06:25 WBC 5.52 RBC 2.84 L Hgb 8.9 L Hct 26.5 L MCV 93.3 MCH 31.3 MCHC 33.6 RDW Std Deviation 45.6 RDW Coeff of Javier 13.3 Plt Count 181 MPV 9.5 Immature Gran % (Auto) 0.4 Neut % (Auto) 68.0 Lymph % (Auto) 17.0 [place] % (Auto) 10.1 Eos % (Auto) 4.0 Baso % (Auto) 0.5 Neut # (Auto) 3.75 Lymph # (Auto) 0.94 L [place] # (Auto) 0.56 Eos # (Auto) 0.22 Baso # (Auto) 0.03 Immature Gran # (Auto) 0.02 Sodium Potassium Chloride Carbon Dioxide Anion Gap BUN Creatinine Est Cr Clr Drug Dosing Est GFR ( Amer) Est GFR (Non-Af Amer) BUN/Creatinine Ratio Glucose Calcium Total Bilirubin AST ALT Alkaline Phosphatase Total Protein Albumin Globulin Albumin/Globulin Ratio Vitamin B12 963 H TSH 3.150 08/27/22 06:25 WBC RBC Hgb Hct MCV MCH MCHC RDW Std Deviation RDW Coeff of Javier Plt Count MPV Immature Gran % (Auto) Neut % (Auto) Lymph % (Auto) [place] % (Auto) Eos % (Auto) Baso % (Auto) Neut # (Auto) Lymph # (Auto) [place] # (Auto) Eos # (Auto) Baso # (Auto) Immature Gran # (Auto) Sodium 143 Potassium 2.8 L D Chloride 114 H Carbon Dioxide 23 Anion Gap 6 BUN 16 Creatinine 1.48 H Est Cr Clr Drug Dosing 26.8 Est GFR ( Amer) 39.5 Est GFR (Non-Af Amer) 34.0 BUN/Creatinine Ratio 10.8 Glucose 105 H Calcium 8.8 Total Bilirubin 0.5 AST 69 H ALT 36 Alkaline Phosphatase 71 Total Protein 6.3 Albumin 3.4 Globulin 2.9 Albumin/Globulin Ratio 1.2 Vitamin B12 TSH Current Inpatient Medications Current Inpatient Medications: Current Inpatient Medications Acetaminophen (Acetaminophen 325 Mg Tab) 650 mg PO Q4H PRN PRN Reason: Pain or Fever Stop: 09/21/22 14:56 Last Admin: 08/26/22 04:01 Dose: 650 mg Al Hydrox/Mg Hydrox/Simethicone (Aluminum/Magnesium Susp 30 Ml Udc) 15 ml PO Q4H PRN PRN Reason: Dyspepsia Stop: 09/21/22 14:56 Amlodipine Besylate (Amlodipine Besylate 5 Mg Tab) 5 mg PO QAM AMANDO Stop: 09/26/22 10:29 Betamethasone Dipropionate (Betamethasone Dipropionate Lotion 0.05% 60 Ml Btl) 1 appln EXT DAILY AMANDO Stop: 09/23/22 12:39 Last Admin: 08/27/22 09:48 Dose: 1 appln Fluticasone Propionate (Fluticasone Propionate Na Spr 16 Gm Btl) 2 sprays ECHO QPM AMANDO Stop: 09/21/22 20:59 Last Admin: 08/26/22 20:16 Dose: 2 sprays Haloperidol Lactate (Haloperidol Lactate 5 Mg/Ml 1 Ml Vial) 2.5 mg IM BID PRN PRN Reason: agitation Stop: 09/25/22 12:53 Last Admin: 08/26/22 13:22 Dose: 2.5 mg Heparin Sodium (Porcine) (Heparin Sod 5,000 Unit/0.5 Ml Vial) 5,000 units SQ Q12 AMANDO Stop: 09/22/22 20:59 Last Admin: 08/27/22 09:47 Dose: 5,000 units Potassium Chloride (K Magan / Wtr) 10 meq in 100 mls @ 100 mls/hr IV Q1H AMANDO Stop: 08/27/22 11:44 Last Admin: 08/27/22 09:43 Dose: 100 mls/hr Lorazepam (Lorazepam 2 Mg/1 Ml Vial) 0.5 mg IM BID PRN PRN Reason: Agitation Stop: 09/25/22 12:53 Last Admin: 08/26/22 17:25 Dose: 0.5 mg Magnesium Hydroxide (Magnesium Hydroxide Susp 30 Ml Udc) 30 ml PO Q12H PRN PRN Reason: Constipation Stop: 09/21/22 14:56 Metoprolol Tartrate (Metoprolol Tartrate 25 Mg Tab) 25 mg PO BID [facility] Stop: 09/21/22 20:59 Last Admin: 08/23/22 08:34 Dose: 25 mg Miscellaneous (*Restasis*Order Awaiting Action) 1 each N/A QS [facility] Stop: 09/22/22 00:00 Last Admin: 08/27/22 07:01 Dose: Not Given Miscellaneous (Rivastigmine~Remove Patch) 1 each N/A DAILY@0859 [facility] Stop: 09/24/22 08:58 Last Admin: 08/27/22 09:48 Dose: 1 each Ondansetron HCl (Ondansetron Inj 2 Mg/Ml 2 Ml Vial) 4 mg IV Q6H PRN PRN Reason: Nausea Stop: 09/21/22 14:56 Polyethylene Glycol (Polyethylene (Miralax) 17 Gm Pack) 17 gm PO DAILY PRN PRN Reason: Constipation Stop: 09/21/22 14:56 Quetiapine Fumarate (Quetiapine Fumarate 25 Mg Tablet) 50 mg PO HS [facility] Stop: 09/25/22 20:59 Last Admin: 08/26/22 20:16 Dose: 50 mg Quetiapine Fumarate (Quetiapine Fumarate 25 Mg Tablet) 25 mg PO QAM [facility] Stop: 09/26/22 08:59 Rivastigmine (Rivastigmine 4.6 Mg/24 Hr Patch) 1 patch TD DAILY [facility] Stop: 09/23/22 12:39 Last Admin: 08/27/22 09:48 Dose: 1 patch Sertraline HCl (Sertraline Hcl 50 Mg Tablet) 25 mg PO HS [facility] Stop: 09/21/22 20:59 Last Admin: 08/26/22 20:45 Dose: 25 mg Sodium Chloride (Sodium Chloride 5% Op Soln 15 Ml Btl) 1 drops OP BID PRN PRN Reason: PAIN CONTROL Stop: 09/23/22 12:39 Last Admin: 08/27/22 09:48 Dose: 1 drops
[2022-08-27] MEDS: amLODIPine BESYLATE 5 MG TAB PO SCH (14:02)
[2022-08-27] MEDS: QUEtiapine FUMARATE 25 MG TABLET PO SCH ×2 (14:02→20:44)
[2022-08-27] MEDS: D5W AND LACTATED RINGERS 1,000 ML IV SCH (15:45)
[2022-08-27] MEDS: FLUTICASONE PROPIONATE NA SPR 16 GM BTL NAE SCH (20:42)
[2022-08-27] MEDS: SERTRALINE HCL 50 MG TABLET PO SCH (20:45)
[2022-08-27] MEDS: OLANZAPINE 2.5 MG TAB PO SCH (20:45)
[2022-08-28] MEDS: D5W AND LACTATED RINGERS 1,000 ML IV SCH (04:38)
[2022-08-28] MEDS: *RESTASIS*ORDER AWAITING ACTION SCH ×2 (07:01)
[2022-08-28 07:08] LABS: Basophils # (auto) 0.02 K/uL (0-0.2); Basophils % (auto) 0.4 %; Eosinophils # (auto) 0.24 K/uL (0-0.50); Hematocrit (blood only) 24.6 % (34.1-44.9); Hemoglobin 8.4 g/dl (12.0-16.0); Immature Granulocytes # (auto) 0.02 K/uL (0.00-0.02); Immature Granulocytes % (auto) 0.4 %; Lymphocytes # (auto) 0.68 K/uL (1.2-3.4); Lymphocytes % (auto) 14.1 %; Mean Corpuscular Hemoglobin 31.7 pg (25.0-34.0); Mean Corpuscular Hgb Conc 34.1 g/dL (32.0-36.0); Mean Corpuscular Volume 92.8 fL (80.0-100.0); Mean Platelet Volume 10.1 fL (9.4-12.3); Monocytes # (auto) 0.51 K/uL (0.24-0.82); Monocytes % (auto) 10.6 %; Neutrophils # (auto) 3.35 K/uL (1.4-6.5); Neutrophils % (auto) 69.5 %; Platelet Count 160 K/uL (130-400); RDW Coefficient of Variation 13.8 % (11.5-14.5); RDW Standard Deviation 46.7 fL (36.4-46.3); Red Blood Count 2.65 M/uL (3.93-5.22); White Blood Count 4.82 K/ul (4.8-10.8)
[2022-08-28 07:30] LABS: BUN Creatinine Ratio 11.2 (10-20); Calcium 8.3 mg/dl (8.5-10.1); Creatinine Clr Calc Pharmacy 31.7 ml/min; Est GFR (African American) 48.4 ml/min; Est GFR (Non-African American) 41.8 ml/min
[2022-08-28] MEDS: POTASSIUM CHLORIDE / WTR 10 MEQ/100 ML PLCT IV SCH ×4 (08:36→12:32)
--- NOTE | 2022-08-28 09:09 | Palliative Care Consultation ---
Date of Consultation August 28, 2022 Assessment & Plan (1) Palliative care encounter: (2) Discussion about advance care planning held with family member: I called Shannon Christianson tel [phone], she is patient's niece and POA. She shares with me that she very recently became the patient's POA because the patient's brother, who was also Shannon's father, and was the patient's POA recently had a stroke and is currently not able to be a POA for anyone. Shannon's mom/patient's [id number], is not involved in patient's care and is currently overwhelmed with her and his recovery from his stroke. He remains admitted as an acute inpatient stroke admission from outside hospital. Shannon states that patie nt has been steadily declining for some time. She had a fairly direct and detailed advanced directive that Shannon was able to review and she shares that patient did not want anything to prolong the dying process. She is not interested in any type of artificial nutrition or hydration. I advised her that I was in agreement, noting that artificial nutrition and hydration (GERDA) were originally developed to provide short-term support for patients who were acutely ill. For patients nearing/transitioning to EOL, GERDA is unlikely to prolong life in addition to which researchers have found that GERDA often leads to complications in patients nearing the end of life. Patients with advanced, life- limiting illness often lose the ability to eat and drink and/or interest in food and fluids. Like other medical interventions, it should be evaluated by weighing its benefits and burdens in light of the patient's clinical circumstances and goals of care. GERDA may offer benefits when administered in the setting of acute, reversible illness, or as a component of chronic disease management, when the patient can appreciate the benefits of the treatment and significant burdens are not disproportionate. Near the end of life, some widely assumed benefits of GERDA, such as alleviation of thirst, may be achieved by less invasive measures including good mouth care or providing ice chips. (Vivek YATES, Ben TOBINK, Nicholas Black. after PEG: Results of the National Confidential Enquiry into Patient Outcome and . Gastrointest Endosc. 2008;68:223-227andMeet E, Ashley D, Michael S, et al. Parenteral hydration in patients with advanced cancer: A multicenter, double-blind, placebo-controlled randomized trial. J Clin Oncol. 2013;31:111-118.) We then discussed additional facts about patient's mixed dementia: I reviewed that aggressive medical treatment for residents with advanced dementia is often inappropriate for medical reasons, has a low rate of success, and can have negative outcomes that hasten functional decline and . ( [place] [employer] Ethics Committee and Clinical Practice and Models of Care Committee. J Am Geriatr Soc. 2014 Aug;62(8):1590-3 and Khai SL, Odilia JM, Britt SC, Maximo V. A national study of the location of for older persons with dementia. J Am Geriatr Soc 2005; 53(2):299-305.) I reaffirmed that tube feeding in residents with advanced dementia does not increase survival. It does not prevent aspiration pneumonia, malnutrition or pressure ulcers. It does not reduce the risk of infections or improve functional status or comfort of the patient. (from: Joesph VERDUGO, Shahbaz T Percutaneous endoscopic gastrostomy does not prolong survival in patients with dementia. Arch Layup Worker Med 2003; 163(11):2182-8852 AND Cheyenne DE, Miguel STEFAN, Percy J, Jo Ann Castillo S, Javier RS. High short-term mortality in hospitalized patients with advanced dementia - Lack of benefit of tube feeding. Arch Layup Worker Med 2001; 161(4):594-599.) Simple strategies involving hands-on care by well-trained staff such as massage, oral hygiene, changes in diet, and hand-feeding -- can prevent infection and manage feeding problems without resort to tube-feeding. Tube feeding does not prevent aspiration pneumonia and might actually increase its incidence, and does not prevent the consequences of malnutrition Hand feeding can be provided until the beginning of the dying process when all physiological processes shut down, note that cognitively intact cancer patients indicate that dying residents do not feel hunger and thirst. Voluntary refusal of food and liquids is often initiated by hospice patients and does not result in discomfort I recommend hospice at SNF: Hospice is a valuable service for persons with advanced dementia, particularly in management of pain, continuous involvement of the primary physician, and avoidance of hospitalization. Social support provided to caregivers is also important given their high levels of depressive symptoms and anxiety. The goal of care for residents with advanced dementia is primarily maintenance of function and patient should not be transferred to an acute care setting because hospitalization results in decline of functional abilities that do not recover after [place] back [facility] [place] [facility] Will ask Care Mgt follow up to see if pt is eligible for hospice at SNF. Shannon shares that patient had been an inpatient at [facility] which is an [facility]. She is under a current perception per a conversation with me and with that patient cannot return there unless she recovers back to her preadmission baseline. She does not believe [facility] would be able to take patient back even if she were on hospice. Shannon also shares that she discussed these issues with her aunt, patient's sister, and they are in agreement that to honor the patient's wishes as outlined in her advanced directive and in keeping with her known expressed goals and personal desires for herself at the end of life, they feel that discharged to a local [place] [facility] with the addition of hospice for comfort care and end-of-life care for advanced dementia would be the best plan. They would like [facility] to be the facility that she is discharged to at this is their first choice. Shannon has shared this preference with care management. I discussed the plan of care moving forward to transition patient to comfort care, move her to a private room in the hospital, and work on fine-tuning her symptoms while waiting for placement to be ironed out. Shannon is in agreement. She does not want any artificial nutrition, calorie counts or any intervention that may prolong the dying process or add to any undue suffering. She does not want any additional labs or interventions. She is in agreement to stop all noncomfort oriented meds and interventions noting that patient should really be receiving what she needs to be comfortable at this point and have a peaceful end-of-life process. (3) Dementia with behavioral disturbance: In agreement with the following recommendations from psychiatry: Olanzapine 2.5mg ODT and IM ordered for acute agitation If frequent use of olanzapine is noted, would consider beginning a scheduled dose twice daily to assist in long-term management. If behavioral disturbances persist in spite of multiple rounds of medication management, Depo Haldol should be considered which would aid in hopefully controlling her symptoms/reducing her behavioral disturbance and also assisting with finding safe placement in the facility of the family's choice. (4) Mixed Alzheimer's and vascular dementia: Plan Patient's behavioral disturbances appear to be improving with the medication adjustments from psychiatry. It is hopeful that as the medication continues, patient may discontinue her one-to-one sitter. Family is aware that it will be difficult to find placement until the one-to-one sitter status is removed because this is not a condition that nursing homes can accommodate. Comfort care orders are written. I have updated the primary team, nursing and care management. Palliative medicine will continue to follow this patient. Darlene Whitman [facility] Clinical Director, Palliative Medicine History of Present Illness Reason for Consultation: " On 08/28/22 @ 07:17 Phillip Jacques Wrote To HollandEliza L. Advanced dementia, Goals of care. 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 Her last know ferry boat captain at SNF was 1.2 in January 2022. Nephro advised D5.5NS at 125ml/hr and daily BMP for prerenal nonoliguric Stage 2 MYKEL on CKD3. PMH: HTN, HLD, senile degeneration of the brain, and ductal carcinoma in situ of breast. Pt is not decisional due to very adv dementia; her POA and decision maker is currently her niece Shannon Christianson tel [phone] who advised admitting team that pt has been declining for 6 mos and there may be a living will which Shannon was trying to locate. Up until recently, pt's HCP was her brother but he has unfortunately suffered a stroke and is admitted at an OSH. So far this admission pt has been seen by nephro and psych. Psych has noted this is consistent with progressive dementia and recommended best supportive care and continued pharmacologic mgt of behav issues. 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 Allergies Allergy/AdvReac Type Severity Reaction Status Date / Time No Known Allergies Allergy Verified 08/22/22 15:35 Home Medications Medication Instructions Recorded Confirmed Type aspirin 81 mg tablet,delayed 81 mg PO DAILY 06/08/19 08/22/22 History release cholecalciferol (vitamin D3) 25 1,000 units PO DAILY 06/08/19 08/22/22 History mcg (1,000 unit) capsule lisinopril 40 mg tablet 40 mg PO DAILY #90 tabs 06/08/19 08/22/22 History atorvastatin 40 mg tablet 40 mg PO DAILY 04/01/20 08/22/22 History calcium carbonate 600 mg calcium 300 mg PO TID 04/01/20 08/22/22 History (1,500 mg) tablet cyclosporine 0.05 % eye drops 1 drops ophthalmic (eye) Q12H 04/01/20 08/22/22 History (Restasis MultiDose) fluticasone propionate 50 2 sprays intranasal QPM 04/01/20 08/22/22 History mcg/actuation nasal spray,suspension (Flonase Allergy Relief) sertraline 25 mg tablet 25 mg PO HS 04/01/20 08/22/22 History auajkzsszpg-rkvvnwdhx-hah C-Mn 500 2 cap PO DAILY 05/31/21 08/22/22 History mg-400 mg capsule saliva substitute combo no.9 1 ea mucous membrane BID 05/31/21 08/22/22 History (Biotene Dry Mouth Oral Rinse mouthwash) metoprolol tartrate 50 mg tablet 25 mg PO BID 06/05/21 08/22/22 History ketoconazole 2 % shampoo 1 applic topical .COMPLEX #120 mL 08/11/21 08/22/22 Rx rivastigmine 4.6 mg/24 hour 4.6 mg transdermal DAILY #30 ea 11/17/21 08/22/22 Rx transdermal patch quetiapine 25 mg tablet 25 mg PO HS 12/03/21 08/22/22 History betamethasone dipropionate 0.05 % 1 applic topical DAILY #60 mL 06/01/22 08/22/22 Rx lotion acetaminophen 325 mg tablet 650 mg PO Q6 PRN Fever Or Pain 08/22/22 08/22/22 History food supplemt, lactose-reduced 1 - 2 ea PO DAILY 08/22/22 08/22/22 History guaifenesin 600 mg tablet, 600 mg PO BID PRN cough/congestion 08/22/22 08/22/22 History extended release 12 hr (Mucinex) multivitamin (Daily-Marleny tablet) 1 tab PO DAILY 08/22/22 08/22/22 History omega-3 fatty acids 500 mg capsule 1,000 mg PO QAM 08/22/22 08/22/22 History omeprazole 20 mg capsule,delayed 20 mg PO DAILY 08/22/22 08/22/22 History release Patient History Medical History (Updated 08/28/22 @ 09:26 by Darlene Whitman DNP) Acute kidney injury 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) CKD (chronic kidney disease) stage 3, GFR 30-59 ml/min Dementia Depression Discussion about advance care planning held with family member GERD (gastroesophageal reflux disease) HTN (hypertension) Hypertension Mixed Alzheimer's and vascular dementia Mixed dyslipidemia Palliative care encounter Vertigo Surgical History History of cataract surgery Family History Mother Aortic aneurysm, ruptured Breast cancer Skin cancer Pancreatic cancer Father Lung cancer Social History Smoking Status: Former smoker Preferred Language: Guamanian Communication Ability: Unable 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 Beliefs That Will Affect Care: None Current Living Situation: Personal Care Facility Feels Safe at Home: Yes Assistive Devices: None Review of Systems Review of Systems: Unobtainable due to cognitive status Physical Exam Constitutional: WD/WN, vitals as above Eyes: PERRL, conjunctivae normal, anicteric sclerae ENMT: external ear and nose normal, oropharynx normal Neck: trachea midline, no thyromegaly Respiratory: normal respiratory effort, lungs clear to auscultation Cardiovascular: RRR, no murmur, no edema Gastrointestinal (Abdomen): normal bowel sounds, soft, nontender, no he patosplenomegaly mild distension Musculoskeletal: unable to assess/pt asleep Skin: + turgor decreased and + pallor Neurologic: Speech / Cognition: + abnormal cognition Results & Data ([facility]) Vital Signs (Past 12 Hours) Vital Signs Temp Pulse Resp BP Pulse Ox O2 Del Method 08/28/22 07:41 36.7 C 08/28/22 07:24 74 18 131/79 98 Room Air Laboratory Results labs and imaging reviewed PG Care Time/CCT Total # of Minutes Spent Total Time Spent: 70 Total Time Spent with Patient: Total time spent is greater than 50% in coordination of care (as documented) at patient's floor/unit and/or counseling patient: A total of 70 minutes was spent in the care and coordination of care for this patient today. 10 minutes was spent in chart review and discussion of patient's current status with both primary team and nursing. 20 minutes was spent at the bedside evaluating the patient. She is not decisional or able to participate meaningfully in the exam. 25 minutes was spent on the phone with patient's POA and niece providing a prolonged discussion about advance care planning, the goals of care, and a disposition plan for moving forward. 5 minutes was spent summarizing the plan and reviewing its elements with both the patient's POA as well as the medical teams. An additional 10 minutes was spent reviewing the consult summary and recommendations with the primary team, nursing and care management. Prolonged Care Time Prolonged Care Time: Yes Advanced Care Planning 77050 Advanced Care Planning 30 [place] [address] Inpt Consult Level 5 Patient Type New History Detailed Exam Detailed Medical Decision Making Moderate Complexity Diagnoses Palliative care encounter Z51.5 Discussion about advance care planning held with family member Z71.0 Dementia with behavioral disturbance F03.918 Mixed Alzheimer's and vascular dementia G30.9; F01.50; F02.80 Additional Codes Prolonged Care Time - Prolonged Care Time: Yes ([id number]) Advanced Care Planning - 49163 Advanced Care Planning 30 Min: 10273 Advanced Care Planning 30 Min ([id number])
[2022-08-28] MEDS: amLODIPine BESYLATE 5 MG TAB PO SCH (10:11)
[2022-08-28] MEDS: OLANZAPINE 2.5 MG TAB PO SCH ×3 (10:11→20:46)
[2022-08-28] MEDS: SODIUM CHLORIDE 5% OP SOLN 15 ML BTL OP PRN (10:12)
[2022-08-28] MEDS: RIVASTIGMINE REMOVE SCH (10:12)
[2022-08-28] MEDS: QUEtiapine FUMARATE 25 MG TABLET PO SCH ×3 (10:12→20:46)
[2022-08-28] MEDS: BETAMETHASONE DIPROPIONATE 0.05% EXT SCH (10:12)
[2022-08-28] MEDS: HEPARIN SOD 5,000 UNIT/0.5 ML VIAL SQ SCH (10:13)
--- NOTE | 2022-08-28 11:52 | Hospitalist Progress Note ---
Date of Service August 28, 2022 Assessment & Plan (1) Acute kidney injury: (2) Dementia: (3) HTN (hypertension): (4) GERD (gastroesophageal reflux disease): (5) Depression: Plan 77-year-[facility] status. Potassium 6.7, creatinine 3.54. Baseline creatinine from -. nephrology consult. Will place on HCO3 gtt as recommended by Nephrology. Pre-Renal Acute kidney injury: Hyperkalemia Dehydration: [facility] with altered mental status. Creatinine found to be 3.5. Baseline creatinine of 1.2 in January. Potassium was 6.7 on admission; received calcium gluconate and insulin. FENa of 0.9% suggestive of prerenal cause Creatinine normalized with IV hydration. Potassium normalized Plan; -Cr downtrended near to baseline; currently on D5 half NS due to poor oral intake. Will wean off fluid as patient is drinking more fluid and is eating. -Jackson discontinued; voiding by herself. -Continue to hold YOU ;will resume if creatinine continues to stabilize. -Avoid nephrotoxic agent Possible urinary tract infection Urinalysis shows 3+ leukocyte esterase, WBC count of 10-30 Urinalysis culture gram-positive cocci with 8000 colonies per high-power field DC antibiotics Dementia with behavioral disturbance: Per resident home overall decline since January both cognitively and functionally Patient was able to ambulate and eat independently at baseline, but unsure on intake Resident home indicates patient is becoming more incontinent and having decreased oral intake TSH wnl Vitamin B12 wnl Plan; Psych consulted; appreciate reccs. Seroquel dose increased at night, seroquel 25mg added in am. - Also on IM Zyprexa as needed. - currently 1:1 -Palliative care consulted as per recommendation by psychiatry; patient appears to have advanced dementia. HTN: Lisinopril on hold due to MYKEL Metoprolol currently on hold due to sinus bradycardia. Will start on amlodipine if she continues to be hypertensive. GERD: Takes Omeprazole; continue Depression: Takes Sertraline; continue Disposition: PCP: Janet Zuluaga/Dr. Kendrick CODE STATUS: DNR/DNI Next of Kin: Shannon Christianson (niece) [phone]. VTE prophylaxis: Heparin Dispositionpatient came from long-term rehab. In order to get discharged back, patient needs to be able to be back to her baseline status ADL mo. Will need PT OT evaluation. OT evaluated the patient and recommends patient is indep endent. Awaiting PT evaluation. Also, try to triate her psych medications as recommended by psych to control her behavioral disturbances. Palliative care also consulted for advanced dementia. Admission and Anticipated Discharge Date Admission Date: August 22, 2022 Subjective Patient seen and examined at bedside. She is lying in the bed comfortably; will intermittently open her eyes to verbal stimuli. Patient was intermittently awake as per RN; was more cooperative compared to previous days. Review of Systems Review of Systems: All systems reviewed & are unremarkable except as noted in Subjective Physical Exam Physical Exam: Constitutional: Sleepy but awake able by voice; not in distress. Respiratory: normal respiratory effort, lungs clear to auscultation, no wheeze, rales, rhonchi. Normal insp/exp effort, no accessory muscle use Cardiovascular: RRR, no murmur, no edema Vessels: no JVD or carotid bruit Chest: normal inspection of chest Abdomen: normal bowel sounds, soft, nontender, no hepatosplenomegaly Musculoskeletal: no cyanosis or clubbing, extremities motor strength 5/5 Skin: no rashes, warm and dry normal turgor Neurologic: PERRL, EOMI, accommodation nl, no face palsy, no dysarthria CN's II- XI intact bilaterally and moves all extremities Psychiatric: Has history of dementia. Needs frequent redirection. Lymphatic: no cervical or axillary lymphadenopathy : deferred Results & Data Results & Data ([facility]) Vital Signs (Past 12 Hours) Vital Signs Temp Pulse Resp BP Pulse Ox O2 Del Method 08/28/22 07:41 36.7 C 08/28/22 07:24 74 18 131/79 98 Room Air Laboratory Results Laboratory Results WBC 4.82 K/ul (4.8-10.8) 08/28/22 06:31 RBC 2.65 M/uL (3.93-5.22) L 08/28/22 06:31 Hgb 8.4 g/dl (12.0-16.0) L 08/28/22 06:31 Hct 24.6 % (34.1-44.9) L 08/28/22 06:31 MCV 92.8 fL (80.0-100.0) 08/28/22 06:31 MCH 31.7 pg (25.0-34.0) 08/28/22 06:31 MCHC 34.1 g/dL (32.0-36.0) 08/28/22 06:31 RDW Std Deviation 46.7 fL (36.4-46.3) H 08/28/22 06:31 RDW Coeff of Javier 13.8 % (11.5-14.5) 08/28/22 06:31 Plt Count 160 K/uL (130-400) 08/28/22 06:31 MPV 10.1 fL (9.4-12.3) 08/28/22 06:31 Immature Gran % (Auto) 0.4 % 08/28/22 06:31 Neut % (Auto) 69.5 % 08/28/22 06:31 Lymph % (Auto) 14.1 % 08/28/22 06:31 [place] % (Auto) 10.6 % 08/28/22 06:31 Eos % (Auto) 5.0 % 08/28/22 06:31 Baso % (Auto) 0.4 % 08/28/22 06:31 Neut # (Auto) 3.35 K/uL (1.4-6.5) 08/28/22 06:31 Lymph # (Auto) 0.68 K/uL (1.2-3.4) L 08/28/22 06:31 [place] # (Auto) 0.51 K/uL (0.24-0.82) 08/28/22 06:31 Eos # (Auto) 0.24 K/uL (0-0.50) 08/28/22 06:31 Baso # (Auto) 0.02 K/uL (0-0.2) 08/28/22 06:31 Immature Gran # (Auto) 0.02 K/uL (0.00-0.02) 08/28/22 06:31 Sodium 141 mmol/L (136-145) 08/28/22 06:31 Potassium 3.0 mmol/L (3.5-5.1) L 08/28/22 06:31 Chloride 113 mmol/L (98-107) H 08/28/22 06:31 Carbon Dioxide 22 mmol/L (21-32) 08/28/22 06:31 Anion Gap 6 (3-11) 08/28/22 06:31 BUN 14 mg/dl (6-23) 08/28/22 06:31 Creatinine 1.25 mg/dl (0.6-1.2) H 08/28/22 06:31 Est Cr Clr Drug Dosing 31.7 ml/min 08/28/22 06:31 Est GFR ( Amer) 48.4 ml/min 08/28/22 06:31 Est GFR (Non-Af Amer) 41.8 ml/min 08/28/22 06:31 BUN/Creatinine Ratio 11.2 (10-20) 08/28/22 06:31 Glucose 130 mg/dl (70-99(Fasting)) H 08/28/22 06:31 POC Glucose 138 mg/dl (70-99) H 08/22/22 16:24 Calcium 8.3 mg/dl (8.5-10.1) L 08/28/22 06:31 Phosphorus 3.4 mg/dl (2.5-4.9) 08/23/22 04:45 Magnesium 2.0 mg/dl (1.7-2.4) 08/23/22 04:45 Total Bilirubin 0.5 mg/dl (0.2-1.0) 08/27/22 06:25 AST 69 U/L (13-39) H 08/27/22 06:25 ALT 36 U/L (7-52) 08/27/22 06:25 Alkaline Phosphatase 71 U/L (34-104) 08/27/22 06:25 Troponin I High Sens 2.9 pg/ml (0-14) 08/22/22 10:55 Total Protein 6.3 gm/dl (6.0-8.3) 08/27/22 06:25 Albumin 3.4 gm/dl (3.4-5.0) 08/27/22 06:25 Globulin 2.9 gm/dl (2.5-4.0) 08/27/22 06:25 Albumin/Globulin Ratio 1.2 (0.9-2) 08/27/22 06:25 Vitamin B12 963 pg/ml (180-914) H 08/27/22 06:25 Procalcitonin 0.13 ng/ml (0-0.5) 08/23/22 04:45 TSH 3.150 uIu/ml (0.300-4.500) 08/27/22 06:25 Urine Color Yellow 08/22/22 11:10 Urine Appearance Clear (Clear) 08/22/22 11:10 Urine pH 6.5 (4.5-7.5) 08/22/22 11:10 Ur Specific [place] 1.014 (1.000-1.030) 08/22/22 11:10 Urine Protein Negative (Negative) 08/22/22 11:10 Urine Glucose (UA) Negative (Negative) 08/22/22 11:10 Urine Ketones Negative (Negative) 08/22/22 11:10 Urine Blood Negative (Negative) 08/22/22 11:10 Urine Nitrite Negative (Negative) 08/22/22 11:10 Urine Bilirubin Negative (Negative) 08/22/22 11:10 Urine Urobilinogen Negative (Negative) 08/22/22 11:10 Ur Leukocyte Esterase 3+ (Negative) H 08/22/22 11:10 Urine WBC (Auto) 10-30 /hpf (0-5) H 08/22/22 11:10 Urine RBC (Auto) 0-4 /hpf (0-4) 08/22/22 11:10 U Hyaline Cast (Auto) 1-5 /lpf (0-5) 08/22/22 11:10 U Epithel Cells (Auto) >30 /lpf (0-5) H 08/22/22 11:10 Urine Bacteria (Auto) Negative (Negative) 08/22/22 11:10 Ur Renal Epithelial Cell 0-5 /lpf (0-5) 08/22/22 11:10 Urine Osmolality 431 mOsm/kg (500-800) L 08/22/22 11:10 Ur Random Creatinine 83.1 mg/dl 08/22/22 11:10 U Random Total Protein 22.9 mg/dl (0-11.9) H 08/22/22 11:10 Ur Random Sodium 29 mmol/L 08/22/22 11:10 Protein/Creatinin Ratio 0.3 (0-0.2) H 08/22/22 11:10 Nasal Screen MRSA (PCR) Negative (Negative) 08/22/22 19:00 Adenovirus (PCR) Not Detected (NotDetected) 08/22/22 11:10 B. pertussis DNA (PCR) Not Detected (NotDetected) 08/22/22 11:10 B.parapertussis DNA PCR Not Detected (NotDetected) 08/22/22 11:10 C. pneumoniae DNA (PCR) Not Detected (NotDetected) 08/22/22 11:10 Coronavirus OC43 (PCR) Not Detected (NotDetected) 08/22/22 11:10 Coronavirus HKU1 (PCR) Not Detected (NotDetected) 08/22/22 11:10 Coronavirus 229E (PCR) Not Detected (NotDetected) 08/22/22 11:10 SARS-CoV-2 (PCR) Not Detected (NotDetected) 08/22/22 11:10 Coronavirus NL63 (PCR) Not Detected (NotDetected) 08/22/22 11:10 Human Metapneumovir PCR Not Detected (NotDetected) 08/22/22 11:10 Influenza Type A (PCR) Not Detected (NotDetected) 08/22/22 11:10 Influenza Type B (PCR) Not Detected (NotDetected) 08/22/22 11:10 M. pneumoniae (PCR) Not Detected (NotDetected) 08/22/22 11:10 Parainfluenza 1 (PCR) Not Detected (NotDetected) 08/22/22 11:10 Parainfluenza 2 (PCR) Not Detected (NotDetected) 08/22/22 11:10 Parainfluenza 3 (PCR) Not Detected (NotDetected) 08/22/22 11:10 Parainfluenza 4 (PCR) Not Detected (NotDetected) 08/22/22 11:10 RSV (PCR) Not Detected (NotDetected) 08/22/22 11:10 Entero/Rhino (PCR) Not Detected (NotDetected) 08/22/22 11:10 Impressions Chest X-Ray 08/22/22 11:07 XR chest 1V portable CLINICAL HISTORY: weakness COMPARISON STUDY: Chest radiograph December 03, 2021. FINDINGS: Lung volumes are normal. Lungs are clear. There is no pneumothorax or pleural effusion. Cardiac size is normal. Mediastinal contours are normal. There is no evidence for pulmonary edema. Mild interstitial thickening is unchanged and likely chronic IMPRESSION: No acute cardiopulmonary findings. No significant change in appearance of the chest. Interstitial thickening, likely chronic. ACT 112: Negative or not required by law. Electronically signed by: Yuval Arredondo M.D. 08/22/2022 11:[address] 08/22/22 11:07 CT OF THE HEAD WITHOUT CONTRAST CLINICAL HISTORY: Confusion. COMPARISON STUDY: Head CT December 03, 2021 and MRI of the brain June 21, 2017. TECHNIQUE: Helical axial images of the head were obtained without IV contrast. Automated exposure control was utilized for the study. A dose lowering technique was utilized adhering to the principles of ALARA. FINDINGS: No acute intracranial hemorrhage, midline shift or mass effect is present. The bladder hypodensity suggests small vessel disease. The appearance of brain is unchanged. The ventricular system is unremarkable. The basal cisterns are patent. No extra-axial collections are present. There are no findings to suggest acute dural sinus thrombosis or acute territorial infarct. No significant calvarial abnormalities are present. Visualized portions of the sinuses and mastoid air cells are clear. Multiple sites of venous gas are noted. IMPRESSION: No acute intracranial findings. ACT 112: Negative or not required by law. Electronically signed by: Yuval Arredondo M.D. 08/22/2022 1:32 PM Hip/Pelvis X-Ray 08/22/22 11:07 XR hips DASHAWN 1v w pelvis CLINICAL HISTORY: ?fall COMPARISON: Pelvis radiograph December 04, 2021. FINDINGS: Sacroiliac joints and symphysis pubis are intact. There is no acute fracture within the pelvis or hips. Hip joint spaces are preserved. IMPRESSION: No acute fracture within the pelvis or hips. ACT 112: Negative or not required by law. Electronically signed by: Yuval Arredondo M.D. 08/22/2022 11:42 AM Abdomen/Pelvis CT 08/22/22 11:59 CT OF THE ABDOMEN AND PELVIS WITHOUT CONTRAST CLINICAL HISTORY: Acute renal failure. COMPARISON STUDY: No previous studies for comparison. TECHNIQUE: Axial images of the abdomen and pelvis were obtained without IV contrast. Images were reviewed in the axial, sagittal, and coronal planes. Automated exposure control was utilized for the study. A dose lowering technique was utilized adhering to the principles of ALARA. FINDINGS: Postoperative findings within the right breast are noted. This exam is mildly compromised by artifact. No pneumatosis, free air or portal venous gas is present. A 1.2 cm water attenuation lateral segment hepatic lesion favors a cyst. There is no biliary or pancreatic ductal dilatation dictation. Unenhanced images of the spleen, adrenal glands and pancreas are unremarkable. There is no hydronephrosis. No urinary calculi are present. There is trace bilateral perinephric stranding. There is no evidence for a bowel obstruction. No ascites or lymphadenopathy is present. There are no acute fractures within the visualized skeletal structures. Moderate plaque of the abdominal aorta and branch vessels is present. IMPRESSION: 1. No urinary calculi or hydronephrosis. Trace bilateral perinephric stranding which could be correlated with urinalysis. 2. No acute process within the abdomen or pelvis on unenhanced exam. Exam mildly compromised by artifact. 3. No bowel obstruction. ACT 112: Negative or not required by law. Electronically signed by: Yuval Arredondo M.D. 08/22/2022 1:38 PM
[2022-08-28] MEDS ORDERED: LORazepam 2 MG/1 ML VIAL IV PRN (16:45)
[2022-08-28] MEDS ORDERED: ATROPINE SULFATE 1% OP SOLN 5 ML BTL SL PRN (16:45)
[2022-08-28] MEDS ORDERED: MoRPHine SULFATE 10 MG/0.5 ML UDP PO PRN (16:45)
[2022-08-28] MEDS: SERTRALINE HCL 50 MG TABLET PO SCH ×2 (20:03→20:46)
[2022-08-28] MEDS: FLUTICASONE PROPIONATE NA SPR 16 GM BTL NAE SCH ×2 (20:03→20:46)
[2022-08-29 06:58] LABS: Basophils # (auto) 0.04 K/uL (0-0.2); Basophils % (auto) 0.7 %; Eosinophils # (auto) 0.26 K/uL (0-0.50); Eosinophils % (auto) 4.8 %; Hematocrit (blood only) 28.5 % (34.1-44.9); Hemoglobin 9.6 g/dl (12.0-16.0); Immature Granulocytes # (auto) 0.02 K/uL (0.00-0.02); Immature Granulocytes % (auto) 0.4 %; Lymphocytes # (auto) 0.91 K/uL (1.2-3.4); Lymphocytes % (auto) 16.9 %; Mean Corpuscular Hemoglobin 31.3 pg (25.0-34.0); Mean Corpuscular Hgb Conc 33.7 g/dL (32.0-36.0); Mean Corpuscular Volume 92.8 fL (80.0-100.0); Mean Platelet Volume 9.5 fL (9.4-12.3); Neutrophils # (auto) 3.44 K/uL (1.4-6.5); Neutrophils % (auto) 64.2 %; Platelet Count 183 K/uL (130-400); RDW Coefficient of Variation 13.5 % (11.5-14.5); RDW Standard Deviation 45.4 fL (36.4-46.3); Red Blood Count 3.07 M/uL (3.93-5.22); White Blood Count 5.37 K/ul (4.8-10.8)
[2022-08-29] MEDS: RIVASTIGMINE REMOVE SCH (07:52)
[2022-08-29] MEDS: OLANZAPINE 2.5 MG TAB PO SCH ×2 (07:58→21:44)
[2022-08-29] MEDS: amLODIPine BESYLATE 5 MG TAB PO SCH (07:58)
[2022-08-29 07:59] LABS: BUN Creatinine Ratio 10.3 (10-20); Calcium 9.1 mg/dl (8.5-10.1); Creatinine Clr Calc Pharmacy 31.4 ml/min; Est GFR (African American) 47.9 ml/min; Est GFR (Non-African American) 41.4 ml/min; Potassium 3.3 mmol/L (3.5-5.1)
[2022-08-29] MEDS: QUEtiapine FUMARATE 25 MG TABLET PO SCH ×2 (07:59→21:40)
[2022-08-29] MEDS: BETAMETHASONE DIPROPIONATE 0.05% EXT SCH (07:59)
--- NOTE | 2022-08-29 13:46 | Hospitalist Progress Note ---
Date of Service August 29, 2022 Assessment & Plan (1) Acute kidney injury: (2) Dementia: (3) HTN (hypertension): (4) GERD (gastroesophageal reflux disease): (5) Depression: Plan 77-year-old presents from long-term nursing home with altered mental status. Potassium 6.7, creatinine 3.54. Baseline creatinine from -.[address] on HCO3 gtt as recommended by Nephrology. Pre-Renal Acute kidney injury: Hyperkalemia Dehydration: Presented from long-term nursing home with altered mental status. Creatinine found to be 3.5. Baseline creatinine of 1.2 in January. Potassium was 6.7 on admission; received calcium gluconate and insulin. FENa of 0.9% suggestive of prerenal cause Creatinine normalized to baseline 1.3 with IV hydration. Potassium normalized -Cr downtrended near to baseline; currently on D5 half NS due to poor oral intake. COnt eating and drinking as desired. -Jackson discontinued; voiding by herself. -comfort care measures at this point. Possible urinary tract infection Urinalysis shows 3+ leukocyte esterase, WBC count of 10-30 Urinalysis culture gram-positive cocci with 8000 colonies per high-power field antibiotics were stopped as patient is now on comfort care measures. Dementia with behavioral disturbance: Per resident home overall decline since January both cognitively and functionally Psych consulted; Seroquel dose increased at night, seroquel 25mg added in am. - Also on IM Zyprexa as needed. -palliative care consulted and transitioned to comfort care. HTN: Lisinopril on hold due to MYKEL Metoprolol currently on hold due to sinus bradycardia. Disposition: PCP: Janet Zuluaga/Dr. Kendrick CODE STATUS: DNR/DNI Next of Kin: Shannon Christianson (niece) [phone]. Dispo-hospice care. DO Kyle Schafer Hospitalist Admission and Anticipated Discharge Date Admission Date: August 22, 2022 Subjective 77 yo F admitted from [facility] 2/2 worsened confusion. There has been a gradual decline since . Acute renal failure with hyperkalemia was seen on workup. Lisinopril was held and nephrology started bicarbonate drip. Antibiotics were started for possible UTI. After discussion with palliative regarding goals of care, comfort care was initiated. The patient remains confused and delirious, but doesnt appear in any acute distress. Review of Systems Review of Systems: Cannot obtain 2/2 delirium Physical Exam Physical Exam: CONSTITUTIONAL: WNWD, vitals as above, generally well- appearing, delirious, unable to follow instructions. Fidgeting with her blanket. EYES: normal conjunctivae, no scleral icterus ENT: external ear and nose normal, MMM NECK: trachea midline RESPIRATORY: clear to auscultation bilaterally, no crackles, rales or wheezes, normal respiratory effort CARDIOVASCULAR: regular rate and rhythm, S1 and 2 heard without murmurs, gallops or rubs, no JVD, no peripheral edema CHEST: inspection of chest was normal GASTROINTESTINAL: soft, nontender, ND, no guarding MUSCULOSKELETAL: moves all extremities equally, no gross focal deficits observed. SKIN: warm and dry NEUROLOGIC: awake and unccoperative with exam, however, she has no gross focal neurologic deficits that are observed. Speech intact. PSYCHIATRIC: alert, confused and disoriented. Cannot follow instructions or answer questions appropriately. Results & Data Results & Data ([facility]) Vital Signs (Past 12 Hours) Vital Signs Temp Pulse Resp BP Pulse Ox O2 Del Method 08/29/22 07:45 36.2 C L 97 H 17 139/86 98 Room Air Laboratory Results Short CBC 08/29/22 Range/Units 06:43 WBC 5.37 (4.8-10.8) K/ul Hgb 9.6 L (12.0-16.0) g/dl Hct 28.5 L (34.1-44.9) % Plt Count 183 (130-400) K/uL BMP 08/29/22 06:43 Sodium 143 Potassium 3.3 L Chloride 111 H Carbon Dioxide 23 BUN 13 Creatinine 1.26 H Glucose 87 Calcium 9.1 Medications Administered Current Inpatient Medications Acetaminophen (Acetaminophen 325 Mg Tab) 650 mg PO Q4H PRN PRN Reason: Pain or Fever Stop: 09/21/22 14:56 Last Admin: 08/26/22 04:01 Dose: 650 mg Al Hydrox/Mg Hydrox/Simethicone (Aluminum/Magnesium Susp 30 Ml Udc) 15 ml PO Q4H PRN PRN Reason: Dyspepsia Stop: 09/21/22 14:56 Amlodipine Besylate (Amlodipine Besylate 5 Mg Tab) 5 mg PO QAM AMANDO Stop: 09/26/22 10:29 Last Admin: 08/29/22 07:58 Dose: Not Given Atropine Sulfate (Atropine Sulfate 1% Op Soln 5 Ml Btl) 4 drops SL Q1H PRN PRN Reason: Secretions or pulm congestion Stop: 09/27/22 16:44 Betamethasone Dipropionate (Betamethasone Dipropionate Lotion 0.05% 60 Ml Btl) 1 appln EXT DAILY [facility] Stop: 09/23/22 12:39 Last Admin: 08/29/22 07:59 Dose: 1 appln Fluticasone Propionate (Fluticasone Propionate Na Spr 16 Gm Btl) 2 sprays ECHO Q PM [facility] Stop: 09/21/22 20:59 Last Admin: 08/28/22 20:46 Dose: Not Given Lorazepam (Lorazepam 2 Mg/1 Ml Vial) 0.5 mg IV Q4H PRN PRN Reason: Anxiety/Agitation Stop: 09/27/22 16:44 Last Admin: 08/28/22 23:52 Dose: 0.5 mg Magnesium Hydroxide (Magnesium Hydroxide Susp 30 Ml Udc) 30 ml PO Q12H PRN PRN Reason: Constipation Stop: 09/21/22 14:56 Metoprolol Tartrate (Metoprolol Tartrate 25 Mg Tab) 25 mg PO BID [facility] Stop: 09/21/22 20:59 Last Admin: 08/23/22 08:34 Dose: 25 mg Miscellaneous (*Restasis*Order Awaiting Action) 1 each N/A QS [facility] Stop: 09/22/22 00:00 Last Admin: 08/28/22 07:01 Dose: Not Given Miscellaneous (Rivastigmine~Remove Patch) 1 each N/A DAILY@0859 [facility] Stop: 09/24/22 08:58 Last Admin: 08/29/22 07:52 Dose: 1 each Morphine Sulfate (Morphine Sulfate 10 Mg/0.5 Ml Udp) 5 mg PO Q1H PRN PRN Reason: Pain or Respiratory Distress Stop: 09/11/22 16:44 Olanzapine (Olanzapine 2.5 Mg Tab) 2.5 mg PO BID [facility] Stop: 09/26/22 20:59 Last Admin: 08/29/22 07:58 Dose: 2.5 mg Olanzapine (Olanzapine 10 Mg/2.1 Ml Sdv) 2.5 mg IM QID PRN PRN Reason: Agitation Stop: 09/26/22 10:28 Last Admin: 08/28/22 20:47 Dose: 2.5 mg Olanzapine (Olanzapine Zydis 5 Mg Orally Dis. Tab) 2.5 mg PO QID PRN PRN Reason: Agitation Stop: 09/26/22 12:59 Quetiapine Fumarate (Quetiapine Fumarate 25 Mg Tablet) 50 mg PO HS [facility] Stop: 09/25/22 20:59 Last Admin: 08/28/22 20:46 Dose: Not Given Quetiapine Fumarate (Quetiapine Fumarate 25 Mg Tablet) [facility] Stop: 09/26/22 08:59 Last Admin: 08/29/22 07:59 Dose: 25 mg Sertraline HCl (Sertraline Hcl 50 Mg Tablet) 25 mg PO HS [facility] Stop: 09/21/22 20:59 Last Admin: 08/28/22 20:46 Dose: Not Given Sodium Chloride (Sodium Chloride 5% Op Soln 15 Ml Btl) 1 drops OP BID PRN PRN Reason: PAIN CONTROL Stop: 09/23/22 12:39 Last Admin: 08/28/22 10:12 Dose: 1 drops
[2022-08-29] MEDS: FLUTICASONE PROPIONATE NA SPR 16 GM BTL NAE SCH (21:43)
[2022-08-29] MEDS: SERTRALINE HCL 50 MG TABLET PO SCH (21:43)
[2022-08-30] MEDS: CLOTRIMAZOLE 10 MG TROCHE BUCCAL SCH ×6 (00:57→22:26)
[2022-08-30] MEDS: amLODIPine BESYLATE 5 MG TAB PO SCH (09:55)
[2022-08-30] MEDS: RIVASTIGMINE REMOVE SCH (09:55)
[2022-08-30] MEDS: QUEtiapine FUMARATE 25 MG TABLET PO SCH ×2 (09:56→20:27)
[2022-08-30] MEDS: BETAMETHASONE DIPROPIONATE 0.05% EXT SCH (09:56)
[2022-08-30] MEDS: OLANZAPINE 2.5 MG TAB PO SCH ×2 (09:56→20:28)
--- NOTE | 2022-08-30 17:47 | Hospitalist Progress Note ---
Date of Service August 30, 2022 Assessment & Plan (1) Acute kidney injury: (2) Dementia: (3) HTN (hypertension): (4) GERD (gastroesophageal reflux disease): (5) Depression: Plan 77-year-old presents from long-term assisted with altered mental status. Potassium 6.7, creatinine 3.54. Baseline creatinine from -.[address] on HCO3 gtt as recommended by Nephrology. Pre-Renal Acute kidney injury: Hyperkalemia Dehydration: Presented from long-term assisted with altered mental status. Creatinine found to be 3.5. Baseline creatinine of 1.2 in January. Potassium was 6.7 on admission; received calcium gluconate and insulin. FENa of 0.9% suggestive of prerenal cause Creatinine normalized to baseline 1.3 with IV hydration. Potassium normalized -Cr downtrended near to baseline; currently on D5 half NS due to poor oral intake. COnt eating and drinking as desired. -Jackson discontinued; voiding by herself. -comfort care measures at this point. Possible urinary tract infection Urinalysis shows 3+ leukocyte esterase, WBC count of 10-30 Urinalysis culture gram-positive cocci with 8000 colonies per high-power field antibiotics were stopped as patient is now on comfort care measures. Dementia with behavioral disturbance: Per resident home overall decline since January both cognitively and functionally Psych consulted; Seroquel dose increased at night, seroquel 25mg added in am. - Also on IM Zyprexa as needed. -palliative care consulted and transitioned to comfort care. HTN: Lisinopril on hold due to MYKEL Metoprolol currently on hold due to sinus bradycardia. Disposition: PCP: Janet Zuluaga/Dr. Kendrick CODE STATUS: DNR/DNI Next of Kin: Shannon Christianson (niece) [phone]. Dispo-hospice care. DO Kyle Schafer Hospitalist Admission and Anticipated Discharge Date Admission Date: August 22, 2022 Subjective 77 yo F admitted from [facility] 2/2 worsened confusion. There has been a gradual decline since . Acute renal failure with hyperkalemia was seen on workup. Lisinopril was held and nephrology started bicarbonate drip. Antibiotics were started for possible UTI. After discussion with palliative regarding goals of care, comfort care was initiated. The patient remains confused and delirious, but doesnt appear in any acute distress. Asking me to help her get out of bed today. Encouraged her not to do that. Review of Systems Review of Systems: Cannot obtain 2/2 delirium Physical Exam Physical Exam: CONSTITUTIONAL: WNWD, vitals as above, generally well- appearing, delirious, unable to follow instructions. Fidgeting with her blanket. EYES: normal conjunctivae, no scleral icterus ENT: external ear and nose normal, MMM NECK: trachea midline RESPIRATORY: clear to auscultation bilaterally, no crackles, rales or wheezes, normal respiratory effort CARDIOVASCULAR: regular rate and rhythm, S1 and 2 heard without murmurs, gallops or rubs, no JVD, no peripheral edema CHEST: inspection of chest was normal GASTROINTESTINAL: soft, nontender, ND, no guarding MUSCULOSKELETAL: moves all extremities equally, no gross focal deficits observed. SKIN: warm and dry, multiple well healed circular bruises noted on her legs bilaterally NEUROLOGIC: awake and unccoperative with exam, however, she has no gross focal neurologic deficits that are observed. Speech intact. PSYCHIATRIC: alert, confused and disoriented. Cannot follow instructions or answer questions appropriately. Results & Data Results & Data ([facility]) Vital Signs (Past 12 Hours) Vital Signs Temp Pulse Resp BP BP Pulse Ox O2 Del Method 08/30/22 16:20 37.2 C 88 18 100/61 96 Room Air 08/30/22 15:36 37.2 C 94 H 20 99/64 L 96 Room Air 08/30/22 07:38 36.9 C 100 H 19 126/74 96 Room Air Medications Administered Current Inpatient Medications Acetaminophen (Acetaminophen 325 Mg Tab) 650 mg PO Q4H PRN PRN Reason: Pain or Fever Stop: 09/21/22 14:56 Last Admin: 08/26/22 04:01 Dose: 650 mg Al Hydrox/Mg Hydrox/Simethicone (Aluminum/Magnesium Susp 30 Ml Udc) 15 ml PO Q4H PRN PRN Reason: Dyspepsia Stop: 09/21/22 14:56 Amlodipine Besylate (Amlodipine Besylate 5 Mg Tab) 5 mg PO QAM AMANDO Stop: 09/26/22 10:29 Last Admin: 08/30/22 09:55 Dose: 5 mg Atropine Sulfate (Atropine Sulfate 1% Op Soln 5 Ml Btl) 4 drops SL Q1H PRN PRN Reason: Secretions or pulm congestion Stop: 09/27/22 16:44 Betamethasone Dipropionate (Betamethasone Dipropionate Lotion 0.05% 60 Ml Btl) 1 appln EXT DAILY [facility] Stop: 09/23/22 12:39 Last Admin: 08/30/22 09:56 Dose: 1 appln Clotrimazole (Clotrimazole 10 Mg Michelle) 10 mg BUCCAL [id number] [facility] Stop: 09/29/22 00:00 Last Admin: 08/30/22 15:57 Dose: 10 mg Fluticasone Propionate (Fluticasone Propionate Na Spr 16 Gm Btl) 2 sprays ECHO QPM [facility] Stop: 09/21/22 20:59 Last Admin: 08/29/22 21:43 Dose: 2 sprays Lorazepam (Lorazepam 2 Mg/1 Ml Vial) 0.5 mg IV Q4H PRN PRN Reason: Anxiety/Agitation Stop: 09/27/22 16:44 Last Admin: 08/28/22 23:52 Dose: 0.5 mg Magnesium Hydroxide (Magnesium Hydroxide Susp 30 Ml Udc) 30 ml PO Q12H PRN PRN Reason: Constipation Stop: 09/21/22 14:56 Metoprolol Tartrate (Metoprolol Tartrate 25 Mg Tab) 25 mg PO BID [facility] Stop: 09/21/22 20:59 Last Admin: 08/23/22 08:34 Dose: 25 mg Miscellaneous (*Restasis*Order Awaiting Action) 1 each N/A QS [facility] Stop: 09/22/22 00:00 Last Admin: 08/28/22 07:01 Dose: Not Given Miscellaneous (Rivastigmine~Remove Patch) 1 each N/A DAILY@0859 [facility] Stop: 09/24/22 08:58 Last Admin: 08/30/22 09:55 Dose: 1 each Morphine Sulfate (Morphine Sulfate 10 Mg/0.5 Ml Udp) 5 mg PO Q1H PRN PRN Reason: Pain or Respiratory Distress Stop: 09/11/22 16:44 Olanzapine (Olanzapine 2.5 Mg Tab) 2.5 mg PO BID [facility] Stop: 09/26/22 20:59 Last Admin: 08/30/22 09:56 Dose: 2.5 mg Olanzapine (Olanzapine 10 Mg/2.1 Ml Sdv) 2.5 mg IM QID PRN PRN Reason: Agitation Stop: 09/26/22 10:28 Last Admin: 08/28/22 20:47 Dose: 2.5 mg Olanzapine (Olanzapine Zydis 5 Mg Orally Dis. Tab) 2.5 mg PO QID PRN PRN Reason: Agitation Stop: 09/26/22 12:59 Quetiapine Fumarate (Quetiapine Fumarate 25 Mg Tablet) 50 mg PO HS AMANDO Stop: 09/25/22 20:59 Last Admin: 08/29/22 21:40 Dose: 50 mg Quetiapine Fumarate (Quetiapine Fumarate 25 Mg Tablet) 25 mg PO QAM [facility] Stop: 09/26/22 08:59 Last Admin: 08/30/22 09:56 Dose: 25 mg Sertraline HCl (Sertraline Hcl 50 Mg Tablet) 25 mg PO HS AMANDO Stop: 09/21/22 20:59 Last Admin: 08/29/22 21:43 Dose: 25 mg Sodium Chloride (Sodium Chloride 5% Op Soln 15 Ml Btl) 1 drops OP BID PRN PRN Reason: PAIN CONTROL Stop: 09/23/22 12:39 Last Admin: 08/28/22 10:12 Dose: 1 drops
[2022-08-30] MEDS: SERTRALINE HCL 50 MG TABLET PO SCH (20:26)
[2022-08-30 21:17] VITALS: O2SAT 97
[2022-08-31] MEDS: CLOTRIMAZOLE 10 MG TROCHE BUCCAL SCH ×2 (06:41→12:10)
[2022-08-31] MEDS: OLANZAPINE 2.5 MG TAB PO SCH (09:45)
[2022-08-31] MEDS: BETAMETHASONE DIPROPIONATE 0.05% EXT SCH (09:45)
[2022-08-31] MEDS: QUEtiapine FUMARATE 25 MG TABLET PO SCH (09:46)
[2022-08-31 10:30] VITALS: TEMP 97.9
[2022-08-31] MEDS: RIVASTIGMINE REMOVE SCH (10:48)
--- NOTE | 2022-08-31 11:41 | Discharge Summary ---
Discharge Summary Date of Service August 31, 2022 Notes For Next Care Provider Pt now on Hospice Medication Changes From Visit NEW-Quetiapine changed to 25 mg every morning and 50 mg nightly. DISCONTINUED- Aspirin 81 mg p.o. daily Atorvastatin 40 mg p.o. daily Betamethasone lotion Boost liquid Calcium carbonate Bisi Calciferol Fish oil Flonase nasal spray Glucosamine complex Guaifenesin Ketoconazole shampoo Lisinopril 40 mg daily Metoprolol tartrate 25 mg p.o. twice daily Multivitamin Omeprazole 20 mg daily Rivastigmine patch transdermal daily Admission HPI Per Admitting Provider Ms. Ortega is a 77-year-old female that was transferred to [facility] from [facility] after experiencing some altered mental status that was noticed by staff. It is unclear whether or not she had a fall. Additional past medical history includes HTN, HLD, senile degeneration of the brain, and ductal carcinoma in situ of breast. In the ED, K+ was 6.7, creatinine 3.54 (baseline in [facility] from a few years ago 1.2-1.3). Patient received 10 units insulin, dextrose x2 and 2 g IV calcium gluconate. Head CT was negative, chest x-ray negative, hip/pelvic CT negative, abdominal CT without SBO and otherwise unremarkable. Patient quite restless in the ED received 1 dose IM Zyprexa prior to admission and was placed on soft mitt restraints as she was causing self-harm by pulling out multiple IVs. Patient sister is at bedside at the moment and I was able to speak with her. Additionally I was able to speak with the residents mobile home technician Janay who stated that at baseline the patient is ambulatory however has declined both cognitively and functionally over the last 6 months. She does eat independently but overall intake has been decreased. She has become more incontinent of urine lately. Patient does look at me when her name is spoken however is not able to participate in any meaningful conversation including decision making or CODE ST ATUS. Patient's POA/brother just had a stroke and is currently inpatient at the [facility] and POA has been transitioned to the patients niece, Shannon Ratliff ([phone]) .who I was able to speak with on the phone. She stated that over the last 6 months she has generally declined. She does think that she has a living well but is going to look for it tomorrow. She stated that patient would not want her aerobic measures taken in the event of cardiac or respiratory arrest; will reflect DNR/DNI. Repeat BNP shows downward trend of potassium 5.7, creatinine 3.20. Will administer an additional gram of calcium gluconate. Discussed on the phone with nephrology who suggested a HCO3 drip with a 500 mL bolus followed by maintenance of 75 mL/h until the morning. Will recheck BMP at 2300. Anticipate that MYKEL is related to dehydration due to over all progression of dementia. Patient will be admitted for further evaluation and management. PLease see A/P for further details. Principal Dx & Hospital Course #1 = Principal Diagnosis (1) Mixed Alzheimer's and vascular dementia: (2) Comfort measures only status: (3) Acute kidney injury: (4) Dementia: (5) HTN (hypertension): (6) Depression: Plan 77-year-old female transferred from [facility] after worsening progressive confusion to the point of delirium. Initially her potassium was 6.7 and she was in acute renal failure. She received insulin dextrose calcium gluconate and a head CT was negative. Chest x-ray was negative. Hip and pelvic CT was negative and abdominal CT revealed no evidence of SBO and was otherwise unremarkable. In the ER she was restless and received IM Zyprexa and soft mitt restraints. Her sister was at the bedside and offered the patient had been declining since . The patient's POA/brother had fallen ill from a stroke and was currently inpatient at the [facility] and power of assistant county attorney have been transition to the patient's niece, Shannon ratliff. Throughout the hospital stay her creatinine returned to baseline and potassium was normalized but her mental status continued to remain the same. She had a possible urinary tract infection and initially was started on antibiotics which were later stopped. Dementia with behavioral disturbance was diagnosed and psych was consulted for help with additional medication changes as needed. Her Seroquel dose was increased at night and 25 of Seroquel was added in the morning. She was also on IM Zyprexa as needed. Palliative care was consulted and ultimately she was transition to comfort care measures/hospice. When she left she was in good condition, awake, alert and hemodynamically stable aside from some mild tachycardia. She will continue hospice care at receiving facility. Discharge Exam CONSTITUTIONAL: WNWD, vitals as above, generally well-appearing, delirious, unable to follow instructions. Fidgeting with her blanket. EYES: normal conjunctivae, no scleral icterus ENT: external ear and nose normal, MMM NECK: trachea midline RESPIRATORY: clear to auscultation bilaterally, no crackles, rales or wheezes, normal respiratory effort CARDIOVASCULAR: regular rate and rhythm, S1 and 2 heard without murmurs, gallops or rubs, no JVD, no peripheral edema CHEST: inspection of chest was normal GASTROINTESTINAL: soft, nontender, ND, no guarding MUSCULOSKELETAL: moves all extremities equally, no gross focal deficits observed. SKIN: warm and dry, multiple well healed circular bruises noted on her legs bilaterally NEUROLOGIC: awake and unccoperative with exam, however, she has no gross focal neurologic deficits that are observed. Speech intact. PSYCHIATRIC: alert, confused and disoriented. Cannot follow instructions or answer questions appropriately. Updated Medication List Medication Instructions Recorded Confirmed Type cyclosporine 0.05 % eye drops 1 drops ophthalmic (eye) Q12H 04/01/20 08/22/22 History (Restasis MultiDose) sertraline 25 mg tablet 25 mg PO HS 04/01/20 08/22/22 History saliva substitute combo no.9 1 ea mucous membrane BID 05/31/21 08/22/22 History (Biotene Dry Mouth Oral Rinse mouthwash) acetaminophen 325 mg tablet 650 mg PO Q6 PRN Fever Or Pain 08/22/22 08/22/22 History quetiapine 25 mg tablet 25 mg PO QAM #30 tabs 08/31/22 Rx quetiapine 25 mg tablet 50 mg PO HS #30 tabs 08/31/22 Rx Hospital Stay Data Consultations 08/22/22 14:18 ED Decision to Admit Stat 08/22/22 15:09 Consult Nephrology Routine 08/26/22 07:43 Consult Psychiatry Routine 08/28/22 07:16 Consult Palliative Care Routine Diagnostic Imagining Performed 08/22/22 11:07 CT head/brain wo con Stat 08/22/22 11:59 CT abd pelvis wo con Stat Pending Results Patient Have Any Pending Studies at Discharge: No Discharge Instructions Given to Patient (Per Discharging Provider) During this admission the patient has been transitioned positioned to comfort measures status only. She has been seen by palliative care and will be a hospice patient moving forward. There were multiple medications that were discontinued as a result of this change. She has end-stage dementia with delirium and family members are making her decisions at this point. She does not want any artificial nutrition, calorie counts or any intervention that may prolong the dying process or add to any undue suffering. She does not want any additional labs or interventions. Per palliative medicine if olanzapine is used, consideration should be given to beginning a scheduled dose twice daily to assist in long-term management. If behavioral disturbances persist in spite of multiple rounds of medical management, Depo Haldol may be considered. Psychiatry saw patient this admission and adjusted her psychiatric medications with improvement. Close follow-up with primary care recommended as needed for medication titration or other issues. It was a pleasure taking care of you! Please call if you have any questions or problems. You can reach a [facility] hospitalist on duty at [facility] 24 hours a day by calling [phone]. Take care of yourself. Blanca Schmitz, [facility] Hospitalist Total Time Total Time Spent Total Time Spent (In Minutes): 60
[2022-08-31 12:38] VITALS: BP 99/64; PULSE 105
--- NOTE | 2022-08-31 13:36 | Palliative Care Progress Note ---
Date of Service August 31, 2022 Assessment & Plan (1) Palliative care encounter: Plan: Advanced dementia, now on comfort care Awaiting placement, family desires comfort care and hospice (2) Mixed Alzheimer's and vascular dementia: Plan: nearing end stage FAST 7c Present on Admission?: Yes (3) Dementia with behavioral disturbance: Plan: Resolved behav issues, no longer agitated Continue current regimen Plan Continue comfort care No med changes needed She is not agitated or restless, she is taking some PO as tolerated for comfort and pleasure, this should be continued for her QOL Awaiting placement Darlene hWitman DNP Clinical Director, Palliative Medicine Admission and Anticipated Discharge Date Admission Date: August 22, 2022 Subjective OOB to chair, eating some lunch no acute distress pleasantly confused, cannot answer questions, speech a bit garbled and nonsensical no family present Review of Systems Review of Systems: Unobtainable due to cognitive status Physical Exam Physical Exam: No acute distress Awake, somewhat alert but not oriented, unable to follow commands or answer questions Bitemp wasting PERRL Pharynx pink, MMM No stridor Chest diminished but clear RRR, no JVD Abd soft, non tender BS+ +generalized weakness +pleasantly confused Results & Data ([facility]) Vital Signs (Past 12 Hours) Vital Signs Temp Pulse Pulse Resp BP BP Pulse Ox 08/31/22 12:33 36.6 C 105 H 101 H 18 99/64 L 117/67 97 08/31/22 10:28 36.6 C 101 H 18 117/67 97 O2 Del Method 08/31/22 12:33 08/31/22 10:28 Room Air PG Care Time/CCT Total # of Minutes Spent Total Time Spent: 35 Total Time Spent with Patient: Total time spent is greater than 50% in coordination of care (as documented) at patient's floor/unit and/or counseling patient: Prolonged Care Time Prolonged Care Time: No Critical Care Time: No Critical Care Time Critical Care Time: No [place] [address] Subseq Hosp Care Lvl 2 Patient Type Established History Expanded Problem Focused Exam Detailed Medical Decision Making Moderate Complexity Diagnoses Palliative care encounter Z51.5 Mixed Alzheimer's and vascular dementia G30.9; F01.50; F02.80 Dementia with behavioral disturbance F03.918
== END 2022-08-31 13:33 | disposition hospice, inpatient (51) | DRG 682 ==
LOC: ED 10:39 → SUATTDRO 15:05 → EDINP 15:05 → 1E 17:44 → 2E 08-24 06:11 → 3N 08-29 16:03

== ENCOUNTER 2024-01-13 14:17 | Inpatient (IN) ==
--- NOTE | 2024-01-13 15:06 | XRay Report ---
XR pelvis 1-2V routine CLINICAL HISTORY: Fall. COMPARISON: Pelvis radiograph and CT of the abdomen and pelvis August 22, 2022. FINDINGS: Sacroiliac joints and symphysis pubis are intact. There is no acute fracture within the pe lvis or hips. Hip joint spaces are preserved. There is mild bilateral hip osteophytosis. IMPRESSION: No fractures within the pelvis or hips. ACT 112: Negative or not required by law. Electronically signed by: Yuval Arredondo M.D. 01/13/2024 3:05 PM
--- NOTE | 2024-01-13 15:19 | CT Scan Report ---
CT SCAN OF THE BRAIN WITHOUT IV CONTRAST CLINICAL HISTORY: Change in mental status. Fall COMPARISON STUDY: CT of the brain dated 08/22/2022. TECHNIQUE: Unenhanced axial CT scan of the brain is performed from the vertex to the skull base. A do se lowering technique was utilized adhering to the principles of ALARA. The patient was scanned twice due to motion artifact. CT DOSE: 2107.47 mGy.cm FINDINGS: Brain parenchyma: There is age-related involutional change noting advanced confluent subcortical and periventricular microangiopathic disease. There is no hemorrhage, mass effect, or evidence of acute t erritorial ischemia by CT criteria. Delgadillo-white matter differentiation is preserved. There is a chroni c lacunar infarct in the right caudate head. No extra-axial fluid collection is seen. Ventricles, sulci, cisterns: Prominent secondary to involutional change. Intracranial vasculature: There is atherosclerotic calcification of the cavernous carotid and vertebr al artery. Calvarium: The skeletal structures are osteopenic. No depressed calvarial fracture is seen. Sinuses and mastoids: There is mucosal thickening in the right sphenoid sinus. The remaining visualiz ed paranasal sinuses are clear. The mastoid air cells are well pneumatized. Orbits: The bony orbits are grossly intact. There are bilateral ocular lens implants. IMPRESSION: There is no hemorrhage, mass effect, or evidence of acute territorial ischemia by CT [place] noting a motion compromised examination. ACT 112: Negative or not required by law. Electronically signed by: Howard Cevallos M.D. 01/13/2024 3:18 PM
--- NOTE | 2024-01-13 15:34 | CT Scan Report ---
CT OF THE CERVICAL SPINE WITHOUT CONTRAST CLINICAL HISTORY: Fall. COMPARISON STUDY: Cervical spine CT December 03, 2021. TECHNIQUE: Helical axial images of the cervical spine were obtained without IV contrast. Sagittal a nd coronal reconstructions were viewed. Automated exposure control was utilized for the study. A do se lowering technique was utilized adhering to the principles of ALARA. FINDINGS: Incidental note is made of a comminuted mildly displaced fracture of the left mandibular co ndyle. This fracture is acute to subacute. No cervical spine fractures are present. There is slight a nterolisthesis of C4 on C5, minimally increased since CT of December 03, 2021. Disc space narrowing is mo st pronounced at C5-C6. There is moderate multilevel facet arthrosis. IMPRESSION: 1. No acute cervical spine fracture or subluxation. 2. Acute to subacute comminuted mildly displaced fracture of the left mandibular condyle. ACT 112: Negative or not required by law. Electronically signed by: Yuval Arredondo M.D. 01/13/2024 3:32 PM
[2024-01-13 15:37] LABS: Basophils # (auto) 0.04 K/uL (0.00-0.20); Basophils % (auto) 0.6 %; Eosinophils % (auto) 1.5 %; Hematocrit (blood only) 40.2 % (37.0-47.0); Hemoglobin 13.5 g/dl (12.0-16.0); Immature Granulocytes # (auto) 0.05 K/uL (0.01-0.20); Immature Granulocytes % (auto) 0.8 %; Lymphocytes % (auto) 13.7 %; Mean Corpuscular Hgb Conc 33.6 g/dL (32.0-36.0); Mean Corpuscular Volume 92.2 fL (80.0-100.0); Mean Platelet Volume 10.6 fL (9.4-12.4); Monocytes # (auto) 0.64 K/uL (0.11-0.59); Monocytes % (auto) 9.7 %; Neutrophils # (auto) 4.85 K/uL (1.40-6.50); Neutrophils % (auto) 73.7 %; Platelet Count 199 K/uL (130-400); RDW Coefficient of Variation 13.5 % (11.5-14.5); Red Blood Count 4.36 M/uL (4.20-5.40); White Blood Count 6.58 K/ul (4.8-10.8)
[2024-01-13 15:55] LABS: BUN Creatinine Ratio 25.9 (10-20); Calcium 9.7 mg/dl (8.6-10.3); Creatinine Clr Calc Pharmacy 31.3 ml/min; Est GFR (African American) 57.3 ml/min; Est GFR (Non-African American) 49.5 ml/min; Potassium 4.4 mmol/L (3.5-5.1)
--- NOTE | 2024-01-13 15:58 | XRay Report ---
XR chest 1V portable CLINICAL HISTORY: Fall. COMPARISON STUDY: Chest radiograph August 22, 2022. FINDINGS: There is no pneumothorax or pleural effusion. No airspace opacities are present. Interstiti al thickening is similar to prior exams and likely chronic. Cardiomediastinal silhouette is unremarka ble. Subpleural biapical opacities favor scarring. IMPRESSION: No acute cardiopulmonary findings. No significant change in appearance of the chest. ACT 112: Negative or not required by law. Electronically signed by: Yuval Arredondo M.D. 01/13/2024 3:57 PM
[2024-01-13 16:11] LABS: INR 0.9 (0.9-1.1); Partial Thromboplastin Ratio 0.9; Partial Thromboplastin Time 25 Seconds (21-31); Prothrombin Time 10.3 Seconds (9.0-12.0)
[2024-01-13] MEDS ORDERED: ONDANSETRON INJ 2 MG/ML 2 ML VIAL IV PRN (16:24)
[2024-01-13] MEDS ORDERED: POLYETHYLENE (MIRALAX) 17 GM PACK PO PRN (16:24)
[2024-01-13] MEDS ORDERED: ACETAMINOPHEN 325 MG TAB PO PRN (16:24)
[2024-01-13] MEDS ORDERED: MAGNESIUM HYDROXIDE SUSP 30 ML UDC PO PRN (16:24)
[2024-01-13] MEDS ORDERED: ALUMINUM/MAGNESIUM SUSP 30 ML UDC PO PRN (16:24)
--- NOTE | 2024-01-13 16:29 | History & Physical Report ---
Date of Service January 13, 2024 Assessment & Plan (1) Mandibular fracture: (2) Weakness: (3) Fall: (4) Unspecified dementia, severe, with other behavioral disturbance: (5) Goals of care, counseling/discussion: Plan Ms. Ortega is a 78 year old female that presents to the ED via EMS for evaluation s/p fall x3 today. I was able to speak with Emelia, research administrator at [facility] who stated that she did not eat breakfast today. At 1130 today she had a fall; staff was able to lift her back up and she was 'ok'. Later in the day she had two additional falls and they felt that she was weaker than usual. At baseline, she has severe dementia with behavioral disturbance that occurs throughout the day. She does take Ativan for behavioral disturbance and was scheduled until today where it was changed to PRN. She was historically taking it Q4h. She was recently changed from Seroquel to Depakote by kiara but staff reports that the medication change occurred a few months ago. She normally at baseline walks independently. Once in a while she is able to discern where she is, but is mostly AAOx1 at baseline. She has had falls prior to today, but nothing too recent. She is on a regular diet; applesauce with med [employer]. She was on Hospice and she was discharged from Hospice for a while now. She does have a sister and a brother Roly who is not well. Her POA is [facility] [phone]. Hospice Eval and Treat was send over and then today she had the falls and they called EMS. CSCT: Acute to subacute comminuted mildly displaced fracture of the left mandibular condyle. No leukocytosis, labs otherwise unremarkable. CXR negative for acute cardiopulmonary disease. Head CT negative for ICH/SDH/midline shift. Pelvis X-ray negative for fracture. Patient will be admitted for further evaluation and management of her acute mandibular fracture with pain control, maxillofacial surgery consult with Dr. Calhoun, consider Palliative Medicine consultation for goals of care/hospice reeval with POLST form completion prior to return to [facility]. Will rule out organic causes of worsening AMS like checking a UA; however, I suspect this is progression of her advanced dementia. Mandibular fracture: Acute CS CT: Acute/subacute mildly displaced fracture left mandibular condyle Status post fall; unknown if occurred today Patient independently moving her jaw and does not appear in apparent distress Will schedule IV Tylenol for pain control Maxillofacial surgery; Dr. Calhoun aware and consult placed Unspecified severe dementia with behavioral disturbance: Weakness: Chronic Fast score all of 6 and up to 7 a Was taking Ativan 4 times daily and recently decreased to as needed; should be further looked into as to timing of change and indication of change Will rule out organic causes of worsening AMS like checking a UA; however, I suspect this is progression of her advanced dementia. PT/OT unlikely to be beneficial for advanced dementia with poor retention of instructions Consider Zyprexa for behavioral disturbance given advanced dementia Goals of care, counseling/discussion: Brother and sister not medically well; CASANDRA Scherer [phone] Reportedly was on hospice for advanced dementia and discharged a few months ago due to lack of progression of disease state Hospice eval and treat was planned by [facility] but referral was never sent Consider palliative medicine consultation and POLST form to be completed prior to discharge Disposition: PCP: Jesus Alberto Zuluaga Code Status: DNR/DNI VTE Prophylaxis: Teds and SCDs for now I spent a total of 87 minutes coordinating, documenting, and providing care for this patient excluding time spent in the performance of separately billed services. All of the aforementioned completed while collaborating with the assigned attending physician for a full treatment plan. Please see their addendum for further details. History of Present Illness Chief Complaint: weakness s/p Fall Primary Care Provider: [facility] Ms. Ortega is a 78 year old female that presents to the ED via EMS for evaluation s/p fall x3 today. I was able to speak with Emelia, research administrator at [facility] who stated that she did not eat breakfast today. At 1130 today she had a fall; staff was able to lift her back up and she was 'ok'. Later in the day she had two additional falls and they felt that she was weaker than usual. At baseline, she has severe dementia with behavioral disturbance that occurs throughout the day. She does take Ativan for behavioral disturbance and was scheduled until today where it was changed to PRN. She was historically taking it Q4h. She was recently changed from Seroquel to Depakote by kiaar but staff reports that the medication change occurred a few months ago. She normally at baseline walks independently. Once in a while she is able to discern where she is, but is mostly AAOx1 at baseline. She has had falls prior to today, but nothing too recent. She is on a regular diet; applesauce with medications. She was on Hospice and she was discharged from Hospice for a while now. She does have a sister and a brother Roly who is not well. Her POA is [facility] [phone]. Hospice Eval and Treat was send over and then today she had the falls and they called EMS. CSCT: Acute to subacute comminuted mildly displaced fracture of the left mandibular condyle. No leukocytosis, labs otherwise unremarkable. CXR negative for acute cardiopulmonary disease. Head CT negative for ICH/SDH/midline shift. Pelvis X- ray negative for fracture. Patient will be admitted for further evaluation and management of her acute mandibular fracture with pain control, maxillofacial surgery consult with Dr. Calhoun, consider Palliative Medicine consultation for goals of care/hospice reeval with POLST form completion prior to return to [facility]. Allergies Allergy/AdvReac Type Severity Reaction Status Date / Time No Known Allergies Allergy Verified 01/13/24 16:21 Home Medications Medication Instructions Recorded Confirmed Type acetaminophen 325 mg tablet 650 mg PO Q6 PRN Fever Or Pain 08/22/22 01/13/24 History divalproex 125 mg capsule,delayed 125 mg PO BIDM 01/13/24 01/13/24 History release sprinkle lorazepam 2 mg/mL oral concentrate 0.5 mg PO Q4H PRN Anxiety 01/13/24 01/13/24 History Past Med/Surg History Problem List (Updated 01/13/24 @ 17:18 by AUDELIA Menon) Mandibular fracture Fall Weakness Goals of care, counseling/discussion Unspecified dementia, severe, with other behavioral disturbance Senile degeneration of brain Comfort measures only status Discussion about advance care planning held with family member Palliative care encounter Dementia with behavioral disturbance Hyperkalemia Acute hyperkalemia (Acute) Dementia (Acute) Agitation (Acute) Acute dehydration (Acute) Acute renal failure (ARF) (Acute) Depression GERD (gastroesophageal reflux disease) HTN (hypertension) Acute kidney injury 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) Vertigo Mixed dyslipidemia Hypertension Ductal carcinoma in situ (DCIS) of breast Dementia Allergic rhinitis due to pollen Non-allergic rhinitis Scalp psoriasis Medical History (Updated 01/13/24 @ 17:18 by AUDELIA Menon) Mandibular fracture Fall Weakness Goals of care, counseling/discussion Unspecified dementia, severe, 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 Discussion about advance care planning held with family member Palliative care encounter CKD (chronic kidney disease) stage 3, GFR 30-59 ml/min Depression GERD (gastroesophageal reflux disease) HTN (hypertension) Acute kidney injury Dementia Hypertension Mixed dyslipidemia Vertigo 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) Surgical History History of cataract surgery Family History Mother Aortic aneurysm, ruptured Breast cancer Skin cancer Pancreatic cancer Father Lung cancer Social History Smoking Status: Unknown if ever smoked Hx Alcohol Use: No Hx Substance Use: No Preferred Language: Upper Sorbian Communication Ability: Effective Psych Arnp Required: No Beliefs That Will Affect Care: None Current Living Situation: Custodial Current Living Situation Comment: [facility] Other Information That Helps Us Care for You: No Feels Safe at Home: Yes Safety Concerns: Feels Safe At This Time Assistive Devices: None Review of Systems Review of Systems: Unobtainable due to cognitive status Physical Exam Physical Exam: Neuro: AAOx1, no aphagia, memory changes, CNII-XII grossly intact HEENT: head normocephalic, moist mucus membranes CV: S1/S2, (-) M/G/R, (-) edema, cap refill < 3 seconds Resp: Lungs CTA in all sheets. On RA GI: Abdomen S/NT/ND, Ax4 bowel sounds, (-) CVA tenderness Musculoskeletal: 5/5 B/L UE strength, 5/5 B/L LE strength. No gait disturbance Skin: (-) rashes , (-) erythema. L ulnar ecchymosis s/p fall. Mid-mandibular ecchymosis without swelling. Psych: euthymic mood Results & Data Results & Data Vital Signs (Past 12 Hours) Vital Signs Temp Pulse Resp BP Pulse Ox O2 Del Method 01/13/24 15:18 94 H 0513/24 14:28 99 H 18 94 Room Air 01/13/24 14:25 36.5 C 96 H 18 132/90 98 Room Air Laboratory Results Short CBC 01/13/24 Range/Units 13:53 WBC 6.58 (4.8-10.8) K/ul Hgb 13.5 (12.0-16.0) g/dl Hct 40.2 (37.0-47.0) % Plt Count 199 (130-400) K/uL BMP 01/13/24 13:53 Sodium 140 Potassium 4.4 Chloride 105 Carbon Dioxide 25 BUN 28 H Creatinine 1.08 Glucose 113 H Calcium 9.7 Diagnostic Findings Cervical Spine CT 01/13/24 14:27 CT OF THE CERVICAL SPINE WITHOUT CONTRAST CLINICAL HISTORY: Fall. COMPARISON STUDY: Cervical spine CT December 03, 2021. TECHNIQUE: Helical axial images of the cervical spine were obtained without IV contrast. Sagittal and coronal reconstructions were viewed. Automated exposure control was utilized for the study. A dose lowering technique was utilized adhering to the principles of ALARA. FINDINGS: Incidental note is made of a comminuted mildly displaced fracture of the left mandibular condyle. This fracture is acute to subacute. No cervical spine fractures are present. There is slight anterolisthesis of C4 on C5, minimally increased since CT of December 03, 2021. Disc space narrowing is most pronounced at C5-C6. There is moderate multilevel facet arthrosis. IMPRESSION: 1. No acute cervical spine fracture or subluxation. 2. Acute to subacute comminuted mildly displaced fracture of the left mandibular condyle. ACT 112: Negative or not required by law. Electronically signed by: Yuval Arredondo M.D. 01/13/2024 3:32 PM Chest X-Ray 01/13/24 14:27 XR chest 1V portable CLINICAL HISTORY: Fall. COMPARISON STUDY: Chest radiograph August 22, 2022. FINDINGS: There is no pneumothorax or pleural effusion. No airspace opacities are present. Interstitial thickening is similar to prior exams and likely chronic. Cardiomediastinal silhouette is unremarkable. Subpleural biapical opacities favor scarring. IMPRESSION: No acute cardiopulmonary findings. No significant change in appearance of the chest. ACT 112: Negative or not required by law. Electronically signed by: Yuval Arredondo M.D. 01/13/2024 3:[address] 01/13/24 14:27 CT SCAN OF THE BRAIN WITHOUT IV CONTRAST CLINICAL HISTORY: Change in mental status. Fall COMPARISON STUDY: CT of the brain dated 08/22/2022. TECHNIQUE: Unenhanced axial CT scan of the brain is performed from the vertex to the skull base. A dose lowering technique was utilized adhering to the principles of ALARA. The patient was scanned twice due to motion artifact. CT DOSE: 2107.47 mGy.cm FINDINGS: Brain parenchyma: There is age-related involutional change noting advanced confluent subcortical and periventricular microangiopathic disease. There is no hemorrhage, mass effect, or evidence of acute territorial ischemia by CT criteria. Delgadillo-white matter differentiation is preserved. There is a chronic lacunar infarct in the right caudate head. No extra-axial fluid collection is seen. Ventricles, sulci, cisterns: Prominent secondary to involutional change. Intracranial vasculature: There is atherosclerotic calcification of the cavernous carotid and vertebral artery. Calvarium: The skeletal structures are osteopenic. No depressed calvarial fracture is seen. Sinuses and mastoids: There is mucosal thickening in the right sphenoid sinus. The remaining visualized paranasal sinuses are clear. The mastoid air cells are well pneumatized. Orbits: The bony orbits are grossly intact. There are bilateral ocular lens implants. IMPRESSION: There is no hemorrhage, mass effect, or evidence of acute territorial ischemia by CT criteria noting a motion compromised examination. ACT 112: Negative or not required by law. Electronically signed by: Howard Cevallos M.D. 01/13/2024 3:18 PM Pelvis X-Ray 01/13/24 14:27 XR pelvis 1-2V routine CLINICAL HISTORY: Fall. COMPARISON: Pelvis radiograph and CT of the abdomen and pelvis August 22, 2022. FINDINGS: Sacroiliac joints and symphysis pubis are intact. There is no acute fracture within the pelvis or hips. Hip joint spaces are preserved. There is mild bilateral hip osteophytosis. IMPRESSION: No fractures within the pelvis or hips. ACT 112: Negative or not required by law. Electronically signed by: Yuval Arredondo M.D. 01/13/2024 3:05 PM Code Status & VTE Plan Code Status DNR/DNI VTE Prophylaxis Plan VTE Prophylaxis will be ordered: Yes Supervising Physician Co-Signing Physician Notes I have seen and discussed the case with the collaborating advanced practitioner. I agree with the above H&P. I have reviewed and confirmed the patients medical history, the findings on physical examination, and the patients diagnosis and treatment plan with DEEPAK and agree with the information documented. In short, Ms Ortega is a 78 year old woman with past medical history notable for severe dementia with behavioral disturbance who is admitted for management of mandibular fracture s/p multiple mechanical falls. Patient is unable to answer questions and agitated at time of exam. GENERAL APPEARANCE: AxO1, agitated, Trendelenburg position to aid in desire to roam HEENT: NC, AT. MMM. EOMI, clear conjunctiva,no bony deformity noted of mandible, subtle ecchymosis HEART: Normal rate and regular rhythm, normal S1/S1, no m/r/g LUNGS: diminished 2.2 effort ABDOMEN: Soft, nontender, nondistended with good bowel sounds heard. EXTREMITIES: Without cyanosis, clubbing or edema. NEUROLOGICAL: Grossly nonfocal. moving all extremities Skin: Warm and dry without any rash. #Mandibular fracture pain management OMFS consult NPO #Mechanical falls -UA when able No clear localizing signs symptoms does not follow commands PT/OT for assessment #Advanced dementia Alert to self; previously on hospice rest of plan as above I spent a total of 35 minutes coordinating, documenting, and providing care for this patient excluding time spent in the performance of separately billed services. All of the aforementioned completed outside of collaborating with the assigned advanced practitioner for a full treatment plan. I have reviewed the advanced practitioner's documentation, and I agree with, and take responsibility for the plan of care
[2024-01-13 17:40] LABS: Hematocrit (blood only) 37.7 % (37.0-47.0); Hemoglobin 12.6 g/dl (12.0-16.0); Mean Corpuscular Hemoglobin 30.9 pg (25.0-34.0); Mean Corpuscular Hgb Conc 33.4 g/dL (32.0-36.0); Mean Corpuscular Volume 92.4 fL (80.0-100.0); Mean Platelet Volume 10.3 fL (9.4-12.4); Platelet Count 177 K/uL (130-400); RDW Coefficient of Variation 13.5 % (11.5-14.5); RDW Standard Deviation 46.4 fL (36.4-46.3); Red Blood Count 4.08 M/uL (4.20-5.40); White Blood Count 6.88 K/ul (4.8-10.8)
[2024-01-13] MEDS: ACETAMINOPHEN 1,000 MG/100 ML VIAL IV SCH (18:05)
--- NOTE | 2024-01-13 20:41 | Emergency Department Note ---
History of Present Illness General Chief complaint: Weakness Time Seen by Provider: 01/13/24 14:26 Source: EMS History of Present Illness Provider complaint: Fall weakness 78-year-old female with history of dementia presents emergency department for fall and weakness. EMS reported that the patient fell at 1315 today at her detention. They stated after that the patient was acting normally but she fell 2 more times. They stated after the third fall the patient was having left-sided facial droop left-sided weakness and was brought into the emergency department for evaluation. Home Medications Medication Instructions Recorded Confirmed Type acetaminophen 325 mg tablet 650 mg PO Q6 PRN Fever Or Pain 08/22/22 01/13/24 History divalproex 125 mg capsule,delayed 125 mg PO BIDM 01/13/24 01/13/24 History release sprinkle lorazepam 2 mg/mL oral concentrate 0.5 mg PO Q4H PRN Anxiety 01/13/24 01/13/24 History Allergies Allergy/AdvReac Type Severity Reaction Status Date / Time No Known Allergies Allergy Verified 01/13/24 16:21 Past Med/Surg History Problem List (Updated 01/13/24 @ 20:48 by Pieter Fairbanks MD) TIA (transient ischemic attack) (Acute) Mandibular fracture (Acute) Fall (Acute) Weakness Goals of care, counseling/discussion Unspecified dementia, severe, with other behavioral disturbance Senile degeneration of brain Comfort measures only status Discussion about advance care planning held with family member Palliative care encounter Dementia with behavioral disturbance Hyperkalemia Acute hyperkalemia (Acute) Dementia (Acute) Agitation (Acute) Acute dehydration (Acute) Acute renal failure (ARF) (Acute) Depression GERD (gastroesophageal reflux disease) HTN (hypertension) Acute kidney injury 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) Vertigo Mixed dyslipidemia Hypertension Ductal carcinoma in situ (DCIS) of breast Dementia Allergic rhinitis due to pollen Non-allergic rhinitis Scalp psoriasis Medical History Mandibular fracture Fall Weakness Goals of care, counseling/discussion Unspecified dementia, severe, 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 Discussion about advance care planning held with family member Palliative care encounter CKD (chronic kidney disease) stage 3, GFR 30-59 ml/min Depression GERD (gastroesophageal reflux disease) HTN (hypertension) Acute kidney injury Dementia Hypertension Mixed dyslipidemia Vertigo 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) Surgical History History of cataract surgery Family History Mother Aortic aneurysm, ruptured Breast cancer Skin cancer Pancreatic cancer Father Lung cancer Social History Smoking Status: Unknown if ever smoked Hx Alcohol Use: No Hx Substance Use: No Preferred Language: Afghan Communication Ability: Effective Plc Programmer Required: No Beliefs That Will Affect Care: None Current Living Situation: Shelter Current Living Situation Comment: [facility] Other Information That Helps Us Care for You: No Feels Safe at Home: Yes Safety Concerns: Feels Safe At This Time Assistive Devices: None Physical Exam Vital Signs Vital Signs - 24 hr 01/13/24 14:25 01/13/24 14:28 01/13/24 15:18 Temperature 36.5 C Temperature Source Oral Pulse Rate 96 H 99 H 94 H Pulse Rhythm Regular Respiratory Rate 18 18 Blood Pressure 132/90 Blood Pressure Mean 104 Pulse Oximetry 98 94 Oxygen Delivery Method Room Air Room Air Sepsis Recent Fever Within 48 Hours No Sepsis New/Unexplained Change in Mental Status No Sepsis Action Taken by Nursing No Action Required Physical Exam EYES: Conjunctivae and EOM are normal. Right eye exhibits no discharge. Left eye exhibits no discharge. No scleral icterus. NECK: Normal range of motion. Neck supple. No JVD present. No C-spine tenderness. CV: Normal rate, regular rhythm, normal heart sounds and intact distal pulses. There is no peripheral edema. Palpable radial pulses bue. PULM/CHEST: Effort normal and breath sounds normal. No respiratory distress. No stridor. no wheezes. no rales. ABD: The abdomen is soft. There is no tenderness. NEURO: Motor and sensation grossly intact. No facial droop. Course Course 1426: The patient was evaluated in room C9. A complete history and physical exam was performed Cardiac monitoring: An order was placed for continuous cardiac monitoring. The monitor shows a rate of 80 with sinus rhythm interpreted by me 1615: Vital signs stable. Labs within normal limits. Imaging shows an incidental left mandibular fracture. Discussed the case with Dr. Calhoun on-call who states he will evaluate the patient and the patient is admitted. Patient has no evidence of left-sided weakness or facial droop currently but is possible that they could have suffered a TIA hard to assess given the severe dementia. [facility] for [facility]. Administered Medications Acetaminophen (Ofirmev) 1,000 mg in 100 mls @ 400 mls/hr IV Q8H AMANDO Stop: 01/16/24 17:59 Last Infusion: 01/13/24 18:18 Dose: Infused Documented By: Admin: 01/13/24 18:05 Dose: 400 mls/hr Documented By: AHMET Medical Decision Making Laboratory Data Attestation: I reviewed the patient's lab results. 01/13/24 17:18 01/13/24 13:53 Lab Results 01/13/24 Range/Units 13:53 WBC 6.58 (4.8-10.8) K/ul RBC 4.36 (4.20-5.40) M/uL Hgb 13.5 (12.0-16.0) g/dl Hct 40.2 (37.0-47.0) % MCV 92.2 (80.0-100.0) fL MCH 31.0 (25.0-34.0) pg MCHC 33.6 (32.0-36.0) g/dL RDW Std Deviation 46.0 (36.4-46.3) fL RDW Coeff of Javier 13.5 (11.5-14.5) % Plt Count 199 (130-400) K/uL MPV 10.6 (9.4-12.4) fL Immature Gran % (Auto) 0.8 % Neut % (Auto) 73.7 % Lymph % (Auto) 13.7 % Crawford % (Auto) 9.7 % Eos % (Auto) 1.5 % Baso % (Auto) 0.6 % Neut # (Auto) 4.85 (1.40-6.50) K/uL Lymph # (Auto) 0.90 L (1.20-3.40) K/uL Crawford # (Auto) 0.64 H (0.11-0.59) K/uL Eos # (Auto) 0.10 (0.00-0.50) K/uL Baso # (Auto) 0.04 (0.00-0.20) K/uL Immature Gran # (Auto) 0.05 (0.01-0.20) K/uL PT 10.3 (9.0-12.0) Seconds INR 0.9 (0.9-1.1) APTT 25 (21-31) Seconds PTT Ratio 0.9 Sodium 140 (136-145) mmol/L Potassium 4.4 (3.5-5.1) mmol/L Chloride 105 (98-107) mmol/L Carbon Dioxide 25 (21-32) mmol/L Anion Gap 10 (3-11) BUN 28 H (6-23) mg/dl Creatinine 1.08 (0.6-1.2) mg/dl Est Cr Clr Drug Dosing 31.3 ml/min Est GFR ( Amer) 57.3 ml/min Est GFR (Non-Af Amer) 49.5 ml/min BUN/Creatinine Ratio 25.9 H (10-20) Glucose 113 H (70-99(Fasting)) mg/dl Calcium 9.7 (8.6-10.3) mg/dl Magnesium 2.0 (1.7-2.4) mg/dl Imaging Data Attestation: I personally reviewed and interpreted this imaging study as follows: My Impression: Chest x-ray negative. Airway clear. No pneumothorax. No consolidation. No cardiomegaly or cephalization.. No free air under the diaphragm. No fractures of the skeletal structures. Radiologist's Impression: Cervical Spine CT 01/13/24 14:27 CT OF THE CERVICAL SPINE WITHOUT CONTRAST CLINICAL HISTORY: Fall. COMPARISON STUDY: Cervical spine CT December 03, 2021. TECHNIQUE: Helical axial images of the cervical spine were obtained without IV contrast. Sagittal and coronal reconstructions were viewed. Automated exposure control was utilized for the study. A dose lowering technique was utilized adhering to the principles of ALARA. FINDINGS: Incidental note is made of a comminuted mildly displaced fracture of the left mandibular condyle. This fracture is acute to subacute. No cervical spine fractures are present. There is slight anterolisthesis of C4 on C5, minimally increased since CT of December 03, 2021. Disc space narrowing is most pronounced at C5-C6. There is moderate multilevel facet arthrosis. IMPRESSION: 1. No acute cervical spine fracture or subluxation. 2. Acute to subacute comminuted mildly displaced fracture of the left mandibular condyle. ACT 112: Negative or not required by law. Electronically signed by: Yuval Arredondo M.D. 01/13/2024 3:32 PM Chest X-Ray 01/13/24 14:27 XR chest 1V portable CLINICAL HISTORY: Fall. COMPARISON STUDY: Chest radiograph August 22, 2022. FINDINGS: There is no pneumothorax or pleural effusion. No airspace opacities are present. Interstitial thickening is similar to prior exams and likely chronic. Cardiomediastinal silhouette is unremarkable. Subpleural biapical opacities favor scarring. IMPRESSION: No acute cardiopulmonary findings. No significant change in appearance of the chest. ACT 112: Negative or not required by law. Electronically signed by: Yuval Arredondo M.D. 01/13/2024 3:[address] 01/13/24 14:27 CT SCAN OF THE BRAIN WITHOUT IV CONTRAST CLINICAL HISTORY: Change in mental status. Fall COMPARISON STUDY: CT of the brain dated 08/22/2022. TECHNIQUE: Unenhanced axial CT scan of the brain is performed from the vertex to the skull base. A dose lowering technique was utilized adhering to the principles of ALARA. The patient was scanned twice due to motion artifact. CT DOSE: 2107.47 mGy.cm FINDINGS: Brain parenchyma: There is age-related involutional change noting advanced confluent subcortical and periventricular microangiopathic disease. There is no hemorrhage, mass effect, or evidence of acute territorial ischemia by CT criteria. Delgadillo-white matter differentiation is preserved. There is a chronic lacunar infarct in the right caudate head. No extra-axial fluid collection is seen. Ventricles, sulci, cisterns: Prominent secondary to involutional change. Intracranial vasculature: There is atherosclerotic calcification of the cavernous carotid and vertebral artery. Calvarium: The skeletal structures are osteopenic. No depressed calvarial fracture is seen. Sinuses and mastoids: There is mucosal thickening in the right sphenoid sinus. The remaining visualized paranasal sinuses are clear. The mastoid air cells are well pneumatized. Orbits: The bony orbits are grossly intact. There are bilateral ocular lens implants. IMPRESSION: There is no hemorrhage, mass effect, or evidence of acute territorial ischemia by CT criteria noting a motion compromised examination. ACT 112: Negative or not required by law. Electronically signed by: Howard Cevallos M.D. 01/13/2024 3:18 PM Pelvis X-Ray 01/13/24 14:27 XR pelvis 1-2V routine CLINICAL HISTORY: Fall. COMPARISON: Pelvis radiograph and CT of the abdomen and pelvis August 22, 2022. FINDINGS: Sacroiliac joints and symphysis pubis are intact. There is no acute fracture within the pelvis or hips. Hip joint spaces are preserved. There is mild bilateral hip osteophytosis. IMPRESSION: No fractures within the pelvis or hips. ACT 112: Negative or not required by law. Electronically signed by: Yuval Arredondo M.D. 01/13/2024 3:05 PM [facility] Narrative 1426: The patient was evaluated in room C9. A complete history and physical exam was performed Cardiac monitoring: An order was placed for continuous cardiac monitoring. The monitor shows a rate of 80 with sinus rhythm interpreted by nh 1615: Vital signs stable. Labs within normal limits. Imaging shows an incidental left mandibular fracture. Discussed the case with Dr. Calhoun on-call who states he will evaluate the patient and the patient is admitted. Patient has no evidence of left-sided weakness or facial droop currently but is possible that they could have suffered a TIA hard to assess given the severe dementia. Discussed the case with [facility] team who evaluate the patient for admission. Impression & Plan Mandibular fracture, Fall, TIA (transient ischemic attack) Discharge Plan Visit Data Chief Complaint: Weakness ED Provider: Pieter Fairbanks Discharge Problem: Mandibular fracture, Fall, TIA (transient ischemic attack) Patient Disposition: Admitted As Inpatient Discharge Instructions Interventions: ED Discharge Assessment Last Done: 01/13/24 17:41 Discharge Problem: Mandibular fracture Qualifiers: Encounter type: initial encounter Fracture type: closed Mandible location: u nspecified site of mandible Laterality: unspecified laterality Qualified Code(s): S02.609A - Fracture of mandible, unspecified, initial encounter for closed fracture Fall Qualifiers: Encounter type: initial encounter Qualified Code(s): W19.XXXA - Unspecified fall, initial encounter
[2024-01-14] MEDS: LACTATED RINGER'S 1,000 ML IV SCH (08:16)
[2024-01-14] MEDS: DIVALPROEX SODIUM SPRINKLE/DEL-REL 125 MG CAP PO SCH (09:56)
[2024-01-14 10:33] LABS: Calcium 9.5 mg/dl (8.6-10.3); Creatinine Clr Calc Pharmacy 36.8 ml/min; Est GFR (African American) 69.6 ml/min; Est GFR (Non-African American) 60.1 ml/min; Magnesium 2.1 mg/dl (1.7-2.4); Phosphorus 3.5 mg/dl (2.5-4.9); Potassium 4.7 mmol/L (3.5-5.1)
--- NOTE | 2024-01-14 11:13 | Oral/Maxillofacial Consult ---
Date of Consultation January 14, 2024 Assessment & Plan (1) Fall: (2) Mandibular fracture: History of Present Illness Attending Physician: Celi Hussein MD History of Present Illness Oral Maxillofacial Surgery Exam Present Complaint: Mandibular fracture ? Acute--non sure if new of old in nature CT: Acute/subacute mildly displaced fracture left mandibular condyle Status post fall; unknown if occurred today Patient independently moving her jaw and does not appear in apparent distress Will schedule IV Tylenol for pain control Maxillofacial surgery; Dr. Calhoun consulted Oral Exam: Finding--Patient is edentulous Oral tissues are healthy in appearance and texture Imaging: CT OF THE CERVICAL SPINE WITHOUT CONTRAST CLINICAL HISTORY: Fall. FINDINGS: Incidental note is made of a comminuted mildly displaced fracture of the left mandibular condyle. This fracture is acute to subacute. No cervical spine fractures are present. There is slight anterolisthesis of C4 on C5, minimally increased since CT of December 03, 2021. Disc space narrowing is most pronounced at C5-C6. There is moderate multilevel facet arthrosis. IMPRESSION: 1. No acute cervical spine fracture or subluxation. 2. Acute to subacute comminuted mildly displaced fracture of the left mandibular condyle. Soft tissue: Edentulous ridge -- no positive findings TMJ exam: No pain good ROM Treatment Plan: I examined Mrs Ortega in room C-9. She was difficult to exam--Nevertheless she expressed no pain upon palpation of the left TMJ. There is no bruising noted on the face or TMJ area. Her range of jaw movement is all WNL. Regardless as to when this fracture occurred they are treated differently with patients that have teeth vs with out any teeth. The fracture is intracapsular on the left TMJ area. The fracture is in good contact with the glenoid fossa and articulating eminence. Looks that vertical dimension is well preserved. In the edentulous patient no treatment is needed, if she does have dentures a denture adjustment may be needed. if no denture no treatment is needed. From a surgical point of view no treatment, special care or follow up is needed. Diet as usual. May be transferred back to her facility when medically appropriate. The left TMJ fracture is insignificant and will not require any intervention Notes from ED and admissions H&P Ms. Ortega is a 78 year old female that presents to the ED via EMS for evaluation s/p fall x3 today. I was able to speak with Emelia, junior systems administrator at [facility] who stated that she did not eat breakfast today. At 1130 today she had a fall; staff was able to lift her back up and she was 'ok'. Later in the day she had two additional falls and they felt that she was weaker than usual. At baseline, she has severe dementia with behavioral disturbance that occurs throughout the day. She does take Ativan for behavioral disturbance and was scheduled until today where it was changed to PRN. She was historically taking it Q4h. She was recently changed from Seroquel to Depakote by kiara but staff reports that the medication change occurred a few months ago. She normally at baseline walks independently. Once in a while she is able to discern where she is, but is mostly AAOx1 at baseline. She has had falls prior to today, but nothing too recent. She is on a regular diet; applesauce with medications. She was on Hospice and she was discharged from Hospice for a while now. She does have a sister and a brother Roly who is not well. Her POA is [facility] [phone]. Hospice Eval and Treat was send over and then today she had the falls and they called EMS. CSCT: Acute to subacute comminuted mildly displaced fracture of the left mandibular condyle. No leukocytosis, labs otherwise unremarkable. CXR negative for acute cardiopulmonary disease. Head CT negative for ICH/SDH/midline shift. Pelvis X-ray negative for fracture. Patient will be admitted for further evaluation and management of her acute mandibular fracture with pain control, maxillofacial surgery consult with Dr. Calhoun, consider Palliative Medicine consultation for goals of care/hospice reeval with POLST form completion prior to return to [facility]. Will rule out organic causes of worsening AMS like checking a UA; however, I suspect this is progression of her advanced dementia. Mandibular fracture: Acute CS CT: Acute/subacute mildly displaced fracture left mandibular condyle Status post fall; unknown if occurred today Patient independently moving her jaw and does not appear in apparent distress Will schedule IV Tylenol for pain control Maxillofacial surgery; Dr. Calhoun aware and consult placed Allergies Allergy/AdvReac Type Severity Reaction Status Date / Time No Known Allergies Allergy Verified 01/13/24 16:21 Home Medications Medication Instructions Recorded Confirmed Type acetaminophen 325 mg tablet 650 mg PO Q6 PRN Fever Or Pain 08/22/22 01/13/24 History divalproex 125 mg capsule,delayed 125 mg PO BIDM 01/13/24 01/13/24 History release sprinkle lorazepam 2 mg/mL oral concentrate 0.5 mg PO Q4H PRN Anxiety 01/13/24 01/13/24 History Patient History Medical History Mandibular fracture Fall Weakness Goals of care, counseling/discussion Unspecified dementia, severe, 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 Discussion about advance care planning held with family member Palliative care encounter CKD (chronic kidney disease) stage 3, GFR 30-59 ml/min Depression GERD (gastroesophageal reflux disease) HTN (hypertension) Acute kidney injury Dementia Hypertension Mixed dyslipidemia Vertigo 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) Surgical History History of cataract surgery Family History Mother Aortic aneurysm, ruptured Breast cancer Skin cancer Pancreatic cancer Father Lung cancer Social History Smoking Status: Unknown if ever smoked Hx Alcohol Use: No Hx Substance Use: No Preferred Language: Bangladeshi Communication Ability: Effective Technical Education Teacher Required: No Beliefs That Will Affect Care: None Current Living Situation: Prison [facility] Other Information That Helps Us Care for You: No Feels Safe at Home: Yes Safety Concerns: Feels Safe At This Time Assistive Devices: None Results & Data Vital Signs (Past 12 Hours) Vital Signs Pulse Pulse Resp BP Pulse Ox O2 Del Method 01/14/24 03:28 68 16 136/74 95 Room Air 01/13/24 23:38 74 PG Care Time/CCT Total # of Minutes Spent Total Time Spent with Patient: Total time spent is greater than 50% in coordination of care (as documented) at patient's floor/unit and/or counseling patient: Coding Level of Care Code 50742 OFFICE CONSULT LVL Diagnoses Fall W19.XXXA Encounter type: initial encounter Mandibular fracture S02.609A Encounter type: initial encounter Fracture type: closed Laterality: unspecified laterality Mandible location: unspecified site of mandible (1) Fall Encounter type: initial encounter Qualified Code(s): W19.XXXA - Unspecified fall, initial encounter (2) Mandibular fracture Encounter type: initial encounter Fracture type: closed Laterality: unspecified laterality Mandible location: unspecified site of mandible Qualified Code(s): S02.609A - Fracture of mandible, unspecified, initial encounter for closed fracture
--- NOTE | 2024-01-14 11:45 | Hospitalist Progress Note ---
Date of Service January 14, 2024 Assessment & Plan (1) Mandibular fracture: (2) Weakness: (3) Fall: (4) Unspecified dementia, severe, with other behavioral disturbance: (5) Goals of care, counseling/discussion: Plan 78 year old female that presents to the ED via EMS for evaluation s/p fall x3 on day of presentation Per Admitting Provider who spoke with Emelia, distance learning administrator at [facility] who stated that she did not eat breakfast. At 1130AM that day, she had a fall; staff was able to lift her back up and she was 'ok'. Later in the day she had two additional falls and they felt that she was weaker than usual. At baseline, she has severe dementia with behavioral disturbance that occurs throughout the day. Once in a while she is able to discern where she is, but is mostly AAOx1 at baseline She does take Ativan for behavioral disturbance and was scheduled until today where it was changed to PRN. She was historically taking it Q4h. She was recently changed from Seroquel to Depakote by kiara but staff reports that the medication change occurred a few months ago. She normally at baseline walks independently. She is on a regular diet; applesauce with medications. She was on Hospice and she was discharged from Hospice for a while now. She does have a sister and a brother Roly who is not well. Her POA is [facility] [phone]. H Cervical spine CT: Acute to subacute comminuted mildly displaced fracture of the left mandibular condyle. CXR negative for acute cardiopulmonary disease. Head CT negative for ICH/SDH/midline shift. Pelvis X-ray negative for fracture. Mandibular fracture: Fall: OMFS evaluation noted No treatment, special care or follow up recommended Diet resumed today. 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 Unspecified severe dementia with behavioral disturbance: Weakness: Chronic Was taking Ativan 4 times daily and recently decreased to as needed Goals of care, counseling/discussion: Brother and sister not medically well; POA [facility] [phone] Reportedly was on hospice for advanced dementia and discharged a few months ago due to lack of progression of disease state Can continue hospice eval at facility Disposition: PCP: Jesus Alberto Zuluaga Code Status: DNR/DNI VTE Prophylaxis: Teds and SCDs for now I spent a total of 40 minutes coordinating, documenting and providing care for this patient excluding time spent in performance of separately billed services Admission and Anticipated Discharge Date Admission Date: January 13, 2024 Subjective Patient seen and examined. Patient was sleeping but arousable. Opens eyes but would not cooperate. Not answering question. Declined certain parts of exam Physical Exam Constitutional: no acute distress Eyes: PERRL, conjunctivae normal, anicteric sclerae ENMT: Refused to open mouth for exam Respiratory: normal respiratory effort, lungs clear to auscultation Cardiovascular: S1 S2 Musculoskeletal: No pedal edema Results & Data Results & Data Vital Signs (Past 12 Hours) Vital Signs Pulse Pulse Resp BP Pulse Ox O2 Del Method 01/14/24 03:28 68 16 136/74 95 Room Air 01/13/24 23:38 74 Laboratory Results Abnormal lab results 01/13/24 01/14/24 Range/Units 17:18 09:51 RBC 4.08 L (4.20-5.40) M/uL RDW Std Deviation 46.4 H (36.4-46.3) fL Chloride 108 H (98-107) mmol/L BUN/Creatinine Ratio 25.0 H (10-20) (1) Mandibular fracture Encounter type: initial encounter Fracture type: closed Laterality: un specified laterality Mandible location: unspecified site of mandible Qualified Code(s): S02.609A - Fracture of mandible, unspecified, initial encounter for closed fracture (3) Fall Encounter type: initial encounter Qualified Code(s): W19.XXXA - Unspecified fall, initial encounter
--- NOTE | 2024-01-14 13:11 | Communication Note ---
Date of Service: January 14, 2024 Palliative Medicine Brief Note Consult received/appreciated/chart reviewed. This patient has a planned hospice admission at [facility], came to [facility] bc she had a fall the same day hospice was coming to admit her. There is no acute indication for an urgent inpatient palliative medicine consult. There are no refractory/severe/uncontrolled symptom mgt needs and the plan of care with family and [facility] is clear; additionally, per OMFS consult reccs, there is no surgery indicated for this edentulous patient. Any medical provider can complete a POLST form for patient and in this patient's case, the POLST needs to be completed with her POA Shannon. Hospice med director or SNF physician can do this at [facility] when pt returns. Discussed with primary team. No acute or urgent indication for IP Pall Med consult. Consult declined/pt not seen/NO charge submitted. Please don't hesitate to call me if needed. Dr. Darlene Whitman DNP Director, Palliative Care
[2024-01-14] MEDS: LORazepam 0.5 MG TAB PO PRN (13:47)
[2024-01-14] MEDS: QUEtiapine FUMARATE 25 MG TABLET PO ONE (16:54)
[2024-01-14 18:45] LABS: Appearance Urine Clear (Clear); Bilirubin Urine Negative (Negative); Blood Urine Negative (Negative); Color Urine Yellow; Glucose Urine UA Negative (Negative); Ketones Urine 1+ (Negative); Leukocyte Esterase Urine Negative (Negative); Nitrite Urine Negative (Negative); Protein Urine Negative (Negative); Specific Gravity Urine 1.015 (1.000-1.030); Urobilinogen Urine Negative (Negative); pH Urine 8.5 (4.5-7.5)
[2024-01-15] MEDS: amLODIPine BESYLATE 5 MG TAB PO SCH (13:10)
--- NOTE | 2024-01-15 13:36 | Hospitalist Progress Note ---
Date of Service January 15, 2024 Assessment & Plan (1) Mandibular fracture: (2) Weakness: (3) Fall: (4) Unspecified dementia, severe, with other behavioral disturbance: (5) Goals of care, counseling/discussion: Plan 78 year old female that presents to the ED via EMS for evaluation s/p fall x3 on day of Mandibular fracture Secondary to fall H/O Severe dementia with behavioral disturbance --Cervical spine CT: Acute to subacute comminuted mildly displaced fracture of the left mandibular condyle. --CXR negative for acute cardiopulmonary disease. --Head CT negative for ICH/SDH/midline shift. --Pelvis X-ray negative for fracture. --Appreciate oral maxillofacial surgery input --Conservative management Fall precautions Hypertensive urgency ? Situational Started on amlodipine Clonidine as needed Monitor BP Unspecified severe dementia with behavioral disturbance: Weakness: Chronic Was taking Ativan 4 times daily and recently decreased to as needed Continue home meds Goals of care, counseling/discussion: Brother and sister not medically well; CASANDRA Scherer [phone] Reportedly was on hospice for advanced dementia and discharged a few months ago due to lack of progression of disease state Family plans to pursue evaluation by hospice again DVT Px: Teds Code Status: DNR/DNI Disposition: PCP: [facility] Admission and Anticipated Discharge Date Admission Date: January 13, 2024 Subjective Patient is seen and examined at bedside Unable to obtain any history due to dementia No distress on exam Updated patient's family over the phone Blood pressure elevated today Review of Systems Review of Systems: All systems reviewed & are unremarkable except as noted in Subjective Physical Exam Physical Exam: Physical Exam: Vitals signs as noted above General Appearance:Moderately built and nourished, no apparent distress, mandibular ecchymosis Head: normocephalic, Atraumatic Eyes: normal inspection, EOMI Neck: supple, Trachea midline Respiratory/Chest: Normal breath sounds, CTA, No accessory muscle use Cardiovascular: S1, S2, No murmur Abdomen/GI:Soft, Non tender, Bowel sounds present Extremities/Musculoskeletal:normal inspection, no edema Neurologic/Psych:Alert Awake, grossly no focal neurological deficits, +Dementia Skin: normal color, warm Results & Data Results & Data Vital Signs (Past 12 Hours) Vital Signs Temp Pulse Resp BP Pulse Ox O2 Del Method 01/15/24 11:04 36.3 C L 112 H 20 197/99 H 97 Room Air 01/15/24 10:00 Room Air 01/15/24 08:24 36.4 C L 106 H 16 175/91 H 99 Room Air 01/15/24 04:00 36.6 C 91 H 18 173/76 H 98 Room Air Laboratory Results Urine 01/14/24 Range/Units Unknown Urine Color Yellow Urine Appearance Clear (Clear) Urine pH 8.5 H (4.5-7.5) Ur Specific [place] 1.015 (1.000-1.030) Urine Protein Negative (Negative) Urine Glucose (UA) Negative (Negative) (1) Mandibular fracture Encounter type: initial encounter Fracture type: closed Laterality: unspecified laterality Mandible location: unspecified site of mandible Qualified Code(s): S02.609A - Fracture of mandible, unspecified, initial encounter for closed fracture (3) Fall Encounter type: initial encounter Qualified Code(s): W19.XXXA - Unspecified fall, initial encounter
[2024-01-15] MEDS: cloNIDine HCL 0.1 MG TAB PO PRN (13:57)
[2024-01-15 14:49] VITALS: BP 124/76; RESP 16; TEMP 98.6; O2SAT 96
--- NOTE | 2024-01-15 14:50 | Discharge Summary ---
Date of Service January 15, 2024 Admission HPI Per Admitting Provider Ms. Ortega is a 78 year old female that presents to the ED via EMS for evaluation s/p fall x3 today. I was able to speak with Emelia, clinical administrator at [facility] who stated that she did not eat breakfast today. At 1130 today she had a fall; staff was able to lift her back up and she was 'ok'. Later in the day she had two additional falls and they felt that she was weaker than u al. At baseline, she has severe dementia with behavioral disturbance that occurs throughout the day. She does take Ativan for behavioral disturbance and was scheduled until today where it was changed to PRN. She was historically taking it Q4h. She was recently changed from Seroquel to Depakote by kiara but staff reports that the medication change occurred a few months ago. She normally at baseline walks independently. Once in a while she is able to discern where she is, but is mostly AAOx1 at baseline. She has had falls prior to today, but nothing too recent. She is on a regular diet; applesauce with medications. She was on Hospice and she was discharged from Hospice for a while now. She does have a sister and a brother Roly who is not well. Her POA is [facility] [phone]. Hospice Eval and Treat was send over and then today she had the falls and they called EMS. CSCT: Acute to subacute comminuted mildly displaced fracture of the left mandibular condyle. No leukocytosis, labs otherwise unremarkable. CXR negative for acute cardiopulmonary disease. Head CT negative for ICH/SDH/midline shift. Pelvis X- ray negative for fracture. Patient will be admitted for further evaluation and management of her acute mandibular fracture with pain control, maxillofacial surgery consult with Dr. Calhoun, consider Palliative Medicine consultation for goals of care/hospice reeval with POLST form completion prior to return to [facility]. Admission Exam Per Admitting Provider Neuro: AAOx1, no aphagia, memory changes, CNII-XII grossly intact HEENT: head normocephalic, moist mucus membranes CV: S1/S2, (-) M/G/R, (-) edema, cap refill < 3 seconds Resp: Lungs CTA in all sheets. On RA GI: Abdomen S/NT/ND, Ax4 bowel sounds, (-) CVA tenderness Musculoskeletal: 5/5 B/L UE strength, 5/5 B/L LE strength. No gait disturbance Skin: (-) rashes , (-) erythema. L ulnar ecchymosis s/p fall. Mid-mandibular ecchymosis without swelling. Psych: euthymic mood Principal Diagnosis Mandibular fracture Falls Hypertensive urgency Dementia Discharge Data Allergies Allergy/AdvReac Type Severity Reaction Status Date / Time No Known Allergies Allergy Verified 01/13/24 16:21 Consultations 01/13/24 16:12 ED Decision to Admit Stat 01/13/24 16:24 Consult Oromaxillofacial Surgery Routine 01/14/24 12:43 Consult Palliative Care Routine Procedures Performed Laboratory Results WBC 6.88 K/ul (4.8-10.8) 01/13/24 17:18 RBC 4.08 M/uL (4.20-5.40) L 01/13/24 17:18 Hgb 12.6 g/dl (12.0-16.0) 01/13/24 17:18 Hct 37.7 % (37.0-47.0) 01/13/24 17:18 MCV 92.4 fL (80.0-100.0) 01/13/24 17:18 MCH 30.9 pg (25.0-34.0) 01/13/24 17:18 MCHC 33.4 g/dL (32.0-36.0) 01/13/24 17:18 RDW Std Deviation 46.4 fL (36.4-46.3) H 01/13/24 17:18 RDW Coeff of Javier 13.5 % (11.5-14.5) 01/13/24 17:18 Plt Count 177 K/uL (130-400) 01/13/24 17:18 MPV 10.3 fL (9.4-12.4) 01/13/24 17:18 Immature Gran % (Auto) 0.8 % 01/13/24 13:53 Neut % (Auto) 73.7 % 01/13/24 13:53 Lymph % (Auto) 13.7 % 01/13/24 13:53 Schuyler % (Auto) 9.7 % 01/13/24 13:53 Eos % (Auto) 1.5 % 01/13/24 13:53 Baso % (Auto) 0.6 % 01/13/24 13:53 Neut # (Auto) 4.85 K/uL (1.40-6.50) 01/13/24 13:53 Lymph # (Auto) 0.90 K/uL (1.20-3.40) L 01/13/24 13:53 Schuyler # (Auto) 0.64 K/uL (0.11-0.59) H 01/13/24 13:53 Eos # (Auto) 0.10 K/uL (0.00-0.50) 01/13/24 13:53 Baso # (Auto) 0.04 K/uL (0.00-0.20) 01/13/24 13:53 Immature Gran # (Auto) 0.05 K/uL (0.01-0.20) 01/13/24 13:53 PT 10.3 Seconds (9.0-12.0) 01/13/24 13:53 INR 0.9 (0.9-1.1) 01/13/24 13:53 APTT 25 Seconds (21-31) 01/13/24 13:53 PTT Ratio 0.9 01/13/24 13:53 Sodium 140 mmol/L (136-145) 01/14/24 09:51 Potassium 4.7 mmol/L (3.5-5.1) 01/14/24 09:51 Chloride 108 mmol/L (98-107) H 01/14/24 09:51 Carbon Dioxide 25 mmol/L (21-32) 01/14/24 09:51 Anion Gap 7 (3-11) 01/14/24 09:51 BUN 23 mg/dl (6-23) 01/14/24 09:51 Creatinine 0.92 mg/dl (0.6-1.2) 01/14/24 09:51 Est Cr Clr Drug Dosing 36.8 ml/min 01/14/24 09:51 Est GFR ( Amer) 69.6 ml/min 01/14/24 09:51 Est GFR (Non-Af Amer) 60.1 ml/min 01/14/24 09:51 BUN/Creatinine Ratio 25.0 (10-20) H 01/14/24 09:51 Glucose 89 mg/dl (70-99(Fasting)) 01/14/24 09:51 Calcium 9.5 mg/dl (8.6-10.3) 01/14/24 09:51 Phosphorus 3.5 mg/dl (2.5-4.9) 01/14/24 09:51 Magnesium 2.1 mg/dl (1.7-2.4) 01/14/24 09:51 Urine Color Yellow 01/14/24 Unknown Urine Appearance Clear (Clear) 01/14/24 Unknown Urine pH 8.5 (4.5-7.5) H 01/14/24 Unknown Ur Specific [place] 1.015 (1.000-1.030) 01/14/24 Unknown Urine Protein Negative (Negative) 01/14/24 Unknown Urine Glucose (UA) Negative (Negative) 01/14/24 Unknown Urine Ketones 1+ (Negative) H 01/14/24 Unknown Urine Blood Negative (Negative) 01/14/24 Unknown Urine Nitrite Negative (Negative) 01/14/24 Unknown Urine Bilirubin Negative (Negative) 01/14/24 Unknown Urine Urobilinogen Negative (Negative) 01/14/24 Unknown Ur Leukocyte Esterase Negative (Negative) 01/14/24 Unknown Impressions Cervical Spine CT 01/13/24 14:27 CT OF THE CERVICAL SPINE WITHOUT CONTRAST CLINICAL HISTORY: Fall. COMPARISON STUDY: Cervical spine CT December 03, 2021. TECHNIQUE: Helical axial images of the cervical spine were obtained without IV contrast. Sagittal and coronal reconstructions were viewed. Automated exposure control was utilized for the study. A dose lowering technique was utilized adhering to the principles of ALARA. FINDINGS: Incidental note is made of a comminuted mildly displaced fracture of the left mandibular condyle. This fracture is acute to subacute. No cervical spine fractures are present. There is slight anterolisthesis of C4 on C5, minimally increased since CT of December 03, 2021. Disc space narrowing is most pronounced at C5-C6. There is moderate multilevel facet arthrosis. IMPRESSION: 1. No acute cervical spine fracture or subluxation. 2. Acute to subacute comminuted mildly displaced fracture of the left mandibular condyle. ACT 112: Negative or not required by law. Electronically signed by: Yuval Arredondo M.D. 01/13/2024 3:32 PM Chest X-Ray 01/13/24 14:27 XR chest 1V portable CLINICAL HISTORY: Fall. COMPARISON STUDY: Chest radiograph August 22, 2022. FINDINGS: There is no pneumothorax or pleural effusion. No airspace opacities ar e present. Interstitial thickening is similar to prior exams and likely chronic. Cardiomediastinal silhouette is unremarkable. Subpleural biapical opacities favor scarring. IMPRESSION: No acute cardiopulmonary findings. No significant change in appearance of the chest. ACT 112: Negative or not required by law. Electronically signed by: Yuval Arredondo M.D. 01/13/2024 3:[address] 01/13/24 14:27 CT SCAN OF THE BRAIN WITHOUT IV CONTRAST CLINICAL HISTORY: Change in mental status. Fall COMPARISON STUDY: CT of the brain dated 08/22/2022. TECHNIQUE: Unenhanced axial CT scan of the brain is performed from the vertex to the skull base. A dose lowering technique was utilized adhering to the principles of ALARA. The patient was scanned twice due to motion artifact. CT DOSE: 2107.47 mGy.cm FINDINGS: Brain parenchyma: There is age-related involutional change noting advanced confluent subcortical and periventricular microangiopathic disease. There is no hemorrhage, mass effect, or evidence of acute territorial ischemia by CT criteria. Delgadillo-white matter differentiation is preserved. There is a chronic lacunar infarct in the right caudate head. No extra-axial fluid collection is seen. Ventricles, sulci, cisterns: Prominent secondary to involutional change. Intracranial vasculature: There is atherosclerotic calcification of the ca vernous carotid and vertebral artery. Calvarium: The skeletal structures are osteopenic. No depressed calvarial fracture is seen. Sinuses and mastoids: There is mucosal thickening in the right sphenoid sinus. The remaining visualized paranasal sinuses are clear. The mastoid air cells are well pneumatized. Orbits: The bony orbits are grossly intact. There are bilateral ocular lens implants. IMPRESSION: There is no hemorrhage, mass effect, or evidence of acute territorial ischemia by CT criteria noting a motion compromised examination. ACT 112: Negative or not required by law. Electronically signed by: Howard Cevallos M.D. 01/13/2024 3:18 PM Pelvis X-Ray 01/13/24 14:27 XR pelvis 1-2V routine CLINICAL HISTORY: Fall. COMPARISON: Pelvis radiograph and CT of the abdomen and pelvis August 22, 2022. FINDINGS: Sacroiliac joints and symphysis pubis are intact. There is no acute fracture within the pelvis or hips. Hip joint spaces are preserved. There is mild bilateral hip osteophytosis. IMPRESSION: No fractures within the pelvis or hips. ACT 112: Negative or not required by law. Electronically signed by: Yuval Arredondo M.D. 01/13/2024 3:05 PM Ordered Studies 01/13/24 14:27 CT cervical spine wo con Stat CT head/brain wo con Stat Hospital Course (1) Mandibular fracture: (2) Weakness: (3) Fall: (4) Unspecified dementia, severe, with other behavioral disturbance: (5) Goals of care, counseling/discussion: Plan 78 year old female that presents to the ED via EMS for evaluation s/p fall x3 on day of Mandibular fracture Secondary to fall H/O Severe dementia with behavioral disturbance --Cervical spine CT: Acute to subacute comminuted mildly displaced fracture of the left mandibular condyle. --CXR negative for acute cardiopulmonary disease. --Head CT negative for ICH/SDH/midline shift. --Pelvis X-ray negative for fracture. --Appreciate oral maxillofacial surgery input --Conservative management Fall precautions Hypertensive urgency ? Situational Started on amlodipine Clonidine as needed Monitor BP Unspecified severe dementia with behavioral disturbance: Weakness: Chronic Was taking Ativan 4 times daily and recently decreased to as needed Continue home meds Goals of care, counseling/discussion: Brother and sister not medically well; CASANDRA Scherer [phone] Reportedly was on hospice for advanced dementia and discharged a few months ago due to lack of progression of disease state Family plans to pursue evaluation by hospice again DVT Px: Teds Code Status: DNR/DNI Disposition: PCP: Janet Zuluaga Total Time Total Time Spent Total Time Spent (In Minutes): 55 minutes Discharge Plan Discharge Items Patient Disposition: Personal Residential Reason For Visit: WEAKNESS Discharge Diagnosis: Mandibular fracture Falls Hypertensive urgency Dementia Activity: Per Instructions section Exercise/Sports: Gradually increase as tolerated Non-emergency contact: Primary Care Provider Call non-emergency contact if: you have any medication questions, your symptoms worsen, your pain is concerning for you and you have a fever Follow-up/Referrals: Cass Young [Primary Care Provider] - Dietitian Info: Thin liquids Diet: Regular Diet Texture: Pureed (blended smooth) Addtl Attending Provider Instructions: Follow-up with your primary care physician in 1 week --Start taking amlodipine 5 mg daily for better control of blood pressure. Monitor your blood pressure regularly as advised. Further adjustment of medications as needed by your physician. Can use clonidine 0.1 mg twice a day as needed for hypertension (Systolic blood pressure >180 or Diastolic blood pressure>100) Seek immediate medical attention if your symptoms reoccur or worsen Please take all medications as instructed on discharge list below. Please call if you have any questions or problems. You can reach a [facility] [address] [facility] hospitalist on duty at [facility] 24 hours a day by calling [phone] Pending Studies at Discharge: No Stand-Alone Forms: My [facility] [address] [facility] [employer], Smoking Cessation Skilled Items Patient informed of condition?: Yes DNR: Yes Discharge Level of Care: Other Communicable Disease: No Discharge Prognosis: Stable Lines: None Urinary Catheter: No Medications and DC Order Prescriptions: New amlodipine [Norvasc] 5 mg Tablet 5 mg PO QAM Qty: 30 0RF clonidine HCl 0.1 mg Tablet 0.1 mg PO BID PRN (Reason: hypertension SBP>180 or DBP>100) Qty: 30 0RF Continued acetaminophen 325 mg Tablet 650 mg PO Q6 MDD 3 GRAMS APAP/24 HOURS PRN (Reason: Fever Or Pain) divalproex 125 mg capsule, delayed rel sprinkle 125 mg PO BIDM lorazepam 2 mg/mL concentrate 0.5 mg PO Q4H PRN (Reason: Anxiety) Rx Instructions: DOSE 0.5 ML Discharge Orders: Discharge Order (Routine); Ordered 01/15/24 Ordered By: Enoc Bethea Admission Data Admit Date/Time: 01/13/24 16:24 Attending Provider: Enoc Bethea Admit Provider: Radha Leos [place] Care Provider[place] Other Providers: Radha Leos; Adam Calhoun; Darlene Whitman
[2024-01-15 16:11] VITALS: PULSE 112
== END 2024-01-15 16:10 | disposition hospice, home (50) | DRG 158 ==
LOC: ED 14:17 → SUATTDRO 16:24 → EDINP 16:24 → 2W 17:41